=== PATIENT | female | born 1940 ===

== ENCOUNTER 2016-10-07 20:27 | Inpatient (IN) | payer MEDICARE, OTHER ==
[2016-10-07 20:27] VITALS: BMI 34.2
[2016-10-07] MEDS ORDERED: Magnesium Sulfate 2 gm/50 ml 2 GM/50 ML BAG ONE (22:02)
[2016-10-07] MEDS ORDERED: Magnesium Sulfate 2 gm/50 ml 2 GM/50 ML BAG IV STA (22:04)
[2016-10-07] MEDS ORDERED: Albuterol-Ipratrop 3 mg / 0.5 (3 ml) UD INH STA ×3 (22:04→22:08)
[2016-10-07] MEDS ORDERED: Promethazine/Cod 6.25mg-10mg/5ml Syr UD PO STA (22:05)
[2016-10-07 22:16] LABS: BASO # 0.1 K/uL (0.0-0.2); BASO % 1.1 % (0.0-2.0); EOS # 0.1 K/uL (0.0-0.7); EOS % 1.4 % (0.0-4.0); LYMPH # 2.6 K/uL (1.0-4.3); LYMPH % 25.7 % (20.0-40.0); MEAN CORPUSCULAR HEMOGLOBIN 29.1 pg (27.0-31.0); MEAN CORPUSCULAR HGB CONC 33.4 g/dL (33.0-37.0); MEAN PLATELET VOLUME 8.1 fl (7.2-11.7); MONO # 0.5 K/uL (0.0-0.8); MONO % 5.1 % (0.0-10.0); NEUT # 6.7 K/uL (1.8-7.0); NEUT % 66.7 % (50.0-75.0); RED CELL DISTRIBUTION WIDTH 15.2 % (11.5-14.5)
--- NOTE | 2016-10-07 22:17 | ED PDOC ---
HPI: SOB/CHF/COPD Time Seen by Provider: 10/07/16 21:24 Chief Complaint (Nursing): Cough, Cold, Congestion Chief Complaint (Provider): Shortness of Breath History Per: Patient History/Exam Limitations: no limitations Onset/Duration Of Symptoms: Days (2 weeks), Persistent Current Symptoms Are (Timing): Still Present Initiating Event: Upper Respiratory Illness Current Respiratory Medications: See Home Med List Severity: Moderate Associated Symptoms: Productive Cough (white phlegm), Other (bilateral wheeze) Additional Complaint(s): Judy Yoo is a 76 year old female, with a past medical history of coronary artery disease, hypertension, and asthma, who presents to the emergency department for the evaluation of persistent shortness of breath, ongoing for the past 2 weeks. Patient recently saw her primary medical doctor and was prescribed Azithromycin, which she completed; however, no relief was provided. Associated productive cough with white sputum and a bilateral wheeze is currently present. Of note, patient uses a nebulizer every 4 hours. PMD: Christofer Camacho I. Past Medical History Reviewed: Historical Data, Nursing Documentation, Vital Signs Vital Signs: Last Vital Signs Temp 98.0 F 10/08/16 01:27 Pulse 88 10/08/16 01:27 Resp 16 10/08/16 01:27 BP 135/77 10/08/16 01:27 Pulse Ox 100 10/08/16 00:54 - Medical History PMH: Anxiety, Arthritis, Asthma, Bronchitis, CAD, COPD, Emphysema, Gastritis, HTN Denies: HIV, Chronic Kidney Disease Other PMH: Myocardial Infarction, Angina - Surgical History Surgical History: Coronary Stent (x3) - Family History Family History: States: No Known Family Hx - Social History Current smoker - smoking cessation education provided: No Ex-Smoker (has not smoked in the last 12 months): No Alcohol: None Drugs: Denies - Home Medications Home Medications: Ambulatory Orders Medication Instructions Recorded Aspirin [Ecotrin] PO DAILY 10/08/16 Clopidogrel [Plavix] PO DAILY 10/08/16 Esomeprazole Magnesium [Nexium] PO DAILY 10/08/16 Naproxen [Naprosyn Tab] PO DAILY PRN 10/08/16 Simvastatin [Simvastatin] PO DAILY 10/08/16 Valsartan [Diovan] PO DAILY 10/08/16 - Allergies Allergies/Adverse Reactions: Allergies Allergy/AdvReac Type Severity Reaction Status Date / Time ciprofloxacin AdvReac ITCHING Verified 06/09/15 06:16 Curb-65 Severity Score - CURB-65 Severity Score Confusion: No Bun >19mg/dl (>7mmol/L): No Respiratory Rate greater than/equal to 30: No Systolic BP <90 or Diastolic BP less than/equal 60mmHg: No Age >64: Yes Curb-65 Score: 1 Percentage 30-day mortality: 2.7% Review of Systems ROS Statement: Except As Marked, All Systems Reviewed And Found Negative Respiratory: Positive for: Cough, Shortness of Breath, Sputum (white phlegm), Wheezing Physical Exam - Reviewed Nursing Documentation Reviewed: Yes Vital Signs Reviewed: Yes - Physical Exam Appears: Positive for: Non-toxic, No Acute Distress, Uncomfortable Head Exam: Positive for: ATRAUMATIC, NORMOCEPHALIC Skin: Positive for: Normal Color, Warm, Dry Cardiovascular/Chest: Positive for: Regular Rate, Rhythm. Negative for: Murmur Respiratory: Positive for: Wheezing (b/l diffuse expiratory wheeze), Respiratory Distress (mild). Negative for: Normal Breath Sounds Gastrointestinal/Abdominal: Positive for: Normal Exam, Soft. Negative for: Tenderness Back: Positive for: Normal Inspection. Negative for: L CVA Tenderness, R CVA Tenderness Extremity: Positive for: Normal ROM, Swelling (+1 edema lower extremities). Negative for: Tenderness Neurologic/Psych: Positive for: Alert, Oriented - Laboratory Results Result Diagrams: 10/07/16 21:42 10/07/16 21:42 - ECG O2 Sat by Pulse Oximetry: 100 (RA) Pulse Ox Interpretation: Normal - Critical Care Total Time (In Min): 30 Medical Decision Making Medical Decision Makin:24 Initial Impression: 76 year old female with persistent dyspnea and setting of recent outpatient treatment for bronchitis and asthma. Initial Plan: * Chest X-Ray * EKG * CBC * CMP * BNP * Troponin I * Lact Acid, Plasma * Albuterol/Ipratropium 3 ml INH (x3) * Magnesium Sulfate 2 gm in 50 ml IV * Promethazine/Codeine 10 ml PO * methylPREDNISolone 125 mg IVP * Influenza A/B * Peak Flow Pre/Post Treatment (x3) * Blood Culture * Reevaluation Labs reviewed show no clinically sig abnormalities Chest Xray shows RLL infiltrate with effusion Patient will be admitted as d/w Dr Camacho DX Pneumonia, Resp Distress Fair Scribe Attestation: Documented by Gage Rg, acting as a scribe for Farhad Flower MD. Provider Scribe Attestation: All medical record entries made by the Scribe were at my direction and personally dictated by me. I have reviewed the chart and agree that the record accurately reflects my personal performance of the history, physical exam, medical decision making, and the department course for this patient. I have also personally directed, reviewed, and agree with the discharge instructions and disposition. Disposition - Clinical Impression Clinical Impression: Asthma, Respiratory distress, Pneumonia - Disposition Disposition Time: 23:33 Condition: FAIR - Pt Status Changed To: Hospital Disposition Of: Inpatient - Admit Certification Admit to Inpatient:: After my assessment, the patient will require hospitalization for at least two midnights. This is because of the severity of symptoms shown, intensity of services needed, and/or the medical risk in this patient being treated as an outpatient.
[2016-10-07 22:38] LABS: ALB/GLOB RATIO 1.5 (1.0-2.1); ALKALINE PHOSPHATASE 65 U/L (38-126); ALT/SGPT 30 U/L (9-52); AST/SGOT 25 U/L (14-36); BILIRUBIN,TOTAL 1.2 mg/dl (0.2-1.3); BLOOD UREA NITROGEN 16 mg/dl (7-17); CALCIUM 9.8 mg/dL (8.4-10.2); CARBON DIOXIDE 24 mmol/L (22-30); CHLORIDE 104 mmol/L (98-107); GFR AFRICAN-AMERICAN > 60; GLUCOSE,RANDOM 113 mg/dL (65-105); POTASSIUM 4.1 MMOL/L (3.6-5.0); SODIUM 140 mmol/l (132-148); TOTAL PROTEIN 7.1 G/DL (6.3-8.2)
[2016-10-07] MEDS ORDERED: Albuterol-Ipratrop 3 mg / 0.5 (3 ml) UD ONE (23:05)
[2016-10-08] MEDS ORDERED: Azithromycin 500 MG in Sodium Chloride 0.9% 250 ML IVPB STA (00:37)
[2016-10-08] MEDS ORDERED: cefTRIAXone (Rocephin) 1 gm Inj ONE (01:49)
[2016-10-08] MEDS ORDERED: Promethazine/Cod 6.25mg-10mg/5ml Syr UD PO ONE (03:25)
[2016-10-08] MEDS ORDERED: Albuterol-Ipratrop 3 mg / 0.5 (3 ml) UD INH SCH (04:00)
[2016-10-08] MEDS: methylPREDNISolone 60 MG in Sodium Chloride 0.9% 50 ML IV SCH ×4 (04:27→21:49)
[2016-10-08] MEDS: Albuterol-Ipratrop 3 mg / 0.5 (3 ml) UD INH SCH ×3 (07:16→19:10)
[2016-10-08] MEDS: Pantoprazole 40 mg EC Tab PO SCH (08:46)
[2016-10-08] MEDS: Azithromycin 500 MG in Sodium Chloride 0.9% 250 ML IVPB SCH (08:54)
[2016-10-08] MEDS ORDERED: Enoxaparin 30 mg Syringe SC SCH (09:00)
[2016-10-08 09:16] LABS: BASO % 0.1 % (0.0-2.0); EOS % 0.1 % (0.0-4.0); HEMATOCRIT 38.4 % (34.0-47.0); LYMPH # 0.5 K/uL (1.0-4.3); LYMPH % 7.5 % (20.0-40.0); MEAN CELL VOLUME 86.2 fl (81.0-99.0); MEAN CORPUSCULAR HEMOGLOBIN 29.1 pg (27.0-31.0); MEAN CORPUSCULAR HGB CONC 33.7 g/dL (33.0-37.0); MEAN PLATELET VOLUME 8.1 fl (7.2-11.7); MONO % 0.3 % (0.0-10.0); NEUT # 6.5 K/uL (1.8-7.0); PLATELET COUNT 288 K/uL (130-400); RED CELL DISTRIBUTION WIDTH 14.9 % (11.5-14.5)
--- NOTE | 2016-10-08 09:27 | RAD ---
HISTORY: cough COMPARISON: Chest x-ray performed 05/31/15 TECHNIQUE: Chest PA and lateral FINDINGS: Examination limited by habitus. LUNGS: Patchy opacity at the right lung base may reflect infiltrate. Probable mild pulmonary venous congestion. Soft tissue attenuation limits evaluation of the left lung base. Please note that chest x-ray has limited sensitivity for the detection of pulmonary masses. PLEURA: No significant pleural effusion identified. No definite pneumothorax . CARDIOVASCULAR: Cardiomegaly. Atherosclerotic calcifications of the aortic knob. OSSEOUS STRUCTURES: Degenerative changes of the spine. VISUALIZED UPPER ABDOMEN: Unremarkable. OTHER FINDINGS: None. IMPRESSION: Examination markedly limited by habitus. Patchy opacity at the right lung base may reflect pneumonia. Probable mild pulmonary venous congestion. Soft tissue attenuation limits evaluation of the left lung base. Study marked for PA review.
[2016-10-08 09:42] LABS: BLOOD UREA NITROGEN 13 mg/dl (7-17); CALCIUM 9.9 mg/dL (8.4-10.2); CARBON DIOXIDE 23 mmol/L (22-30); CHLORIDE 106 mmol/L (98-107); GFR AFRICAN-AMERICAN > 60; GLUCOSE,RANDOM 199 mg/dL (65-105); POTASSIUM 4.1 MMOL/L (3.6-5.0); SODIUM 141 mmol/l (132-148)
[2016-10-08] MEDS ORDERED: Sodium Chloride 3% for Inhalation 4 ML VIAL.NEB IH PRN (10:56)
[2016-10-08] MEDS: Promethazine 6.25 MG/5 ML CUP PO PRN ×2 (11:52→21:50)
[2016-10-08] MEDS: Enoxaparin 40 mg Syringe SC SCH (11:53)
--- NOTE | 2016-10-08 13:23 | CARD ---
APPROVED REPORT EKG Measurement Heart [id number] <Conclusion> Normal sinus rhythm Normal ECG
[2016-10-08 14:01] LABS: EOSINOPHIL 1 % (0-7); NEUTROPHIL 93 % (42-75); TOTAL CELLS COUNTED 100
[2016-10-08 14:02] LABS: GIANT PLATELETS PRESENT; LARGE PLATELETS PRESENT
--- NOTE | 2016-10-08 16:05 | HP ---
The patient is a 76-year-old female admitted via the Emergency Room because of progressively worsenin g shortness of breath, exercise intolerance, cough, chest tightness for the past several days prior t o presentation. She was seen in the office about 2 weeks prior to this admission and advised admissi on to the hospital, but refused. She has been sick at home, coughing up thick tenacious yellow-green sputum for the past several days. Denies fever or chills, but has shortness of breath and exercise intolerance. PAST MEDICAL HISTORY: Is remarkable for COPD, hypertension, hyperlipidemia, coronary artery disease, status post stent placement in the past and anxiety disorder. FAMILY HISTORY: Noncontributory. SOCIAL HISTORY: She lives alone, does not drink, does not smoke, but her ex- used to smoke. PHYSICAL EXAMINATION: GENERAL: The patient is alert and oriented, appears moderately dyspneic at rest. VITAL SIGNS: Blood pressure 154/68, pulse 69, respiratory rate 19, O2 sat 94% on nasal cannula oxyge n, temperature 97.8 degrees Fahrenheit. SKIN: Shows fair turgor. HEENT: Pupils equal, react to light and accommodation. Mouth shows fair hygiene with mucus engorgem ent of pharynx. NECK: JVP flat. LUNGS: Bilateral coarse rales with wheezing. HEART: S1, S2. ABDOMEN: Soft, nontender, no organomegaly. EXTREMITIES: Shows no edema or cyanosis. CENTRAL NERVOUS SYSTEM: Grossly intact. LABORATORY DATA: Is remarkable for a chest x-ray that shows pneumonia right lung. WBC 10.0, hemoglo bin 12.4, platelet count 277,000. Sodium 140, potassium 4.1, BUN 16, creatinine 0.7. Serum glucose 113. Troponin less than 0.012. EKG: Regular sinus rhythm. IMPRESSION: Pneumonia, right lung, probably community-acquired; history of hypertension, history of coronary artery disease, history of anxiety disorder, and history of hyperlipidemia. PLAN: Aerosolized bronchodilators for COPD, oxygen p.r.n., IV steroids, IV antibiotics. Further the rapy will depend on findings. Antitussives already given. Sputum and blood cultures will be drawn. Christofer aCmacho MD cc: 62 TT: 10/08/2016 16:04:34 dn
[2016-10-09] MEDS: Albuterol-Ipratrop 3 mg / 0.5 (3 ml) UD INH SCH ×4 (02:03→19:35)
[2016-10-09] MEDS: methylPREDNISolone 60 MG in Sodium Chloride 0.9% 50 ML IV SCH ×4 (04:08→21:09)
[2016-10-09] MEDS: Pantoprazole 40 mg EC Tab PO SCH (09:00)
[2016-10-09] MEDS: Azithromycin 500 MG in Sodium Chloride 0.9% 250 ML IVPB SCH (09:17)
--- NOTE | 2016-10-09 10:42 | CP.PCM.PN ---
Subjective - Date & Time of Evaluation Date of Evaluation: 10/09/16 Time of Evaluation: 10:42 - Subjective Subjective: STILL COUGHING SOB AND WHEEZING LESS Objective - Vital Signs/Intake and Output Vital Signs (last 24 hours): Temp Pulse Resp BP Pulse Ox 98 F 97 H 20 170/93 H 99 10/09/16 08:20 10/09/16 08:20 10/09/16 08:20 10/09/16 08:20 10/09/16 08:20 - Medications Medications: Current Medications Acetaminophen (Tylenol 325mg Tab) 650 mg PO Q6 PRN PRN Reason: Headache Last Admin: 10/09/16 09:15 Dose: 650 mg Albuterol/Ipratropium (Duoneb 3 Mg/0.5 Mg (3 Ml) Ud) 3 ml INH RQ6 [facility] Last Admin: 10/09/16 07:28 Dose: 3 ml Aspirin (Ecotrin) 81 mg PO DAILY [facility] Last Admin: 10/09/16 09:00 Dose: 81 mg Atorvastatin Calcium (Lipitor) 10 mg PO DAILY [facility] Last Admin: 10/09/16 09:00 Dose: 10 mg Enoxaparin Sodium (Lovenox) 40 mg SC DAILY [facility] PRN Reason: Protocol Last Admin: 10/08/16 11:53 Dose: 40 mg Methylprednisolone 60 mg/ (Sodium Chloride) 50 mls @ 100 mls/hr IV Q6 [facility] Last Admin: 10/09/16 09:17 Dose: 100 mls/hr Ceftriaxone Sodium 1 gm/ (Sodium Chloride) 100 mls @ 100 mls/hr IVPB DAILY [facility] Last Admin: 10/09/16 09:01 Dose: 100 mls/hr Azithromycin 500 mg/ Sodium (Chloride) 250 mls @ 250 mls/hr IVPB DAILY [facility] Last Admin: 10/09/16 09:17 Dose: 250 mls/hr Naproxen (Naprosyn Tab) 375 mg PO DAILY PRN PRN Reason: Pain, Mild (1-3) Last Admin: 10/08/16 13:56 Dose: 375 mg Pantoprazole Sodium (Protonix Ec Tab) 40 mg PO DAILY [facility] Last Admin: 10/09/16 09:00 Dose: 40 mg Promethazine HCl (Phenergan Syrup) 6.25 mg PO Q6 PRN PRN Reason: Cough Last Admin: 10/08/16 21:50 Dose: 6.25 mg Valsartan (Diovan) 160 mg PO DAILY [facility] - Labs Labs: 10/08/16 08:30 10/08/16 08:30 - Constitutional Appears: No Acute Distress - Head Exam Head Exam: ATRAUMATIC, NORMAL INSPECTION, NORMOCEPHALIC - Eye Exam Eye Exam: EOMI, Normal appearance, PERRL Pupil Exam: NORMAL ACCOMODATION, PERRL - ENT Exam ENT Exam: Mucous Membranes Moist, Normal Exam - Neck Exam Neck Exam: Full ROM, Normal Inspection. absent: Lymphadenopathy - Respiratory Exam Respiratory Exam: Decreased Breath Sounds, Rales, Wheezes, NORMAL BREATHING PATTERN - Cardiovascular Exam Cardiovascular Exam: REGULAR RHYTHM, +S1, +S2. absent: Murmur - GI/Abdominal Exam GI & Abdominal Exam: Soft, Normal Bowel Sounds. absent: Tenderness - Rectal Exam Rectal Exam: NORMAL INSPECTION - Extremities Exam Extremities Exam: Full ROM, Normal Capillary Refill, Normal Inspection. absent : Joint Swelling, Pedal Edema - Back Exam Back Exam: NORMAL INSPECTION - Neurological Exam Neurological Exam: Alert, Awake, CN II-XII Intact, Normal Gait, Oriented x3 - Psychiatric Exam Psychiatric exam: Normal Affect, Normal Mood - Skin Skin Exam: Dry, Intact, Normal Color, Warm Assessment and Plan - Assessment and Plan (Free Text) Assessment: ACUTE EXAC OF COPD PNEUMONIA-COMMUNITY ACQUIRED HTN ASHD Plan: ADJUST BP MEDS CONTINUE RX ORDERED
[2016-10-09] MEDS: Enoxaparin 40 mg Syringe SC SCH (11:01)
[2016-10-09] MEDS: Promethazine 6.25 MG/5 ML CUP PO PRN ×2 (11:07→21:55)
[2016-10-10] MEDS: Albuterol-Ipratrop 3 mg / 0.5 (3 ml) UD INH SCH ×4 (01:15→19:27)
[2016-10-10] MEDS: methylPREDNISolone 60 MG in Sodium Chloride 0.9% 50 ML IV SCH ×4 (04:14→22:00)
--- NOTE | 2016-10-10 08:31 | CP.PCM.PN ---
Subjective - Date & Time of Evaluation Date of Evaluation: 10/10/16 Time of Evaluation: 08:31 - Subjective Subjective: STILL COUGHING AND DYSPNEIC AT REST Objective - Vital Signs/Intake and Output Vital Signs (last 24 hours): Temp Pulse Resp BP Pulse Ox 98.6 F 80 18 169/83 H 93 L 10/10/16 07:54 10/10/16 07:54 10/10/16 07:54 10/10/16 07:54 10/10/16 07:54 - Medications Medications: Current Medications Acetaminophen (Tylenol 325mg Tab) 650 mg PO Q6 PRN PRN Reason: Headache Last Admin: 10/09/16 21:55 Dose: 650 mg Albuterol/Ipratropium (Duoneb 3 Mg/0.5 Mg (3 Ml) Ud) 3 ml INH RQ6 [facility] Last Admin: 10/10/16 07:42 Dose: 3 ml Aspirin (Ecotrin) 81 mg PO DAILY [facility] Last Admin: 10/09/16 09:00 Dose: 81 mg Atorvastatin Calcium (Lipitor) 10 mg PO DAILY [facility] Last Admin: 10/09/16 09:00 Dose: 10 mg Enoxaparin Sodium (Lovenox) 40 mg SC DAILY [facility] PRN Reason: Protocol Last Admin: 10/09/16 11:01 Dose: 40 mg Methylprednisolone 60 mg/ (Sodium Chloride) 50 mls @ 100 mls/hr IV Q6 [facility] Last Admin: 10/10/16 04:14 Dose: 100 mls/hr Ceftriaxone Sodium 1 gm/ (Sodium Chloride) 100 mls @ 100 mls/hr IVPB DAILY [facility] Last Admin: 10/09/16 09:01 Dose: 100 mls/hr Azithromycin 500 mg/ Sodium (Chloride) 250 mls @ 250 mls/hr IVPB DAILY [facility] Last Admin: 10/09/16 09:17 Dose: 250 mls/hr Naproxen (Naprosyn Tab) 375 mg PO DAILY PRN PRN Reason: Pain, Mild (1-3) Last Admin: 10/09/16 12:21 Dose: 375 mg Pantoprazole Sodium (Protonix Ec Tab) 40 mg PO DAILY [facility] Last Admin: 10/09/16 09:00 Dose: 40 mg Promethazine HCl (Phenergan Syrup) 6.25 mg PO Q6 PRN PRN Reason: Cough Last Admin: 10/09/16 21:55 Dose: 6.25 mg Valsartan (Diovan) 160 mg PO DAILY [facility] - Labs Labs: 10/08/16 08:30 10/08/16 08:30 - Constitutional Appears: In Acute Distress - Head Exam Head Exam: ATRAUMATIC, NORMAL INSPECTION, NORMOCEPHALIC - Eye Exam Eye Exam: EOMI, Normal appearance, PERRL Pupil Exam: NORMAL ACCOMODATION, PERRL - ENT Exam ENT Exam: Mucous Membranes Moist, Normal Exam - Neck Exam Neck Exam: Full ROM, Normal Inspection. absent: Lymphadenopathy - Respiratory Exam Respiratory Exam: Decreased Breath Sounds, Prolonged Expiratory Phase, Rales, NORMAL BREATHING PATTERN - Cardiovascular Exam Cardiovascular Exam: REGULAR RHYTHM, +S1, +S2. absent: Murmur - GI/Abdominal Exam GI & Abdominal Exam: Soft, Normal Bowel Sounds. absent: Tenderness - Rectal Exam Rectal Exam: NORMAL INSPECTION - Extremities Exam Extremities Exam: Full ROM, Normal Capillary Refill, Normal Inspection. absent : Joint Swelling, Pedal Edema - Back Exam Back Exam: NORMAL INSPECTION - Neurological Exam Neurological Exam: Alert, Awake, CN II-XII Intact, Normal Gait, Oriented x3 - Psychiatric Exam Psychiatric exam: Normal Affect, Normal Mood - Skin Skin Exam: Dry, Intact, Normal Color, Warm Assessment and Plan - Assessment and Plan (Free Text) Assessment: ACUTE EXAC OF COPD PNEUMONIA ASHD HTN Plan: ADD MUCOMYST TO RX CONSIDER TCU PRIOR TO D/C HOME
[2016-10-10] MEDS: Promethazine 6.25 MG/5 ML CUP PO PRN ×3 (08:37→20:37)
[2016-10-10] MEDS: Enoxaparin 40 mg Syringe SC SCH (08:38)
[2016-10-10] MEDS: Pantoprazole 40 mg EC Tab PO SCH (08:39)
[2016-10-10] MEDS: Azithromycin 500 MG in Sodium Chloride 0.9% 250 ML IVPB SCH (08:40)
--- NOTE | 2016-10-10 12:36 | RAD ---
HISTORY: pneumonia COMPARISON: Chest x-ray performed 10/07/16 TECHNIQUE: Chest PA and lateral FINDINGS: Examination limited by habitus. LUNGS: Azygos lobe, anatomic variant. Mild subsegmental bibasilar atelectasis. Please note that chest x-ray has limited sensitivity for the detection of pulmonary masses. PLEURA: No significant pleural effusion identified. No definite pneumothorax . CARDIOVASCULAR: Borderline cardiomegaly. Atherosclerotic calcifications of the aorta. OSSEOUS STRUCTURES: Osseous demineralization. Degenerative changes. VISUALIZED UPPER ABDOMEN: Unremarkable. OTHER FINDINGS: None. IMPRESSION: Mild subsegmental bibasilar atelectasis.
[2016-10-10] MEDS: Acetylcysteine 20% Inhal Soln (4ml) INH SCH ×2 (13:05→19:27)
[2016-10-10] MEDS ORDERED: Acetylcysteine 20% Inhal Soln (4ml) INH SCH (20:00)
[2016-10-11] MEDS: Albuterol-Ipratrop 3 mg / 0.5 (3 ml) UD INH SCH ×3 (01:23→13:20)
[2016-10-11] MEDS: methylPREDNISolone 60 MG in Sodium Chloride 0.9% 50 ML IV SCH ×2 (04:04→12:40)
[2016-10-11 07:51] LABS: HEMATOCRIT 36.2 % (34.0-47.0); MEAN CELL VOLUME 86.3 fl (81.0-99.0); MEAN CORPUSCULAR HEMOGLOBIN 28.6 pg (27.0-31.0); MEAN CORPUSCULAR HGB CONC 33.1 g/dL (33.0-37.0); RED CELL DISTRIBUTION WIDTH 15.3 % (11.5-14.5); WHITE BLOOD COUNT 11.8 K/uL (4.8-10.8)
[2016-10-11 08:06] LABS: BLOOD UREA NITROGEN 25 mg/dl (7-17); CALCIUM 9.4 mg/dL (8.4-10.2); CARBON DIOXIDE 24 mmol/L (22-30); CHLORIDE 106 mmol/L (98-107); GFR AFRICAN-AMERICAN > 60; GLUCOSE,RANDOM 135 mg/dL (65-105); POTASSIUM 3.6 MMOL/L (3.6-5.0); SODIUM 144 mmol/l (132-148)
[2016-10-11] MEDS: Acetylcysteine 20% Inhal Soln (4ml) INH SCH (08:23)
--- NOTE | 2016-10-11 08:39 | CP.PCM.PN ---
Subjective - Date & Time of Evaluation Date of Evaluation: 10/11/16 Time of Evaluation: 08:39 - Subjective Subjective: REFUSING IV ANTIBIOTICS BECAUSE OF BURNING SENSATION STILL COUGHING WITH SOME SOB Objective - Vital Signs/Intake and Output Vital Signs (last 24 hours): Temp Pulse Resp BP Pulse Ox 99.2 F 62 20 171/72 H 98 10/11/16 07:57 10/11/16 07:57 10/11/16 07:57 10/11/16 07:57 10/11/16 07:57 - Medications Medications: Current Medications Acetaminophen (Tylenol 325mg Tab) 650 mg PO Q6 PRN PRN Reason: Headache Last Admin: 10/10/16 08:35 Dose: 650 mg Acetylcysteine (Acetylcysteine 20%) 2 ml INH RBID [facility] Last Admin: 10/11/16 08:23 Dose: Not Given Albuterol/Ipratropium (Duoneb 3 Mg/0.5 Mg (3 Ml) Ud) 3 ml INH RQ6 [facility] Last Admin: 10/11/16 08:23 Dose: Not Given Aspirin (Ecotrin) 81 mg PO DAILY [facility] Last Admin: 10/10/16 08:38 Dose: 81 mg Atorvastatin Calcium (Lipitor) 10 mg PO DAILY [facility] Last Admin: 10/10/16 08:38 Dose: 10 mg Enoxaparin Sodium (Lovenox) 40 mg SC DAILY [facility] PRN Reason: Protocol Last Admin: 10/10/16 08:38 Dose: 40 mg Methylprednisolone 60 mg/ (Sodium Chloride) 50 mls @ 100 mls/hr IV Q6 [facility] Last Admin: 10/11/16 04:04 Dose: Not Given Ceftriaxone Sodium 1 gm/ (Sodium Chloride) 100 mls @ 100 mls/hr IVPB DAILY [facility] Last Admin: 10/10/16 08:39 Dose: 100 mls/hr Doxycycline Hyclate 100 mg/ (Sodium Chloride) 100 mls @ 100 mls/hr IVPB Q12 [facility] Last Admin: 10/10/16 20:36 Dose: 100 mls/hr Naproxen (Naprosyn Tab) 375 mg PO BID PRN PRN Reason: Pain, moderate (4-7) Last Admin: 10/10/16 20:35 Dose: 375 mg Pantoprazole Sodium (Protonix Ec Tab) 40 mg PO DAILY [facility] Last Admin: 10/10/16 08:39 Dose: 40 mg Promethazine HCl (Phenergan Syrup) 6.25 mg PO Q6 PRN PRN Reason: Cough Last Admin: 10/10/16 20:37 Dose: 6.25 mg Valsartan (Diovan) 160 mg PO DAILY [facility] - Labs Labs: 10/11/16 06:40 10/11/16 06:40 - Constitutional Appears: Well - Head Exam Head Exam: ATRAUMATIC, NORMAL INSPECTION, NORMOCEPHALIC - Eye Exam Eye Exam: EOMI, Normal appearance, PERRL Pupil Exam: NORMAL ACCOMODATION, PERRL - ENT Exam ENT Exam: Mucous Membranes Moist, Normal Exam - Neck Exam Neck Exam: Full ROM, Normal Inspection. absent: Lymphadenopathy - Respiratory Exam Respiratory Exam: Decreased Breath Sounds, Prolonged Expiratory Phase, Rales, NORMAL BREATHING PATTERN - Cardiovascular Exam Cardiovascular Exam: REGULAR RHYTHM, +S1, +S2. absent: Murmur - GI/Abdominal Exam GI & Abdominal Exam: Soft, Normal Bowel Sounds. absent: Tenderness - Rectal Exam Rectal Exam: NORMAL INSPECTION - Extremities Exam Extremities Exam: Full ROM, Normal Capillary Refill, Normal Inspection. absent : Joint Swelling, Pedal Edema - Back Exam Back Exam: NORMAL INSPECTION - Neurological Exam Neurological Exam: Alert, Awake, CN II-XII Intact, Normal Gait, Oriented x3 - Psychiatric Exam Psychiatric exam: Normal Affect, Normal Mood - Skin Skin Exam: Dry, Intact, Normal Color, Warm Assessment and Plan - Assessment and Plan (Free Text) Assessment: ACUTE EXAC OF COPD PNEUMONIA ASHD Plan: PICC LINE CONTINUE IV ANTIBIOTICS TRANSFER TO TCU
[2016-10-11] MEDS: Promethazine 6.25 MG/5 ML CUP PO PRN (09:29)
[2016-10-11] MEDS: Pantoprazole 40 mg EC Tab PO SCH (09:29)
[2016-10-11] MEDS: Enoxaparin 40 mg Syringe SC SCH (09:29)
[2016-10-11] MEDS ORDERED: Lidocaine 1% Inj (20ml) ONE (10:27)
--- NOTE | 2016-10-11 10:45 | PCM.SURG1 ---
Surgeon's Initial Post Op Note - Surgeon's Notes Surgeon: Raghavendra Shaw MD Freight [place]: NONE Type of Anesthesia: Local Pre-Operative Diagnosis: Poor venous access Operative Findings: Patent right basilic vein seen on ultrasound. Post-Operative Diagnosis: Poor venous access Operation Performed: Single lumen picc placement, 35 cm, via the Right basilic vein. Tip in SVC. Specimen/Specimens Removed: none Estimated Blood Loss: EBL {In ML}: 2 Blood Products Given: N/A Drains Used: No Drains Post-Op Condition: Fair Date of Surgery/Procedure: 10/11/16 Time of Surgery/Procedure: 10:40
[2016-10-11 13:41] VITALS: PULSE 84; RESP 20; TEMP 98.1; O2SAT 98
[2016-10-11 14:54] VITALS: BP 164/92
--- NOTE | 2016-10-11 18:44 | CP.PCM.DIS ---
Provider - Provider Date of Admission: 10/08/16 00:38 Attending physician: Christofer Camacho MD Time Spent in preparation of Discharge (in minutes): 35 Diagnosis - Discharge Diagnosis (1) Anxiety and depression Status: Acute (2) Asthma Status: Acute (3) COPD exacerbation Status: Acute (4) Coronary artery disease Status: Acute (5) HTN (hypertension) Status: Acute (6) Pneumonia Status: Acute Hospital Course - Lab Results Lab Results: Most Recent Lab Values WBC 11.8 K/uL (4.8-10.8) H D 10/11/16 06:40 RBC 4.19 Mil/uL (3.80-5.20) 10/11/16 06:40 Hgb 12.0 g/dL (12.0-16.0) 10/11/16 06:40 Hct 36.2 % (34.0-47.0) 10/11/16 06:40 MCV 86.3 fl (81.0-99.0) 10/11/16 06:40 MCH 28.6 pg (27.0-31.0) 10/11/16 06:40 MCHC 33.1 g/dL (33.0-37.0) 10/11/16 06:40 RDW 15.3 % (11.5-14.5) H 10/11/16 06:40 Plt Count 245 K/uL (130-400) 10/11/16 06:40 MPV 8.1 fl (7.2-11.7) 10/08/16 08:30 Neut % (Auto) 92.0 % (50.0-75.0) H 10/08/16 08:30 Lymph % (Auto) 7.5 % (20.0-40.0) L 10/08/16 08:30 [place] % (Auto) 0.3 % (0.0-10.0) 10/08/16 08:30 Eos % (Auto) 0.1 % (0.0-4.0) 10/08/16 08:30 Baso % (Auto) 0.1 % (0.0-2.0) 10/08/16 08:30 Neut # 6.5 K/uL (1.8-7.0) 10/08/16 08:30 Lymph # 0.5 K/uL (1.0-4.3) L 10/08/16 08:30 [place] # 0.0 K/uL (0.0-0.8) 10/08/16 08:30 Eos # 0.0 K/uL (0.0-0.7) 10/08/16 08:30 Baso # 0.0 K/uL (0.0-0.2) 10/08/16 08:30 Neutrophils % (Manual) 93 % (42-75) H 10/08/16 08:30 Lymphocytes % (Manual) 6 % (20-50) L 10/08/16 08:30 Monocytes % (Manual) 0 % (0-10) 10/08/16 08:30 Eosinophils % (Manual) 1 % (0-7) 10/08/16 08:30 Platelet Estimate Normal (NORMAL) 10/08/16 08:30 Large Platelets Present 10/08/16 08:30 Giant Platelets Present 10/08/16 08:30 Poikilocytosis (manual Slight 10/08/16 08:30 Anisocytosis (manual) Slight 10/08/16 08:30 Tear Drop Cells Slight 10/08/16 08:30 Ovalocytes Slight 10/08/16 08:30 Sodium 144 mmol/l (132-148) 10/11/16 06:40 Potassium 3.6 MMOL/L (3.6-5.0) 10/11/16 06:40 Chloride 106 mmol/L (98-107) 10/11/16 06:40 Carbon Dioxide 24 mmol/L (22-30) 10/11/16 06:40 Anion Gap 17 (10-20) 10/11/16 06:40 BUN 25 mg/dl (7-17) H 10/11/16 06:40 Creatinine 0.8 mg/dL (0.7-1.2) 10/11/16 06:40 Est GFR ( Amer) > 60 10/11/16 06:40 Est GFR (Non-Af Amer) > 60 10/11/16 06:40 Random Glucose 135 mg/dL (65-105) H 10/11/16 06:40 Lactic Acid 1.1 MMOL/L (0.7-2.1) 10/07/16 21:42 Calcium 9.4 mg/dL (8.4-10.2) 10/11/16 06:40 Total Bilirubin 1.2 mg/dl (0.2-1.3) 10/07/16 21:42 AST 25 U/L (14-36) 10/07/16 21:42 ALT 30 U/L (9-52) 10/07/16 21:42 Alkaline Phosphatase 65 U/L (38-126) 10/07/16 21:42 Troponin I < 0.0120 ng/mL (0.00-0.120) 10/07/16 21:42 NT-Pro-B Natriuret Pep 83.6 pg/ml (0-900) 10/07/16 21:42 Total Protein 7.1 G/DL (6.3-8.2) 10/07/16 21:42 Albumin 4.2 g/dL (3.5-5.0) 10/07/16 21:42 Globulin 2.8 gm/dL (2.2-3.9) 10/07/16 21:42 Albumin/Globulin Ratio 1.5 (1.0-2.1) 10/07/16 21:42 Influenza Typ A,B (EIA) Negative for flu a/b (NEGATIVE) 10/07/16 22:06 - Hospital Course Hospital Course: cough with sob persists Discharge Exam - Head Exam Head Exam: ATRAUMATIC, NORMAL INSPECTION, NORMOCEPHALIC - Eye Exam Eye Exam: EOMI, Normal appearance, PERRL Pupil Exam: NORMAL ACCOMODATION, PERRL - Respiratory Exam Respiratory Exam: Decreased Breath Sounds, Rales, Wheezes - GI/Abdominal Exam GI & Abdominal Exam: Normal Bowel Sounds - Rectal Exam Rectal Exam: NORMAL INSPECTION - Neurological Exam Neurological exam: Alert, CN II-XII Intact, Normal Gait, Oriented x3, Reflexes Normal - Psychiatric Exam Psychiatric exam: Normal Affect, Normal Mood - Skin Skin Exam: Dry, Intact, Normal Color, Warm Discharge Plan - Discharge Medications Prescriptions: Doxycycline Hyclate 100 mg IV Q12 #14 vial cefTRIAXone 1 gm [Rocephin 1 gram IVPB] 1 gm IVPB DAILY #7 bag methylPREDNISolone [Solu-MEDROL] 60 mg IV Q8 #6 vial - Follow Up Plan Condition: FAIR Disposition: REHAB FACILITY/REHAB UNIT Patient education suggested?: Yes Instructions: Asthma (DC) Additional Instructions: transfer to transitional care for iv antibiotic rx
--- NOTE | 2016-10-12 10:28 | VASCULAR ---
PROCEDURE: Date of procedure: 10/11/2016 Procedure: 1. Placement of a right arm PICC with ultrasound and fluoroscopic guidance, CPT 75736 2. PICC tip confirmation with spot radiograph and is in the superior vena cava Medications: 1 percent lidocaine Total Fluoro time: 14.4 seconds Radiation: 1.82 mGy EBL: 2 cc HISTORY: Poor venous access TECHNIQUE: Following informed consent and procedure time-out, the patient was placed supine on the interventional table and the right arm prepped and draped in the usual sterile fashion. Ultrasound showed a patent and compressible right basilic vein. After the skin was anesthetized with lidocaine, the basilic vein was accessed with micro micropuncture technique using ultrasound guidance. A guidewire was then advanced under fluoroscopic guidance into the superior vena cava. An image documenting ultrasound guidance for vascular access was permanently saved. The length of the single-lumen 4 [place] PICC was trimmed to 35 centimeters and advanced through a peel-away sheath. The PICC was position with tip of PICC confirm a spot radiograph the superior vena cava. The PICC was secured to the patient's skin. The PICC was flushed. A biopatch and sterile dressing was applied. IMPRESSION: Placement of a single-lumen 4 [place] PICC trimmed to 35 centimeters via right basilic vein. The tip of the PICC is confirmed with spot radiograph and is in the superior vena cava.
== END 2016-10-11 16:57 | DRG 190 ==
LOC: H.ER 20:27 → H.ERHOLD 10-08 00:38 → H.MEDSURG1 10-08 02:55
PROVIDERS: ADMIT Internal Medicine Pulmonary Disease; ATTEND Internal Medicine Pulmonary Disease
PROC: 02HV33Z Insertion of Infusion Device into Superior Vena Cava, Percutaneous Approach (ICD-10-PCS; principal; 2016-10-11)
DX: J44.0 Chronic obstructive pulmonary disease with (acute) lower respiratory infection (principal); J18.9 Pneumonia, unspecified organism; J44.1 Chronic obstructive pulmonary disease with (acute) exacerbation; E78.5 Hyperlipidemia, unspecified; I10 Essential (primary) hypertension; F32.9 Major depressive disorder, single episode, unspecified; F41.9 Anxiety disorder, unspecified; I25.10 Atherosclerotic heart disease of native coronary artery without angina pectoris; Z95.5 Presence of coronary angioplasty implant and graft; I25.2 Old myocardial infarction; J45.909 Unspecified asthma, uncomplicated; Z88.3 Allergy status to other anti-infective agents; K29.70 Gastritis, unspecified, without bleeding; M19.90 Unspecified osteoarthritis, unspecified site

== ENCOUNTER 2016-10-11 12:17 | Inpatient (IN) | payer OTHER ==
[2016-10-11 17:22] VITALS: BMI 35.9
[2016-10-11] MEDS ORDERED: Albuterol-Ipratrop 3 mg / 0.5 (3 ml) UD INH PRN (18:02)
[2016-10-11 18:23] VITALS: RESP 20
[2016-10-12] MEDS: methylPREDNISolone 60 MG in Sodium Chloride 0.9% 50 ML IV SCH ×3 (00:25→17:09)
[2016-10-12] MEDS ORDERED: MethylPREDNISolone 40 mg Vial IV SCH (01:00)
[2016-10-12] MEDS ORDERED: Promethazine 6.25 MG/5 ML CUP PO PRN (07:45)
[2016-10-12] MEDS: Enoxaparin 40 mg Syringe SC SCH (09:42)
[2016-10-12] MEDS: Promethazine 6.25 MG/5 ML CUP PO SCH ×3 (09:43→22:00)
[2016-10-12] MEDS: Pantoprazole 40 mg EC Tab PO SCH (09:43)
[2016-10-12] MEDS: Acetylcysteine 20% Inhal Soln (4ml) INH SCH ×2 (10:31→19:32)
[2016-10-12] MEDS: Albuterol-Ipratrop 3 mg / 0.5 (3 ml) UD INH SCH ×3 (10:32→19:32)
--- NOTE | 2016-10-12 11:28 | HP ---
ADMITTING HISTORY AND PHYSICAL HISTORY OF PRESENT ILLNESS: The patient is a 76-year-old female who was transferred from the medical floor to the transitional care unit for IV antibiotic therapy and physical therapy. She was admitte d because of pneumonia and acute exacerbation of chronic obstructive pulmonary disease. She has had exercise intolerance, cough, chest tightness for the past several days prior to presentation. She wa s seen in the office 3 weeks prior to this presentation, and advised admission to the hospital where she had refused, and finally showed up in the Emergency Room and was found to have pneumonia. PAST MEDICAL HISTORY: Remarkable for COPD, which is due to secondhand smoke from the ex-. David joyner also has a history of coronary artery disease, hypertension, hyperlipidemia, gastritis. FAMILY HISTORY: Nonrevealing. SOCIAL HISTORY: She lives alone, does not smoke or drink. REVIEW OF SYSTEMS: Essentially remarkable for occasional shortness of breath. PHYSICAL EXAMINATION: GENERAL: The patient is alert, oriented, appears to be in mild distress, especially on ambulation. VITAL SIGNS: Blood pressure 160/96, pulse of 85, respiratory rate 20. She is afebrile. O2 sat 96% on nasal cannula oxygen. SKIN: Shows fair turgor. HEENT: Pupils are equal and reactive to light and accommodation. NECK: JVP flat. Mouth shows fair hygiene. LUNGS: Fair aeration with wheezing and rales at both bases. HEART: S1, S2. BREASTS: Normal. ABDOMEN: Soft, nontender. No organomegaly. EXTREMITIES: Show no edema or cyanosis. CENTRAL NERVOUS SYSTEM: Grossly intact. LABORATORY DATA: Pending. Chest x-ray pending, but x-ray done a week ago showed pneumonia. IMPRESSION: Acute exacerbation of chronic obstructive pulmonary disease, pneumonia, hypertension, hi story of coronary artery disease, history of hyperlipidemia, and history of mild anxiety disorder. PLAN: Continue intravenous antibiotic, intravenous steroids, aerosolized bronchodilators. Would obt ain cardiac evaluation regarding uncontrolled hypertension. Christofer Camacho MD cc: [id number] TT: 10/12/2016 11:28:22 jn
--- NOTE | 2016-10-12 16:17 | CP.PCM.CON ---
History of Present Illness - History of Present Illness History of Present Illness: I was asked to see patient by Dr. Camacho. Patient is a 76 year old female with a history of HTN CAD s/p PCI LAD, hypercholesterolemia who presents with progressive cough. The patient had symtpoms for about 2 weeks prior to her arrival. The patient was found to have pneumonia and has been treated with antibiotics. The patient is currently on TCU. Blood pressure has been difficult to control. She has intermittent productive cough. She denies chest pain. Review of Systems - Constitutional Constitutional: absent: As Per HPI, Anorexia, Chills, Daytime Sleepiness, Excessive Sweating, Fatigue, Fever, Frequent Falls, Headache, Increased Appetite , Lethargy, Malaise, Night Sweats, Snoring, Sleep Apnea, Weight Gain, Weight Loss, Weakness, Other - EENT Eyes: absent: As Per HPI, Blind Spots, Blurred Vision, Change in Vision, Decreased Night Vision, Diplopia, Discharge, Dry Eye, Exophthalmos, Floaters, Irritation, Itchy Eyes, Loss of Peripheral Vision, Pain, Photophobia, Requires Corrective Lenses, Sees Flashes, Spots in Vision, Tunnel Vision, Other Visual Disturbances, Loss of Vision, Other Ears: absent: As Per HPI, Decreased Hearing, Ear Discharge, Ear Pain, Tinnitus, Abnormal Hearing, Disequilibrium, Dizziness, Other Nose/Mouth/Throat: absent: As Per HPI, Epistaxis, Nasal Congestion, Nasal Discharge, Nasal Obstruction, Nasal Trauma, Nose Pain, Post Nasal Drip, Sinus Pain, Sinus Pressure, Bleeding Gums, Change in Voice, Dental Pain, Dry Mouth, Dysphagia, Halitosis, Hoarsness, Lip Swelling, Mouth Lesions, Mouth Pain, Odynophagia, Sore Throat, Throat Swelling, Tongue Swelling, Facial Pain, Neck Pain, Neck Mass, Other - Cardiovascular Cardiovascular: absent: As Per HPI, Acrocyanosis, Chest Pain, Chest Pain at Rest , Chest Pain with Activity, Claudication, Diaphoresis, Dyspnea, Dyspnea on Exertion, Edema, Irregular Heart Rhythm, Pain Radiating to Arm/Neck/Jaw, Leg Edema, Leg Ulcers, Lightheadedness, Orthopnea, Palpitations, Paroxysmal Nocturnal Dyspnea, Pedal Edema, Radiating Pain, Rapid Heart Rate, Slow Heart Rate, Syncope, Other - Respiratory Respiratory: Cough, Pain with Coughing - Gastrointestinal Gastrointestinal: absent: As Per HPI, Abdominal Pain, Belching, Bloating, Change in Bowel Habits, Change in Stool Character, Coffee Ground Emesis, Constipation, Cramping, Diarrhea, Dyspepsia, Dysphagia, Early Satiety, Excessive Flatus, Fecal Incontinence, Heartburn, Hematemesis, Hematochezia, Loose Stools, Melena, Nausea, Odynophagia, Temesmus, Vomiting, Other - Genitourinary Genitourinary: absent: As Per HPI, Change in Urinary Stream, Difficulty Urinating, Dysuria, Flank Pain, Hematuria, Pyuria, Nocturia, Urinary Incontinence, Urinary Frequency, Urinary Hesitance, Urinary Urgency, Voiding Freq/Small Amts, Freq UTI, Hx Renal/Bladder Calculi, Hx /Renal Surgery, Bladder Distension, Other - Musculoskeletal Musculoskeletal: absent: As Per HPI, Abnormal Gait, Arthralgias, Atrophy, Back Pain, Deformity, Joint Swelling, Limited Range of Motion, Loss of Height, Muscle Cramps, Muscle Weakness, Myalgias, Neck Pain, Numbness, Radiating Pain into Limb, Stiffness, Tingling, Other - Integumentary Integumentary: absent: As Per HPI, Acne, Alopecia, Bleeding Lesions, Change in Hair, Change in Nails, Change in Pigmentation, Changing Lesions, Dry Skin, Erythema, Furuncle, Hirsutism, Lesions, New Lesions, Non-Healing Lesions, Photosensitivity, Pruritus, Rash, Skin Pain, Skin Ulcer, Sores, Striae, Swelling , Unusual Bruising, Wounds, Jaundice, Other - Neurological Neurological: absent: As Per HPI, Abnormal Gait, Abnormal Hearing, Abnormal Movements, Abnormal Speech, Behavioral Changes, Burning Sensations, Confusion, Convulsions, Disequilibrium, Dizziness, Numbness, Focal Weakness, Frequent Falls , Headaches, Lack of Coordination, Loss of Vision, Memory Loss, Paresthesias, Radicular Pain, Restless Legs, Sensory Deficit, Syncope, Tingling, Tremor, Vertigo, Weakness, Other Visual Disturbances, Other - Psychiatric Psychiatric: absent: As Per HPI, Abnormal Sleep Pattern, Anhedonia, Anxiety, Auditory Hallucinations, Behavioral Changes, Change in Appetite, Change in Libido, Confusion, Depression, Difficulty Concentrating, Hallucinations, Homicidal Ideation, Hopelessness, Irritability, Memory Loss, Mood Swings, Panic Attacks, Paranoia, Suicidal Ideation, Visual Hallucinations, Tactile Hallucinations, Other - Endocrine Endocrine: absent: As Per HPI, Change in Body Appearance, Change in Libido, Cold Intolorance, Deepening of Voice, Excessive Sweating, Fatigue, Flushing, Heat Intolorance, Increase in Ring/Shoe/Hat Size, Palpitations, Polydipsia, Polyphagia, Polyuria, Other - Hematologic/Lymphatic Hematologic: absent: As Per HPI, Easy Bleeding, Easy Bruising, Lymphadenopathy, Other Past Patient History - Past Medical History & Family History Past Medical History?: Yes - Past Social History Smoking Status: Never Smoked - CARDIAC Hx Cardiac Disorders: Yes Hx Hypertension: Yes - PULMONARY Hx Respiratory Disorders: Yes Hx Asthma: Yes Hx Bronchitis: Yes Hx Chronic Obstructive Pulmonary Disease (COPD): Yes Hx Emphysema: Yes Hx Pneumonia: Yes - NEUROLOGICAL Hx Neurological Disorder: No - HEENT Hx HEENT Problems: No - RENAL Hx Chronic Kidney Disease: No - ENDOCRINE/METABOLIC Hx Endocrine Disorders: No Hx Diabetes Insipidus: No - HEMATOLOGICAL/ONCOLOGICAL Hx Blood Disorders: No Hx AIDS: No Hx Human Immunodeficiency Virus (HIV): No - INTEGUMENTARY Hx Dermatological Problems: No - MUSCULOSKELETAL/RHEUMATOLOGICAL Hx Musculoskeletal Disorders: Yes Hx Falls: No - GASTROINTESTINAL Hx Gastrointestinal Disorders: Yes Hx Gastritis: Yes - GENITOURINARY/GYNECOLOGICAL Hx Genitourinary Disorders: No - PSYCHIATRIC Hx Psychophysiologic Disorder: Yes Hx Anxiety: Yes Hx Substance Use: No - SURGICAL HISTORY Hx Surgeries: Yes Hx Coronary Stent: Yes (x3) - ANESTHESIA Hx Anesthesia: Yes Hx Anesthesia Reactions: No Hx Malignant Hyperthermia: No Meds Allergies/Adverse Reactions: Allergies Allergy/AdvReac Type Severity Reaction Status Date / Time ciprofloxacin AdvReac ITCHING Verified 10/11/16 17:21 - Medications Medications: Current Medications Acetaminophen (Tylenol 325mg Tab) 650 mg PO Q6 PRN PRN Reason: Pain, moderate (4-7) Acetylcysteine (Acetylcysteine 20%) 2 ml INH RBID [facility] Last Admin: 10/12/16 10:31 Dose: 2 ml Albuterol/Ipratropium (Duoneb 3 Mg/0.5 Mg (3 Ml) Ud) 3 ml INH RQ6 [facility] Last Admin: 10/12/16 14:00 Dose: 3 ml Aspirin (Ecotrin) 81 mg PO DAILY [facility] Last Admin: 10/12/16 09:41 Dose: 81 mg Atorvastatin Calcium (Lipitor) 10 mg PO HS [facility] Last Admin: 10/11/16 21:27 Dose: 10 mg Enoxaparin Sodium (Lovenox) 40 mg SC DAILY [facility] PRN Reason: Protocol Last Admin: 10/12/16 09:42 Dose: 40 mg Ceftriaxone Sodium 1 gm/ (Sodium Chloride) 100 mls @ 100 mls/hr IVPB DAILY@ 1700 [facility] Doxycycline Hyclate 100 mg/ (Sodium Chloride) 100 mls @ 100 mls/hr IVPB Q12@ 0500,1700 [facility] Last Admin: 10/12/16 05:29 Dose: 100 mls/hr Methylprednisolone 60 mg/ (Sodium Chloride) 50.96 mls @ 50.96 mls/hr IV Q8 [facility] Last Admin: 10/12/16 09:44 Dose: 50.96 mls/hr Naproxen (Naprosyn Tab) 375 mg PO BID PRN PRN Reason: Pain, Mild (1-3) Pantoprazole Sodium (Protonix Ec Tab) 40 mg PO DAILY [facility] Last Admin: 10/12/16 09:43 Dose: 40 mg Promethazine HCl (Phenergan Syrup) 6.25 mg PO Q6 [facility] Last Admin: 10/12/16 09:43 Dose: 6.25 mg Valsartan (Diovan) 320 mg PO DAILY [facility] Last Admin: 10/12/16 10:08 Dose: 320 mg Physical Exam - Constitutional Appears: Non-toxic - Head Exam Head Exam: NORMAL INSPECTION - Eye Exam Eye Exam: Normal appearance - ENT Exam ENT Exam: Mucous Membranes Moist - Neck Exam Neck exam: Positive for: Full Rom - Respiratory Exam Respiratory Exam: Decreased Breath Sounds - Cardiovascular Exam Cardiovascular Exam: REGULAR RHYTHM - GI/Abdominal Exam GI & Abdominal Exam: Normal Bowel Sounds - Rectal Exam Rectal Exam: Deferred - Extremities Exam Extremities exam: Positive for: pedal edema - Back Exam Back exam: NORMAL INSPECTION - Neurological Exam Neurological exam: Alert, Oriented x3 - Psychiatric Exam Psychiatric exam: Normal Affect - Skin Skin Exam: Normal Color Results - Vital Signs Recent Vital Signs: Last Vital Signs Temp 97.9 F 10/12/16 07:58 Pulse 76 10/12/16 10:32 Resp 20 10/12/16 07:58 BP 150/80 10/12/16 07:58 Pulse Ox 98 10/12/16 07:58 Assessment & Plan (1) Coronary artery disease Assessment and Plan: no current angina. recommend plavix Status: Acute (2) HTN (hypertension) Assessment and Plan: blood pressure will need improved control. add Norvasc 10 mg daily Status: Acute (3) Pneumonia Assessment and Plan: on antibiotics Status: Acute
[2016-10-12] MEDS ORDERED: cefTRIAXone IV 1 gm in Dextros 50 ML BAG IVPB SCH (17:00)
[2016-10-13] MEDS: methylPREDNISolone 60 MG in Sodium Chloride 0.9% 50 ML IV SCH ×2 (01:30→08:39)
[2016-10-13] MEDS: Albuterol-Ipratrop 3 mg / 0.5 (3 ml) UD INH SCH ×4 (01:55→19:30)
[2016-10-13] MEDS: Promethazine 6.25 MG/5 ML CUP PO SCH ×4 (04:00→21:00)
[2016-10-13 07:13] LABS: BASO % 0.1 % (0.0-2.0); LYMPH # 0.4 K/uL (1.0-4.3); LYMPH % 5.8 % (20.0-40.0); MEAN CELL VOLUME 86.4 fl (81.0-99.0); MEAN CORPUSCULAR HEMOGLOBIN 29.1 pg (27.0-31.0); MEAN CORPUSCULAR HGB CONC 33.7 g/dL (33.0-37.0); MEAN PLATELET VOLUME 8.7 fl (7.2-11.7); MONO # 0.2 K/uL (0.0-0.8); MONO % 2.6 % (0.0-10.0); NEUT # 6.8 K/uL (1.8-7.0); NEUT % 91.5 % (50.0-75.0); NRBC % 0.1 % (0.0-0.0); PLATELET COUNT 215 K/uL (130-400); WHITE BLOOD COUNT 7.5 K/uL (4.8-10.8)
[2016-10-13 07:14] LABS: BLOOD UREA NITROGEN 25 mg/dl (7-17); CALCIUM 9.1 mg/dL (8.4-10.2); CARBON DIOXIDE 28 mmol/L (22-30); CHLORIDE 100 mmol/L (98-107); CHOLESTEROL 148 mg/dL (0-199); GFR AFRICAN-AMERICAN > 60; GLUCOSE,RANDOM 180 mg/dL (65-105); POTASSIUM 3.9 MMOL/L (3.6-5.0); SODIUM 139 mmol/l (132-148)
[2016-10-13] MEDS: Acetylcysteine 20% Inhal Soln (4ml) INH SCH ×2 (07:47→19:30)
[2016-10-13] MEDS: Enoxaparin 40 mg Syringe SC SCH (08:37)
[2016-10-13] MEDS: Pantoprazole 40 mg EC Tab PO SCH (08:38)
--- NOTE | 2016-10-13 08:50 | CP.PCM.PN ---
Subjective - Date & Time of Evaluation Date of Evaluation: 10/13/16 Time of Evaluation: 08:50 - Subjective Subjective: STILL COUGHING NO CHEST PAINS SOB IMPROVING Objective - Vital Signs/Intake and Output Vital Signs (last 24 hours): Temp Pulse Resp BP Pulse Ox 97.7 F 78 20 171/91 H 92 L 10/13/16 08:15 10/13/16 08:38 10/13/16 08:15 10/13/16 08:38 10/13/16 08:15 - Medications Medications: Current Medications Acetaminophen (Tylenol 325mg Tab) 650 mg PO Q6 PRN PRN Reason: Pain, moderate (4-7) Acetylcysteine (Acetylcysteine 20%) 2 ml INH RBID [facility] Last Admin: 10/13/16 07:47 Dose: 2 ml Albuterol/Ipratropium (Duoneb 3 Mg/0.5 Mg (3 Ml) Ud) 3 ml INH RQ6 [facility] Last Admin: 10/13/16 07:47 Dose: 3 ml Amlodipine Besylate (Norvasc) 10 mg PO DAILY [facility] Last Admin: 10/13/16 08:38 Dose: 10 mg Aspirin (Ecotrin) 81 mg PO DAILY [facility] Last Admin: 10/13/16 08:37 Dose: 81 mg Atorvastatin Calcium (Lipitor) 10 mg PO HS [facility] Last Admin: 10/12/16 22:00 Dose: 10 mg Enoxaparin Sodium (Lovenox) 40 mg SC DAILY [facility] PRN Reason: Protocol Last Admin: 10/13/16 08:37 Dose: 40 mg Ceftriaxone Sodium 1 gm/ (Sodium Chloride) 100 mls @ 100 mls/hr IVPB DAILY@ 1700 [facility] Last Admin: 10/12/16 18:48 Dose: 100 mls/hr Doxycycline Hyclate 100 mg/ (Sodium Chloride) 100 mls @ 100 mls/hr IVPB Q12@ 0500,1700 [facility] Last Admin: 10/13/16 05:27 Dose: 100 mls/hr Methylprednisolone 60 mg/ (Sodium Chloride) 50.96 mls @ 50.96 mls/hr IV Q8 [facility] Last Admin: 10/13/16 08:39 Dose: 50.96 mls/hr Naproxen (Naprosyn Tab) 375 mg PO BID PRN PRN Reason: Pain, Mild (1-3) Pantoprazole Sodium (Protonix Ec Tab) 40 mg PO DAILY [facility] Last Admin: 10/13/16 08:38 Dose: 40 mg Promethazine HCl (Phenergan Syrup) 6.25 mg PO Q6 [facility] Last Admin: 10/13/16 04:00 Dose: 6.25 mg Valsartan (Diovan) 320 mg PO DAILY [facility] Last Admin: 10/13/16 08:39 Dose: 320 mg - Labs Labs: 10/13/16 06:53 10/13/16 06:53 - Constitutional Appears: No Acute Distress - Head Exam Head Exam: ATRAUMATIC, NORMAL INSPECTION, NORMOCEPHALIC - Eye Exam Eye Exam: EOMI, Normal appearance, PERRL Pupil Exam: NORMAL ACCOMODATION, PERRL - ENT Exam ENT Exam: Mucous Membranes Moist, Normal Exam - Neck Exam Neck Exam: Full ROM, Normal Inspection. absent: Lymphadenopathy - Respiratory Exam Respiratory Exam: Decreased Breath Sounds, Prolonged Expiratory Phase, Wheezes, NORMAL BREATHING PATTERN - Cardiovascular Exam Cardiovascular Exam: REGULAR RHYTHM, +S1, +S2. absent: Murmur - GI/Abdominal Exam GI & Abdominal Exam: Soft, Normal Bowel Sounds. absent: Tenderness - Rectal Exam Rectal Exam: NORMAL INSPECTION - Extremities Exam Extremities Exam: Full ROM, Normal Capillary Refill, Normal Inspection. absent : Joint Swelling, Pedal Edema - Back Exam Back Exam: NORMAL INSPECTION - Neurological Exam Neurological Exam: Alert, Awake, CN II-XII Intact, Normal Gait, Oriented x3 - Psychiatric Exam Psychiatric exam: Normal Affect, Normal Mood - Skin Skin Exam: Dry, Intact, Normal Color, Warm Assessment and Plan - Assessment and Plan (Free Text) Assessment: ACUTE EXAC OF COPD PNEUMONIA HTN HYPERGLYCEMIA DUE TO STEROIDS Plan: TAPER STEROIDS CONTINUE OTHER RX
[2016-10-13] MEDS: methylPREDNISolone 40 MG in Sodium Chloride 0.9% 50 ML IV SCH ×2 (10:12→20:54)
[2016-10-13 11:10] LABS: METAMYELOCYTE 1 % (0-0); MYELOCYTE 1 % (0-0); NEUTROPHIL 93 % (42-75); TOTAL CELLS COUNTED 100
--- NOTE | 2016-10-13 13:23 | RAD ---
HISTORY: PNEUMONIA COMPARISON: No prior. TECHNIQUE: Chest PA and lateral FINDINGS: LUNGS: No active pulmonary disease. PLEURA: No significant pleural effusion identified. No pneumothorax apparent. CARDIOVASCULAR: Normal. OSSEOUS STRUCTURES: No significant abnormalities. VISUALIZED UPPER ABDOMEN: Normal. OTHER FINDINGS: None. IMPRESSION: No active disease.
[2016-10-14] MEDS: Albuterol-Ipratrop 3 mg / 0.5 (3 ml) UD INH SCH ×4 (01:00→19:26)
[2016-10-14] MEDS: Promethazine 6.25 MG/5 ML CUP PO SCH ×4 (05:12→21:18)
[2016-10-14] MEDS: Acetylcysteine 20% Inhal Soln (4ml) INH SCH ×2 (07:26→19:26)
[2016-10-14] MEDS: methylPREDNISolone 40 MG in Sodium Chloride 0.9% 50 ML IV SCH (09:36)
[2016-10-14] MEDS: Enoxaparin 40 mg Syringe SC SCH (09:36)
[2016-10-14] MEDS: Pantoprazole 40 mg EC Tab PO SCH (09:39)
--- NOTE | 2016-10-14 11:51 | CP.PCM.PN ---
Subjective - Date & Time of Evaluation Date of Evaluation: 10/14/16 Time of Evaluation: 11:51 - Subjective Subjective: STILL COUGHING SOB IMPROVED NO CHEST PAINS Objective - Vital Signs/Intake and Output Vital Signs (last 24 hours): Temp Pulse Resp BP Pulse Ox 97.7 F 89 20 166/80 H 98 10/14/16 08:40 10/14/16 09:39 10/14/16 08:40 10/14/16 09:39 10/14/16 08:40 - Medications Medications: Current Medications Acetaminophen (Tylenol 325mg Tab) 650 mg PO Q6 PRN PRN Reason: Pain, moderate (4-7) Acetylcysteine (Acetylcysteine 20%) 2 ml INH RBID [facility] Last Admin: 10/14/16 07:26 Dose: 2 ml Albuterol/Ipratropium (Duoneb 3 Mg/0.5 Mg (3 Ml) Ud) 3 ml INH RQ6 [facility] Last Admin: 10/14/16 07:26 Dose: 3 ml Amlodipine Besylate (Norvasc) 10 mg PO DAILY [facility] Last Admin: 10/14/16 09:39 Dose: 10 mg Aspirin (Ecotrin) 81 mg PO DAILY [facility] Last Admin: 10/14/16 09:37 Dose: 81 mg Atorvastatin Calcium (Lipitor) 10 mg PO HS [facility] Last Admin: 10/13/16 21:00 Dose: 10 mg Enoxaparin Sodium (Lovenox) 40 mg SC DAILY [facility] PRN Reason: Protocol Last Admin: 10/14/16 09:36 Dose: 40 mg Ceftriaxone Sodium 1 gm/ (Sodium Chloride) 100 mls @ 100 mls/hr IVPB DAILY@ 1700 [facility] Last Admin: 10/13/16 16:08 Dose: 100 mls/hr Doxycycline Hyclate 100 mg/ (Sodium Chloride) 100 mls @ 100 mls/hr IVPB Q12@ 0500,1700 [facility] Last Admin: 10/14/16 04:56 Dose: 100 mls/hr Methylprednisolone 40 mg/ (Sodium Chloride) 50.64 mls @ 50.96 mls/hr IV Q12 [facility] Last Admin: 10/14/16 09:36 Dose: 50.96 mls/hr Naproxen (Naprosyn Tab) 375 mg PO BID PRN PRN Reason: Pain, Mild (1-3) Pantoprazole Sodium (Protonix Ec Tab) 40 mg PO DAILY [facility] Last Admin: 10/14/16 09:39 Dose: 40 mg Promethazine HCl (Phenergan Syrup) 6.25 mg PO Q6 [facility] Last Admin: 10/14/16 09:39 Dose: 6.25 mg Valsartan (Diovan) 320 mg PO DAILY [facility] Last Admin: 10/13/16 08:39 Dose: 320 mg - Labs Labs: 10/13/16 06:53 10/13/16 06:53 - Constitutional Appears: No Acute Distress - Head Exam Head Exam: ATRAUMATIC, NORMAL INSPECTION, NORMOCEPHALIC - Eye Exam Eye Exam: EOMI, Normal appearance, PERRL Pupil Exam: NORMAL ACCOMODATION, PERRL - ENT Exam ENT Exam: Mucous Membranes Moist, Normal Exam - Neck Exam Neck Exam: Full ROM, Normal Inspection. absent: Lymphadenopathy - Respiratory Exam Respiratory Exam: Decreased Breath Sounds, Prolonged Expiratory Phase, NORMAL BREATHING PATTERN - Cardiovascular Exam Cardiovascular Exam: REGULAR RHYTHM, +S1, +S2. absent: Murmur - GI/Abdominal Exam GI & Abdominal Exam: Soft, Normal Bowel Sounds. absent: Tenderness - Rectal Exam Rectal Exam: NORMAL INSPECTION - Extremities Exam Extremities Exam: Full ROM, Normal Capillary Refill, Normal Inspection. absent : Joint Swelling, Pedal Edema - Back Exam Back Exam: NORMAL INSPECTION - Neurological Exam Neurological Exam: Alert, Awake, CN II-XII Intact, Normal Gait, Oriented x3 - Psychiatric Exam Psychiatric exam: Normal Affect, Normal Mood - Skin Skin Exam: Dry, Intact, Normal Color, Warm Assessment and Plan - Assessment and Plan (Free Text) Assessment: COPD-IMPROVING PNEUMONIA-RESOLVED ASHD HTN Plan: TAPER STEROIDS CHEST PT
[2016-10-15] MEDS: Albuterol-Ipratrop 3 mg / 0.5 (3 ml) UD INH SCH ×4 (01:10→19:50)
[2016-10-15] MEDS: Promethazine 6.25 MG/5 ML CUP PO SCH ×4 (04:54→21:05)
[2016-10-15] MEDS: Acetylcysteine 20% Inhal Soln (4ml) INH SCH ×2 (09:15→19:49)
[2016-10-15] MEDS: Enoxaparin 40 mg Syringe SC SCH (09:20)
[2016-10-15] MEDS: Pantoprazole 40 mg EC Tab PO SCH (09:22)
[2016-10-15] MEDS: methylPREDNISolone 40 MG in Sodium Chloride 0.9% 50 ML IV SCH (09:24)
--- NOTE | 2016-10-15 10:47 | CP.PCM.PN ---
Subjective - Date & Time of Evaluation Date of Evaluation: 10/15/16 Time of Evaluation: 10:47 - Subjective Subjective: CONTINUES TO SHOW CLINICAL IMPROVEMENT COUGH LESS NO SOB Objective - Vital Signs/Intake and Output Vital Signs (last 24 hours): Temp Pulse Resp BP Pulse Ox 97.0 F L 78 20 137/80 100 10/15/16 09:01 10/15/16 09:20 10/15/16 09:01 10/15/16 09:20 10/15/16 09:01 - Medications Medications: Current Medications Acetaminophen (Tylenol 325mg Tab) 650 mg PO Q6 PRN PRN Reason: Pain, moderate (4-7) Acetylcysteine (Acetylcysteine 20%) 2 ml INH RBID [facility] Last Admin: 10/14/16 19:26 Dose: Not Given Albuterol/Ipratropium (Duoneb 3 Mg/0.5 Mg (3 Ml) Ud) 3 ml INH RQ6 [facility] Last Admin: 10/15/16 01:10 Dose: 3 ml Amlodipine Besylate (Norvasc) 10 mg PO DAILY [facility] Last Admin: 10/15/16 09:20 Dose: 10 mg Aspirin (Ecotrin) 81 mg PO DAILY [facility] Last Admin: 10/15/16 09:20 Dose: 81 mg Atorvastatin Calcium (Lipitor) 10 mg PO HS [facility] Last Admin: 10/14/16 21:18 Dose: 10 mg Ceftriaxone Sodium 1 gm/ (Sodium Chloride) 100 mls @ 100 mls/hr IVPB DAILY@ 1700 [facility] Last Admin: 10/14/16 18:30 Dose: 100 mls/hr Doxycycline Hyclate 100 mg/ (Sodium Chloride) 100 mls @ 100 mls/hr IVPB Q12@ 0500,1700 [facility] Last Admin: 10/15/16 04:54 Dose: 100 mls/hr Methylprednisolone 40 mg/ (Sodium Chloride) 50.64 mls @ 50.96 mls/hr IV DAILY [facility] Last Admin: 10/15/16 09:24 Dose: 50.96 mls/hr Naproxen (Naprosyn Tab) 375 mg PO BID PRN PRN Reason: Pain, Mild (1-3) Last Admin: 10/14/16 19:48 Dose: 375 mg Pantoprazole Sodium (Protonix Ec Tab) 40 mg PO DAILY [facility] Last Admin: 05/27/17 09:22 Dose: 40 mg Promethazine HCl (Phenergan Syrup) 6.25 mg PO Q6 [facility] Last Admin: 10/15/16 09:22 Dose: 6.25 mg Valsartan (Diovan) 320 mg PO DAILY [facility] Last Admin: 10/15/16 09:17 Dose: 320 mg - Labs Labs: 10/13/16 06:53 10/13/16 06:53 - Constitutional Appears: No Acute Distress - Head Exam Head Exam: ATRAUMATIC, NORMAL INSPECTION, NORMOCEPHALIC - Eye Exam Eye Exam: EOMI, Normal appearance, PERRL Pupil Exam: NORMAL ACCOMODATION, PERRL - ENT Exam ENT Exam: Mucous Membranes Moist, Normal Exam - Neck Exam Neck Exam: Full ROM, Normal Inspection. absent: Lymphadenopathy - Respiratory Exam Respiratory Exam: Prolonged Expiratory Phase, NORMAL BREATHING PATTERN - Cardiovascular Exam Cardiovascular Exam: REGULAR RHYTHM, +S1, +S2. absent: Murmur - GI/Abdominal Exam GI & Abdominal Exam: Soft, Normal Bowel Sounds. absent: Tenderness - Rectal Exam Rectal Exam: NORMAL INSPECTION - Extremities Exam Extremities Exam: Full ROM, Normal Capillary Refill, Normal Inspection. absent : Joint Swelling, Pedal Edema - Back Exam Back Exam: NORMAL INSPECTION - Neurological Exam Neurological Exam: Alert, Awake, CN II-XII Intact, Normal Gait, Oriented x3 - Psychiatric Exam Psychiatric exam: Normal Affect, Normal Mood - Skin Skin Exam: Dry, Intact, Normal Color, Warm Assessment and Plan - Assessment and Plan (Free Text) Assessment: COPD-IMPROVING PNEUMONIA-RESOLVED HTN-IMPROVED Plan: CONTINUE RX ORDERED
[2016-10-16] MEDS: Albuterol-Ipratrop 3 mg / 0.5 (3 ml) UD INH SCH ×4 (01:02→19:14)
[2016-10-16] MEDS: Promethazine 6.25 MG/5 ML CUP PO SCH ×4 (03:36→22:24)
[2016-10-16] MEDS: Acetylcysteine 20% Inhal Soln (4ml) INH SCH ×2 (07:53→19:14)
[2016-10-16] MEDS: methylPREDNISolone 40 MG in Sodium Chloride 0.9% 50 ML IV SCH (09:00)
[2016-10-16] MEDS: Pantoprazole 40 mg EC Tab PO SCH (09:36)
--- NOTE | 2016-10-16 13:53 | CP.PCM.PN ---
Subjective - Date & Time of Evaluation Date of Evaluation: 10/16/16 Time of Evaluation: 13:53 - Subjective Subjective: STILL COUGHING BUT SOB IMPROVED Objective - Vital Signs/Intake and Output Vital Signs (last 24 hours): Temp Pulse Resp BP Pulse Ox 98.1 F 81 20 169/82 H 99 10/16/16 08:18 10/16/16 09:34 10/16/16 08:18 10/16/16 09:34 10/16/16 08:18 - Medications Medications: Current Medications Acetaminophen (Tylenol 325mg Tab) 650 mg PO Q6 PRN PRN Reason: Pain, moderate (4-7) Acetylcysteine (Acetylcysteine 20%) 2 ml INH RBID [facility] Last Admin: 10/16/16 07:53 Dose: 2 ml Albuterol/Ipratropium (Duoneb 3 Mg/0.5 Mg (3 Ml) Ud) 3 ml INH RQ6 [facility] Last Admin: 10/16/16 13:27 Dose: 3 ml Amlodipine Besylate (Norvasc) 10 mg PO DAILY [facility] Last Admin: 10/16/16 09:34 Dose: 10 mg Aspirin (Ecotrin) 81 mg PO DAILY [facility] Last Admin: 10/16/16 09:37 Dose: 81 mg Atorvastatin Calcium (Lipitor) 10 mg PO HS [facility] Last Admin: 10/15/16 21:05 Dose: 10 mg Hydrochlorothiazide (Hydrodiuril) 25 mg PO DAILY [facility] Last Admin: 10/16/16 09:36 Dose: 25 mg Ceftriaxone Sodium 1 gm/ (Sodium Chloride) 100 mls @ 100 mls/hr IVPB DAILY@ 1700 [facility] Last Admin: 10/15/16 16:06 Dose: 100 mls/hr Doxycycline Hyclate 100 mg/ (Sodium Chloride) 100 mls @ 100 mls/hr IVPB Q12@ 0500,1700 [facility] Last Admin: 10/16/16 05:06 Dose: 100 mls/hr Methylprednisolone 40 mg/ (Sodium Chloride) 50.64 mls @ 50.96 mls/hr IV DAILY [facility] Last Admin: 10/16/16 09:00 Dose: 50.96 mls/hr Naproxen (Naprosyn Tab) 375 mg PO BID PRN PRN Reason: Pain, Mild (1-3) Last Admin: 10/16/16 10:41 Dose: 375 mg Pantoprazole Sodium (Protonix Ec Tab) 40 mg PO DAILY [facility] Last Admin: 10/16/16 09:36 Dose: 40 mg Promethazine HCl (Phenergan Syrup) 6.25 mg PO Q6 [facility] Last Admin: 10/16/16 10:37 Dose: 6.25 mg Valsartan (Diovan) 320 mg PO DAILY [facility] Last Admin: 10/16/16 09:35 Dose: 320 mg - Labs Labs: 10/13/16 06:53 10/13/16 06:53 - Constitutional Appears: No Acute Distress - Head Exam Head Exam: ATRAUMATIC, NORMAL INSPECTION, NORMOCEPHALIC - Eye Exam Eye Exam: EOMI, Normal appearance, PERRL Pupil Exam: NORMAL ACCOMODATION, PERRL - ENT Exam ENT Exam: Mucous Membranes Moist, Normal Exam - Neck Exam Neck Exam: Full ROM, Normal Inspection. absent: Lymphadenopathy - Respiratory Exam Respiratory Exam: Decreased Breath Sounds, Prolonged Expiratory Phase, NORMAL BREATHING PATTERN - Cardiovascular Exam Cardiovascular Exam: REGULAR RHYTHM, +S1, +S2. absent: Murmur - GI/Abdominal Exam GI & Abdominal Exam: Soft, Normal Bowel Sounds. absent: Tenderness - Rectal Exam Rectal Exam: NORMAL INSPECTION - Extremities Exam Extremities Exam: Full ROM, Normal Capillary Refill, Normal Inspection. absent : Joint Swelling, Pedal Edema - Back Exam Back Exam: NORMAL INSPECTION - Neurological Exam Neurological Exam: Alert, Awake, CN II-XII Intact, Normal Gait, Oriented x3 - Psychiatric Exam Psychiatric exam: Normal Affect, Normal Mood - Skin Skin Exam: Dry, Intact, Normal Color, Warm Assessment and Plan - Assessment and Plan (Free Text) Assessment: PNEUMONIA RESOLVED COPD IMPROVING HTN Plan: CONTINUE SAME RX REPEAT LABS IN AM
[2016-10-16] MEDS: Enoxaparin 40 mg Syringe SC SCH (14:38)
[2016-10-17] MEDS: Albuterol-Ipratrop 3 mg / 0.5 (3 ml) UD INH SCH ×4 (01:11→19:15)
[2016-10-17] MEDS: Promethazine 6.25 MG/5 ML CUP PO SCH ×4 (04:30→21:23)
[2016-10-17 06:56] LABS: BASO % 0.2 % (0.0-2.0); HEMATOCRIT 38.3 % (34.0-47.0); LYMPH # 1.2 K/uL (1.0-4.3); LYMPH % 11.4 % (20.0-40.0); MEAN CELL VOLUME 87.1 fl (81.0-99.0); MEAN CORPUSCULAR HEMOGLOBIN 28.7 pg (27.0-31.0); MEAN PLATELET VOLUME 8.6 fl (7.2-11.7); MONO # 0.7 K/uL (0.0-0.8); MONO % 6.3 % (0.0-10.0); NEUT # 8.8 K/uL (1.8-7.0); NEUT % 82.1 % (50.0-75.0); NRBC % 0.1 % (0.0-0.0); RED CELL DISTRIBUTION WIDTH 15.4 % (11.5-14.5); WHITE BLOOD COUNT 10.8 K/uL (4.8-10.8)
[2016-10-17 07:05] LABS: BLOOD UREA NITROGEN 28 mg/dl (7-17); CALCIUM 9.1 mg/dL (8.4-10.2); CARBON DIOXIDE 30 mmol/L (22-30); CHLORIDE 98 mmol/L (98-107); GFR AFRICAN-AMERICAN > 60; GLUCOSE,RANDOM 135 mg/dL (65-105); POTASSIUM 3.5 MMOL/L (3.6-5.0); SODIUM 137 mmol/l (132-148)
[2016-10-17] MEDS: Acetylcysteine 20% Inhal Soln (4ml) INH SCH ×2 (08:22→19:14)
[2016-10-17] MEDS: Enoxaparin 40 mg Syringe SC SCH (09:26)
[2016-10-17] MEDS: Pantoprazole 40 mg EC Tab PO SCH (09:29)
[2016-10-17] MEDS: methylPREDNISolone 40 MG in Sodium Chloride 0.9% 50 ML IV SCH (09:29)
--- NOTE | 2016-10-17 12:26 | CP.PCM.PN ---
Subjective - Date & Time of Evaluation Date of Evaluation: 10/17/16 Time of Evaluation: 12:26 - Subjective Subjective: C/O ARTHRITIS PAINS IN SHOULDERS COUGH IMPROVED NO SOB/CHEST PAINS Objective - Vital Signs/Intake and Output Vital Signs (last 24 hours): Temp Pulse Resp BP Pulse Ox 97.2 F L 81 20 158/81 H 96 10/17/16 08:10 10/17/16 09:28 10/17/16 08:10 10/17/16 09:28 10/17/16 08:10 - Medications Medications: Current Medications Acetaminophen (Tylenol 325mg Tab) 650 mg PO Q6 PRN PRN Reason: Pain, moderate (4-7) Acetylcysteine (Acetylcysteine 20%) 2 ml INH RBID [facility] Last Admin: 10/17/16 08:22 Dose: 2 ml Albuterol/Ipratropium (Duoneb 3 Mg/0.5 Mg (3 Ml) Ud) 3 ml INH RQ6 [facility] Last Admin: 10/17/16 08:23 Dose: 3 ml Amlodipine Besylate (Norvasc) 10 mg PO DAILY [facility] Last Admin: 10/17/16 09:28 Dose: 10 mg Aspirin (Ecotrin) 81 mg PO DAILY [facility] Last Admin: 10/17/16 09:26 Dose: 81 mg Atorvastatin Calcium (Lipitor) 10 mg PO HS [facility] Last Admin: 10/16/16 22:24 Dose: 10 mg Enoxaparin Sodium (Lovenox) 40 mg SC DAILY [facility] PRN Reason: Protocol Last Admin: 10/17/16 09:26 Dose: 40 mg Hydrochlorothiazide (Hydrodiuril) 25 mg PO DAILY [facility] Last Admin: 10/17/16 09:26 Dose: 25 mg Ceftriaxone Sodium 1 gm/ (Sodium Chloride) 100 mls @ 100 mls/hr IVPB DAILY@ 1700 [facility] Last Admin: 10/16/16 17:00 Dose: 100 mls/hr Doxycycline Hyclate 100 mg/ (Sodium Chloride) 100 mls @ 100 mls/hr IVPB Q12@ 0500,1700 [facility] Last Admin: 10/17/16 05:30 Dose: 100 mls/hr Methylprednisolone 40 mg/ (Sodium Chloride) 50.64 mls @ 50.96 mls/hr IV DAILY [facility] Last Admin: 10/17/16 09:29 Dose: 50.96 mls/hr Naproxen (Naprosyn Tab) 375 mg PO BID PRN PRN Reason: Pain, Mild (1-3) Last Admin: 10/17/16 09:27 Dose: 375 mg Pantoprazole Sodium (Protonix Ec Tab) 40 mg PO DAILY [facility] Last Admin: 10/17/16 09:29 Dose: 40 mg Promethazine HCl (Phenergan Syrup) 6.25 mg PO Q6 [facility] Last Admin: 10/17/16 09:29 Dose: 6.25 mg Valsartan (Diovan) 320 mg PO DAILY [facility] Last Admin: 10/17/16 09:25 Dose: 320 mg - Labs Labs: 10/17/16 06:05 10/17/16 06:05 - Constitutional Appears: Well - Head Exam Head Exam: ATRAUMATIC, NORMAL INSPECTION, NORMOCEPHALIC - Eye Exam Eye Exam: EOMI, Normal appearance, PERRL Pupil Exam: NORMAL ACCOMODATION, PERRL - ENT Exam ENT Exam: Mucous Membranes Moist, Normal Exam - Neck Exam Neck Exam: Full ROM, Normal Inspection. absent: Lymphadenopathy - Respiratory Exam Respiratory Exam: Prolonged Expiratory Phase, NORMAL BREATHING PATTERN - Cardiovascular Exam Cardiovascular Exam: REGULAR RHYTHM, +S1, +S2. absent: Murmur - GI/Abdominal Exam GI & Abdominal Exam: Soft, Normal Bowel Sounds. absent: Tenderness - Rectal Exam Rectal Exam: NORMAL INSPECTION - Extremities Exam Extremities Exam: Full ROM, Normal Capillary Refill, Normal Inspection. absent : Joint Swelling, Pedal Edema - Back Exam Back Exam: NORMAL INSPECTION - Neurological Exam Neurological Exam: Alert, Awake, CN II-XII Intact, Normal Gait, Oriented x3 - Psychiatric Exam Psychiatric exam: Normal Affect, Normal Mood - Skin Skin Exam: Dry, Intact, Normal Color, Warm Assessment and Plan - Assessment and Plan (Free Text) Assessment: COPD IMPROVED PNEUMONIA-RESOLVED HTN ASHD ARTHRITIS HYPERGLYCEMIA IMPROVED Plan: CONTINUE SAME RX
[2016-10-18] MEDS: Albuterol-Ipratrop 3 mg / 0.5 (3 ml) UD INH SCH ×4 (00:59→20:23)
[2016-10-18] MEDS: Promethazine 6.25 MG/5 ML CUP PO SCH ×4 (04:47→21:38)
[2016-10-18] MEDS: Acetylcysteine 20% Inhal Soln (4ml) INH SCH ×3 (07:35→20:24)
--- NOTE | 2016-10-18 08:15 | CP.PCM.PN ---
Subjective - Date & Time of Evaluation Date of Evaluation: 10/18/16 Time of Evaluation: 08:16 - Subjective Subjective: CONTINUES TO IMPROVE DENIES CHEST PAIN/SOB COUGH LESS AFEBRILE Objective - Vital Signs/Intake and Output Vital Signs (last 24 hours): Temp Pulse Resp BP Pulse Ox 97.7 F 100 H 20 130/63 100 10/17/16 20:58 10/17/16 20:58 10/17/16 20:58 10/17/16 20:58 10/17/16 20:58 - Medications Medications: Current Medications Acetaminophen (Tylenol 325mg Tab) 650 mg PO Q6 PRN PRN Reason: Pain, moderate (4-7) Acetylcysteine (Acetylcysteine 20%) 2 ml INH RBID [facility] Last Admin: 10/18/16 07:35 Dose: 2 ml Albuterol/Ipratropium (Duoneb 3 Mg/0.5 Mg (3 Ml) Ud) 3 ml INH RQ6 [facility] Last Admin: 10/18/16 07:36 Dose: 3 ml Amlodipine Besylate (Norvasc) 10 mg PO DAILY [facility] Last Admin: 10/17/16 09:28 Dose: 10 mg Aspirin (Ecotrin) 81 mg PO DAILY [facility] Last Admin: 10/17/16 09:26 Dose: 81 mg Atorvastatin Calcium (Lipitor) 10 mg PO HS [facility] Last Admin: 10/17/16 21:22 Dose: 10 mg Enoxaparin Sodium (Lovenox) 40 mg SC DAILY [facility] PRN Reason: Protocol Last Admin: 10/17/16 09:26 Dose: 40 mg Hydrochlorothiazide (Hydrodiuril) 25 mg PO DAILY [facility] Last Admin: 10/17/16 09:26 Dose: 25 mg Doxycycline Hyclate 100 mg/ (Sodium Chloride) 100 mls @ 100 mls/hr IVPB Q12@ 0500,1700 [facility] Last Admin: 10/18/16 04:48 Dose: 100 mls/hr Methylprednisolone 40 mg/ (Sodium Chloride) 50.64 mls @ 50.96 mls/hr IV DAILY [facility] Last Admin: 10/17/16 09:29 Dose: 50.96 mls/hr Naproxen (Naprosyn Tab) 375 mg PO BID PRN PRN Reason: Pain, Mild (1-3) Last Admin: 10/17/16 09:27 Dose: 375 mg Pantoprazole Sodium (Protonix Ec Tab) 40 mg PO DAILY [facility] Last Admin: 10/17/16 09:29 Dose: 40 mg Promethazine HCl (Phenergan Syrup) 6.25 mg PO Q6 [facility] Last Admin: 10/18/16 04:47 Dose: 6.25 mg Valsartan (Diovan) 320 mg PO DAILY [facility] Last Admin: 10/17/16 09:25 Dose: 320 mg - Labs Labs: 10/17/16 06:05 10/17/16 06:05 - Constitutional Appears: No Acute Distress - Head Exam Head Exam: ATRAUMATIC, NORMAL INSPECTION, NORMOCEPHALIC - Eye Exam Eye Exam: EOMI, Normal appearance, PERRL Pupil Exam: NORMAL ACCOMODATION, PERRL - ENT Exam ENT Exam: Mucous Membranes Moist, Normal Exam - Neck Exam Neck Exam: Full ROM, Normal Inspection. absent: Lymphadenopathy - Respiratory Exam Respiratory Exam: Clear to Ausculation Bilateral, Prolonged Expiratory Phase, NORMAL BREATHING PATTERN - Cardiovascular Exam Cardiovascular Exam: REGULAR RHYTHM, +S1, +S2. absent: Murmur - GI/Abdominal Exam GI & Abdominal Exam: Soft, Normal Bowel Sounds. absent: Tenderness - Rectal Exam Rectal Exam: NORMAL INSPECTION - Extremities Exam Extremities Exam: Full ROM, Normal Capillary Refill, Normal Inspection. absent : Joint Swelling, Pedal Edema - Back Exam Back Exam: NORMAL INSPECTION - Neurological Exam Neurological Exam: Alert, Awake, CN II-XII Intact, Normal Gait, Oriented x3 - Psychiatric Exam Psychiatric exam: Normal Affect, Normal Mood - Skin Skin Exam: Dry, Intact, Normal Color, Warm Assessment and Plan - Assessment and Plan (Free Text) Assessment: COPD IMPROVED PNEUMONIA-RESOLVED HTN-STABLE ASHD STABLE Plan: TAPER STEROIDS DISCHARGE IN AM IF STABLE
[2016-10-18] MEDS: methylPREDNISolone 40 MG in Sodium Chloride 0.9% 50 ML IV SCH (08:21)
[2016-10-18] MEDS: Enoxaparin 40 mg Syringe SC SCH (08:22)
[2016-10-18] MEDS: Pantoprazole 40 mg EC Tab PO SCH (08:24)
[2016-10-18 20:22] VITALS: TEMP 98.2
[2016-10-19] MEDS: Albuterol-Ipratrop 3 mg / 0.5 (3 ml) UD INH SCH ×2 (01:15→07:45)
[2016-10-19] MEDS: Promethazine 6.25 MG/5 ML CUP PO SCH ×2 (05:09→09:43)
[2016-10-19] MEDS: Acetylcysteine 20% Inhal Soln (4ml) INH SCH (07:45)
[2016-10-19 08:02] VITALS: BP 150/87; PULSE 107; O2SAT 98
[2016-10-19] MEDS: Pantoprazole 40 mg EC Tab PO SCH (08:35)
[2016-10-19] MEDS: Enoxaparin 40 mg Syringe SC SCH (08:36)
[2016-10-19] MEDS: methylPREDNISolone 40 MG in Sodium Chloride 0.9% 50 ML IV SCH (09:42)
--- NOTE | 2016-10-19 10:30 | CP.PCM.DIS ---
Provider - Provider Date of Admission: 10/11/16 17:22 Attending physician: Christofer Chung MD Time Spent in preparation of Discharge (in minutes): 36 Diagnosis - Discharge Diagnosis (1) Anxiety and depression Status: Acute (2) COPD exacerbation Status: Acute (3) Coronary artery disease Status: Acute (4) HTN (hypertension) Status: Acute (5) Pneumonia Status: Acute Hospital Course - Lab Results Lab Results: Most Recent Lab Values WBC 10.8 K/uL (4.8-10.8) 10/17/16 06:05 RBC 4.39 Mil/uL (3.80-5.20) 10/17/16 06:05 Hgb 12.6 g/dL (12.0-16.0) 10/17/16 06:05 Hct 38.3 % (34.0-47.0) 10/17/16 06:05 MCV 87.1 fl (81.0-99.0) 10/17/16 06:05 MCH 28.7 pg (27.0-31.0) 10/17/16 06:05 MCHC 33.0 g/dL (33.0-37.0) 10/17/16 06:05 RDW 15.4 % (11.5-14.5) H 10/17/16 06:05 Plt Count 192 K/uL (130-400) 10/17/16 06:05 MPV 8.6 fl (7.2-11.7) 10/17/16 06:05 Neut % (Auto) 82.1 % (50.0-75.0) H 10/17/16 06:05 Lymph % (Auto) 11.4 % (20.0-40.0) L 10/17/16 06:05 [place] % (Auto) 6.3 % (0.0-10.0) 10/17/16 06:05 Eos % (Auto) 0.0 % (0.0-4.0) 10/17/16 06:05 Baso % (Auto) 0.2 % (0.0-2.0) 10/17/16 06:05 Neut # 8.8 K/uL (1.8-7.0) H 10/17/16 06:05 Lymph # 1.2 K/uL (1.0-4.3) 10/17/16 06:05 [place] # 0.7 K/uL (0.0-0.8) 10/17/16 06:05 Eos # 0.0 K/uL (0.0-0.7) 10/17/16 06:05 Baso # 0.0 K/uL (0.0-0.2) 10/17/16 06:05 Neutrophils % (Manual) 93 % (42-75) H 10/13/16 06:53 Lymphocytes % (Manual) 4 % (20-50) L 10/13/16 06:53 Monocytes % (Manual) 1 % (0-10) 10/13/16 06:53 Metamyelocytes % 1 % (0-0) H 10/13/16 06:53 Myelocytes % 1 % (0-0) H 10/13/16 06:53 Platelet Estimate Normal (NORMAL) 10/13/16 06:53 Anisocytosis (manual) Slight 10/13/16 06:53 Sodium 137 mmol/l (132-148) 10/17/16 06:05 Potassium 3.5 MMOL/L (3.6-5.0) L 10/17/16 06:05 Chloride 98 mmol/L (98-107) 10/17/16 06:05 Carbon Dioxide 30 mmol/L (22-30) 10/17/16 06:05 Anion Gap 13 (10-20) 10/17/16 06:05 BUN 28 mg/dl (7-17) H 10/17/16 06:05 Creatinine 0.7 mg/dL (0.7-1.2) 10/17/16 06:05 Est GFR ( Amer) > 60 10/17/16 06:05 Est GFR (Non-Af Amer) > 60 10/17/16 06:05 Random Glucose 135 mg/dL (65-105) H 10/17/16 06:05 Calcium 9.1 mg/dL (8.4-10.2) 10/17/16 06:05 Triglycerides 107 mg/DL (0-149) 10/13/16 06:53 Cholesterol 148 mg/dL (0-199) 10/13/16 06:53 LDL Cholesterol Direct 82 mg/dL (0-129) 10/13/16 06:53 HDL Cholesterol 54 MG/DL (30-70) 10/13/16 06:53 - Hospital Course Hospital Course: shortness of breath resolved no chest pain/cough Discharge Exam - Head Exam Head Exam: ATRAUMATIC, NORMAL INSPECTION, NORMOCEPHALIC - Eye Exam Eye Exam: EOMI, Normal appearance, PERRL Pupil Exam: NORMAL ACCOMODATION, PERRL - GI/Abdominal Exam GI & Abdominal Exam: Normal Bowel Sounds - Rectal Exam Rectal Exam: NORMAL INSPECTION - Neurological Exam Neurological exam: Alert, CN II-XII Intact, Normal Gait, Oriented x3, Reflexes Normal - Psychiatric Exam Psychiatric exam: Normal Affect, Normal Mood - Skin Skin Exam: Dry, Intact, Normal Color, Warm Discharge Plan - Follow Up Plan Condition: GOOD Disposition: HOME/ ROUTINE Patient education suggested?: Yes Additional Instructions: discharge today follow up with dr chung
== END 2016-10-19 12:30 | disposition home or self-care (01) | DRG 190 ==
LOC: H.TCU 17:22
PROVIDERS: ADMIT Internal Medicine Pulmonary Disease; ATTEND Internal Medicine Pulmonary Disease
PROC: F07L0FZ Range of Motion and Joint Mobility Treatment of Musculoskeletal System - Lower Back / Lower Extremity using Assistive, Adaptive, Supportive or Protective Equipment (ICD-10-PCS; principal; 2016-10-11)
PROC: F07K0FZ Range of Motion and Joint Mobility Treatment of Musculoskeletal System - Upper Back / Upper Extremity using Assistive, Adaptive, Supportive or Protective Equipment (ICD-10-PCS; 2016-10-11)
PROC: 5A0955Z Assistance with Respiratory Ventilation, Greater than 96 Consecutive Hours (ICD-10-PCS; 2016-10-11)
DX: J44.1 Chronic obstructive pulmonary disease with (acute) exacerbation (principal); J18.9 Pneumonia, unspecified organism; J44.0 Chronic obstructive pulmonary disease with (acute) lower respiratory infection; E78.00 Pure hypercholesterolemia, unspecified; E78.5 Hyperlipidemia, unspecified; F32.9 Major depressive disorder, single episode, unspecified; F41.9 Anxiety disorder, unspecified; I10 Essential (primary) hypertension; I25.10 Atherosclerotic heart disease of native coronary artery without angina pectoris; K29.70 Gastritis, unspecified, without bleeding; T38.0X5A Adverse effect of glucocorticoids and synthetic analogues, initial encounter; R73.9 Hyperglycemia, unspecified; Z88.3 Allergy status to other anti-infective agents; M19.012 Primary osteoarthritis, left shoulder; M19.011 Primary osteoarthritis, right shoulder; Z95.5 Presence of coronary angioplasty implant and graft

== ENCOUNTER 2017-02-11 09:36 | Inpatient (IN) | payer MEDICARE, OTHER ==
[2017-02-11 09:36] VITALS: BMI 34.2
[2017-02-11] MEDS ORDERED: Albuterol-Ipratrop 3 mg / 0.5 (3 ml) UD IH STA (10:05)
--- NOTE | 2017-02-11 10:09 | ED PDOC ---
HPI: Back Time Seen by Provider: 02/11/17 09:53 Chief Complaint (Nursing): Back Pain History Per: Patient Onset/Duration Of Symptoms: Days (3) Current Symptoms Are (Timing): Still Present Quality Of Discomfort: Sharp Severity: Moderate Pain Scale Rating Of: 3 Previous Symptoms: Back Pain Associated Symptoms: None Exacerbating Factor(s): Movement Additional Complaint(s): Sharp right mid upper back pain x 3 days assoc with SOB. Demies cough or fever. Pain worse on movement and inspiration. Past Medical History Vital Signs: Last Vital Signs Temp 97 F L 02/11/17 09:49 Pulse 83 02/11/17 09:49 Resp 18 02/11/17 09:49 BP Pulse Ox 99 02/11/17 09:49 - Medical History PMH: Anxiety, Arthritis, Asthma, Bronchitis, CAD, COPD, Emphysema, Gastritis, HTN, Pneumonia Denies: HIV, Chronic Kidney Disease - Surgical History Surgical History: Coronary Stent (x3) - Family History Family History: States: Unknown Family Hx - Home Medications Home Medications: Ambulatory Orders Medication Instructions Recorded Aspirin [Ecotrin] 81 mg PO DAILY 10/08/16 Clopidogrel [Plavix] 75 mg PO DAILY 10/08/16 Esomeprazole Magnesium [Nexium] 40 mg PO DAILY 10/08/16 Naproxen [Naprosyn Tab] 375 mg PO DAILY PRN 10/08/16 Simvastatin 10 mg PO DAILY 10/08/16 Valsartan [Diovan] 80 mg PO DAILY 10/08/16 Doxycycline Hyclate 100 mg IV Q12 #14 vial 10/11/16 cefTRIAXone 1 gm [Rocephin 1 gram 1 gm IVPB DAILY #7 bag 10/11/16 IVPB] methylPREDNISolone [Solu-MEDROL] 60 mg IV Q8 #6 vial 10/11/16 Albuterol/Ipratropium [Duoneb 3 3 ml INH RQ6 #100 10/19/16 mg/0.5 mg (3 ml) UD] Promethazine DM [Phenergan DM 10 ml PO Q6 #240 dose 10/19/16 Syrup] Promethazine [Phenergan Syrup] 6.25 mg PO Q6 #240 10/19/16 Valsartan [Diovan] 320 mg PO DAILY #90 tab 10/19/16 amLODIPine [Norvasc] 10 mg PO DAILY #90 tab 10/19/16 - Allergies Allergies/Adverse Reactions: Allergies Allergy/AdvReac Type Severity Reaction Status Date / Time ciprofloxacin AdvReac ITCHING Verified 10/11/16 17:21 Review of Systems ROS Statement: Except As Marked, All Systems Reviewed And Found Negative Constitutional: Negative for: Fever Respiratory: Positive for: Shortness of Breath Musculoskeletal: Positive for: Back Pain Physical Exam - Reviewed Nursing Documentation Reviewed: Yes Vital Signs Reviewed: Yes - Physical Exam Appears: Positive for: Non-toxic, No Acute Distress Head Exam: Positive for: ATRAUMATIC, NORMAL INSPECTION, NORMOCEPHALIC Skin: Positive for: Normal Color, Warm, DRY Eye Exam: Positive for: EOMI, Normal appearance, PERRL ENT: Positive for: Normal ENT Inspection Neck: Positive for: Normal, Painless ROM Cardiovascular/Chest: Positive for: Regular Rate, Rhythm Respiratory: Positive for: Decreased Breath Sounds, Rhonchi. Negative for: Wheezing, Respiratory Distress Gastrointestinal/Abdominal: Positive for: Normal Exam, Bowel Sounds, Soft Back: Positive for: Normal Inspection, Other (Tenderness right mid and infrascapular area. No rashes) Extremity: Positive for: Normal ROM Neurologic/Psych: Positive for: Alert, Oriented - ECG O2 Sat by Pulse Oximetry: 99 Disposition - Clinical Impression Clinical Impression: Pneumonia, COPD exacerbation - Patient ED Disposition Is Patient to be Admitted: Yes - Disposition Disposition Time: 11:30 Condition: FAIR Forms: [facility] (Indonesian) - Pt Status Changed To: Hospital Disposition Of: Observation - POA Present On Arrival: None
[2017-02-11] MEDS ORDERED: Albuterol-Ipratrop 3 mg / 0.5 (3 ml) UD ONE (10:11)
--- NOTE | 2017-02-11 10:57 | RAD ---
HISTORY: sob COMPARISON: Comparison is made to 10/13/2016 TECHNIQUE: Chest PA and lateral FINDINGS: LUNGS: Heterogeneous opacities at the right lower lobe which appears smaller in size and associated with mild elevation of the right hemidiaphragm. The possibility of mass lesion or pneumonia should be considered. PLEURA: No significant pleural effusion identified. No pneumothorax apparent. CARDIOVASCULAR: The cardiac silhouette is mildly enlarged. OSSEOUS STRUCTURES: No significant abnormalities. VISUALIZED UPPER ABDOMEN: Normal. OTHER FINDINGS: None. IMPRESSION: New heterogeneous opacities at the central and lower portion of right lung lower lobe. Differential consideration includes pneumonia or central right lower lobe mass lesion. If clinically warranted further assessment by CT may be obtained.
[2017-02-11] MEDS ORDERED: Azithromycin 500 MG in Sodium Chloride 0.9% 250 ML IVPB STA (11:29)
[2017-02-11] MEDS ORDERED: Azithromycin 500 MG IV IVPB ONE (11:38)
[2017-02-11 12:07] LABS: VENOUS BLOOD GAS BASE EXCESS 2.3 mmol/L (0.0-2.0); VENOUS BLOOD GAS PCO2 54 mmHg (40-60); VENOUS BLOOD PH 7.34 (7.32-7.43)
[2017-02-11] MEDS ORDERED: Sodium Chloride 0.9% 1,000 ML IV STA (12:15)
[2017-02-11 12:18] LABS: ALB/GLOB RATIO 1.5 (1.0-2.1); ALKALINE PHOSPHATASE 90 U/L (38-126); ALT/SGPT 28 U/L (9-52); AST/SGOT 19 U/L (14-36); BILIRUBIN,TOTAL 0.9 mg/dl (0.2-1.3); BLOOD UREA NITROGEN 19 mg/dl (7-17); CALCIUM 9.7 mg/dL (8.4-10.2); CARBON DIOXIDE 26 mmol/L (22-30); CHLORIDE 106 mmol/L (98-107); GFR AFRICAN-AMERICAN > 60; GLUCOSE,RANDOM 98 mg/dL (65-105); POTASSIUM 3.5 MMOL/L (3.6-5.0); SODIUM 150 mmol/l (132-148); TOTAL PROTEIN 6.8 G/DL (6.3-8.2)
[2017-02-11 12:28] LABS: BASO # 0.1 K/uL (0.0-0.2); BASO % 1.2 % (0.0-2.0); EOS # 0.2 K/uL (0.0-0.7); EOS % 1.9 % (0.0-4.0); HEMATOCRIT 37.4 % (34.0-47.0); LYMPH # 2.2 K/uL (1.0-4.3); LYMPH % 26.6 % (20.0-40.0); MEAN CELL VOLUME 88.7 fl (81.0-99.0); MEAN CORPUSCULAR HEMOGLOBIN 28.2 pg (27.0-31.0); MEAN CORPUSCULAR HGB CONC 31.8 g/dL (33.0-37.0); MEAN PLATELET VOLUME 8.7 fl (7.2-11.7); MONO # 0.4 K/uL (0.0-0.8); MONO % 4.3 % (0.0-10.0); NEUT # 5.4 K/uL (1.8-7.0); NRBC % 0.2 % (0.0-0.0); RED CELL DISTRIBUTION WIDTH 14.3 % (11.5-14.5); WHITE BLOOD COUNT 8.2 K/uL (4.8-10.8)
[2017-02-11] MEDS ORDERED: cefTRIAXone (Rocephin) 1 gm Inj ONE (13:35)
[2017-02-11] MEDS ORDERED: Magnesium Hydroxide Susp 30 ml UD PO STA ×2 (20:10→20:59)
[2017-02-11] MEDS: Influenza Vaccine 18yr & older 0.5 ML/45 MCG SYR IM ONE ×2 (22:20→22:24)
[2017-02-11] MEDS ORDERED: Pneumococcal 23-Valent Vaccine IM ONE (22:30)
[2017-02-12] MEDS: Albuterol-Ipratrop 3 mg / 0.5 (3 ml) UD INH SCH ×4 (01:00→19:48)
[2017-02-12 06:59] LABS: HEMATOCRIT 35.3 % (34.0-47.0); MEAN CELL VOLUME 87.3 fl (81.0-99.0); MEAN CORPUSCULAR HEMOGLOBIN 28.9 pg (27.0-31.0); MEAN CORPUSCULAR HGB CONC 33.1 g/dL (33.0-37.0); WHITE BLOOD COUNT 6.6 K/uL (4.8-10.8)
[2017-02-12 07:46] LABS: BLOOD UREA NITROGEN 20 mg/dl (7-17); CALCIUM 9.4 mg/dL (8.4-10.2); CHLORIDE 106 mmol/L (98-107); GFR AFRICAN-AMERICAN > 60; GLUCOSE,RANDOM 130 mg/dL (65-105); POTASSIUM 3.8 MMOL/L (3.6-5.0); SODIUM 144 mmol/l (132-148)
[2017-02-12 08:02] LABS: CARBON DIOXIDE 24 mmol/L (22-30)
[2017-02-12] MEDS: methylPREDNISolone 40 MG in Sodium Chloride 0.9% 50 ML IVPB SCH (08:30)
[2017-02-12] MEDS: Enoxaparin 40 mg Syringe SC SCH (08:31)
[2017-02-12] MEDS: Pantoprazole 40 mg EC Tab PO SCH (08:31)
[2017-02-12] MEDS: Pravastatin Sodium 20 MG TAB PO SCH (08:32)
[2017-02-12] MEDS ORDERED: MELOXICAM 15 MG PO SCH (09:00)
[2017-02-12] MEDS ORDERED: Naproxen 500 MG TAB PO SCH (09:00)
[2017-02-12] MEDS: Azithromycin 500 MG in Sodium Chloride 0.9% 250 ML IVPB SCH (09:02)
[2017-02-12] MEDS: Lactobacillus Acidophilus 500 MU Cap PO SCH ×2 (09:06→17:18)
--- NOTE | 2017-02-12 09:35 | CARD ---
APPROVED REPORT EKG Measurement Heart [id number] MD [id number] <Conclusion> Normal sinus rhythm Normal ECG
--- NOTE | 2017-02-12 16:08 | CT ---
PROCEDURE: CT Chest without contrast HISTORY: pneumonia COMPARISON: None. TECHNIQUE: Contiguous axial images were obtained through the chest without intravenous contrast enhancement. Sagittal and coronal reconstructions were performed. Radiation dose (DLP): 621.2 mGy-cm. This CT exam was performed using one or more of the following dose reduction techniques: Automated exposure control, adjustment of the mA and/or kV according to patient size, and/or use of iterative reconstruction technique. FINDINGS: LUNGS: No evidence of focal infiltrate or consolidation in the lungs to suggest pneumonia. Small opacity at the left lung base likely atelectasis. Mild to moderate pulmonary vascular congestion is noted. MEDIASTINUM: Unremarkable thoracic aorta. No aneurysm. Heart is mildly to moderately enlarged. In pulmonary artery is mildly enlarged. [id number] pulmonary vascular congestion. No lymphadenopathy. PLEURA: No pleural fluid. No pneumothorax. BONES: No fracture. No destructive lesion. UPPER ABDOMEN: Grossly unremarkable. OTHER FINDINGS: None. IMPRESSION: No radiographic evidence of pneumonia. [id number] pulmonary vascular congestion and cardiomegaly.
[2017-02-13] MEDS: Albuterol-Ipratrop 3 mg / 0.5 (3 ml) UD INH SCH ×4 (01:00→19:26)
--- NOTE | 2017-02-13 04:35 | HP ---
HISTORY OF PRESENT ILLNESS: Ms. Yoo is a 76-year-old female who was admitted via the emergency room because of 2 days onset of right upper back pain associated with shortness of breath. She denies cough or fever. She was seen in the emergency room and had a chest x-ray that was compatible with pneumonia. She was therefore, admitted for workup and therapy. PAST MEDICAL HISTORY: She has a past medical history of chronic obstructive pulmonary disease, gastritis, hypertension, coronary artery disease, status post stent placement and hypertension with arthritis. FAMILY HISTORY: Noncontributory. SOCIAL HISTORY: Does not smoke or drink. Does not use drugs and lives alone. REVIEW OF SYSTEMS: Remarkable for occasional shortness of breath, abdominal pain and back pain. PHYSICAL EXAMINATION: GENERAL: The patient is alert, oriented, appears to be in some discomfort because of back pain. VITAL SIGNS: Remarkable for blood pressure of 136/65, pulse of 83, respiratory rate 18. She is afebrile. O2 sat is 95% on nasal cannula oxygen. SKIN: Shows fair turgor. HEENT: Pupils are equal and reactive to light and accommodation. Mouth shows fair hygiene. NECK: JVP flat. LUNGS: Fair aeration with some basal rales. HEART: S1 and S2. BREASTS: Normal. ABDOMEN: Soft and nontender. No organomegaly. EXTREMITIES: Show 1+ pitting pedal edema bilaterally. CENTRAL NERVOUS SYSTEM: Grossly intact. GENITAL AND RECTAL: Deferred. LABORATORY DATA: Remarkable for WBC of 6.6, hemoglobin 11.7, platelet count of 292,000. Sodium 150, potassium 3.5, BUN 19, creatinine 0.7. Venous blood gas shows a pH of 7.34, pO2 of 22, pCO2 of 54, O2 saturation 38.2. Chest x-ray is remarkable for new heterogenous opacities of the central and lower portion of the right lower lobe, deferential consideration including pneumonia, central right lower lobe mass lesion. CT scan recommended. IMPRESSION: Pneumonia right lung, exacerbation of chronic obstructive pulmonary disease, history of coronary artery disease, history of hypertension, history of arthritis, history of gastritis. PLAN: Intravenous antibiotics, oxygen, aerosolized bronchodilators, intravenous steroids. We will obtain sputum for Gram stain and culture. We will obtain CT scan of the chest to rule out a pulmonary pathology. Further therapy will depend on findings. Christofer Camacho MD [facility] # [id number]
--- NOTE | 2017-02-13 08:34 | CP.PCM.CON ---
History of Present Illness - History of Present Illness History of Present Illness: patient seen/examined. full consutl to follow. CAD s.p PCI, HTN hypercholesterolemia who presents with back pain. has noted lwoer extremity edema. will assess patient's previous cardiac testing. Past Patient History - Past Medical History & Family History Past Medical History?: Yes - Past Social History Smoking Status: Never Smoked - CARDIAC Hx Cardiac Disorders: Yes Hx Hypertension: Yes - PULMONARY Hx Respiratory Disorders: Yes Hx Asthma: Yes Hx Bronchitis: Yes Hx Chronic Obstructive Pulmonary Disease (COPD): Yes Hx Emphysema: Yes - NEUROLOGICAL Hx Neurological Disorder: No - HEENT Hx HEENT Problems: Yes Hx Glaucoma: Yes - RENAL Hx Chronic Kidney Disease: No - ENDOCRINE/METABOLIC Hx Endocrine Disorders: No Hx Diabetes Insipidus: No - HEMATOLOGICAL/ONCOLOGICAL Hx Blood Disorders: No Hx AIDS: No Hx Human Immunodeficiency Virus (HIV): No - INTEGUMENTARY Hx Dermatological Problems: No - MUSCULOSKELETAL/RHEUMATOLOGICAL Hx Musculoskeletal Disorders: Yes Hx Back Pain: Yes Hx Falls: No - GASTROINTESTINAL Hx Gastrointestinal Disorders: Yes Hx Gastritis: Yes - GENITOURINARY/GYNECOLOGICAL Hx Genitourinary Disorders: No - PSYCHIATRIC Hx Psychophysiologic Disorder: Yes Hx Anxiety: Yes Hx Substance Use: No - SURGICAL HISTORY Hx Surgeries: Yes Hx Coronary Stent: Yes (x3) - ANESTHESIA Hx Anesthesia: Yes Hx Anesthesia Reactions: No Hx Malignant Hyperthermia: No Meds Allergies/Adverse Reactions: Allergies Allergy/AdvReac Type Severity Reaction Status Date / Time ciprofloxacin AdvReac ITCHING Verified 10/11/16 17:21 - Medications Medications: Current Medications Albuterol/Ipratropium (Duoneb 3 Mg/0.5 Mg (3 Ml) Ud) 3 ml INH RQ6 [facility] Last Admin: 02/13/17 07:25 Dose: 3 ml Alprazolam (Xanax) 0.5 mg PO DAILY [facility] Last Admin: 02/12/17 09:02 Dose: 0.5 mg Amlodipine Besylate (Norvasc) 10 mg PO DAILY [facility] Last Admin: 02/12/17 08:33 Dose: 10 mg Aspirin (Ecotrin) 81 mg PO DAILY [facility] Last Admin: 02/12/17 09:06 Dose: 81 mg Clopidogrel Bisulfate (Plavix) 75 mg PO DAILY [facility] Last Admin: 02/12/17 08:32 Dose: 75 mg Enoxaparin Sodium (Lovenox) 40 mg SC DAILY [facility] PRN Reason: Protocol Last Admin: 02/12/17 08:31 Dose: 40 mg Escitalopram Oxalate (Lexapro) 10 mg PO DAILY [facility] Last Admin: 02/12/17 08:31 Dose: 10 mg Ceftriaxone Sodium 1 gm/ (Sodium Chloride) 100 mls @ 100 mls/hr IVPB DAILY [facility] Last Admin: 02/12/17 08:28 Dose: 100 mls/hr Methylprednisolone 40 mg/ (Sodium Chloride) 50 mls @ 100 mls/hr IVPB DAILY [facility] Last Admin: 02/12/17 08:30 Dose: 100 mls/hr Azithromycin 500 mg/ Sodium (Chloride) 250 mls @ 250 mls/hr IVPB DAILY [facility] Last Admin: 02/12/17 09:02 Dose: 250 mls/hr Ketorolac Tromethamine (Toradol) 30 mg IVP Q8 PRN PRN Reason: Pain, Mild (1-3) Last Admin: 02/13/17 00:33 Dose: 30 mg Lactobacillus Acidophilus (Bacid Acidophilus) 1 cap PO BID [facility] Last Admin: 02/12/17 17:18 Dose: 1 cap Losartan Potassium (Cozaar) 25 mg PO DAILY [facility] Last Admin: 02/12/17 08:35 Dose: 25 mg Pantoprazole Sodium (Protonix Ec Tab) 40 mg PO DAILY [facility] Last Admin: 02/12/17 08:31 Dose: 40 mg Pravastatin Sodium (Pravachol) 20 mg PO DAILY [facility] Last Admin: 02/12/17 08:32 Dose: 20 mg Results - Vital Signs Recent Vital Signs: Last Vital Signs Temp 98.5 F 02/13/17 08:12 Pulse 72 02/13/17 08:12 Resp 18 02/13/17 08:12 BP 168/94 H 02/13/17 08:12 Pulse Ox 96 02/13/17 08:12 - Labs Result Diagrams: 02/12/17 07:00 02/12/17 05:30
--- NOTE | 2017-02-13 08:34 | CP.PCM.CON ---
Past Patient History - Past Medical History & Family History Past Medical History?: Yes - Past Social History Smoking Status: Never Smoked - CARDIAC Hx Cardiac Disorders: Yes Hx Hypertension: Yes - PULMONARY Hx Respiratory Disorders: Yes Hx Asthma: Yes Hx Bronchitis: Yes Hx Chronic Obstructive Pulmonary Disease (COPD): Yes Hx Emphysema: Yes - NEUROLOGICAL Hx Neurological Disorder: No - HEENT Hx HEENT Problems: Yes Hx Glaucoma: Yes - RENAL Hx Chronic Kidney Disease: No - ENDOCRINE/METABOLIC Hx Endocrine Disorders: No Hx Diabetes Insipidus: No - HEMATOLOGICAL/ONCOLOGICAL Hx Blood Disorders: No Hx AIDS: No Hx Human Immunodeficiency Virus (HIV): No - INTEGUMENTARY Hx Dermatological Problems: No - MUSCULOSKELETAL/RHEUMATOLOGICAL Hx Musculoskeletal Disorders: Yes Hx Back Pain: Yes Hx Falls: No - GASTROINTESTINAL Hx Gastrointestinal Disorders: Yes Hx Gastritis: Yes - GENITOURINARY/GYNECOLOGICAL Hx Genitourinary Disorders: No - PSYCHIATRIC Hx Psychophysiologic Disorder: Yes Hx Anxiety: Yes Hx Substance Use: No - SURGICAL HISTORY Hx Surgeries: Yes Hx Coronary Stent: Yes (x3) - ANESTHESIA Hx Anesthesia: Yes Hx Anesthesia Reactions: No Hx Malignant Hyperthermia: No Meds Allergies/Adverse Reactions: Allergies Allergy/AdvReac Type Severity Reaction Status Date / Time ciprofloxacin AdvReac ITCHING Verified 10/11/16 17:21 - Medications Medications: Current Medications Albuterol/Ipratropium (Duoneb 3 Mg/0.5 Mg (3 Ml) Ud) 3 ml INH RQ6 [facility] Last Admin: 02/13/17 07:25 Dose: 3 ml Alprazolam (Xanax) 0.5 mg PO DAILY [facility] Last Admin: 02/12/17 09:02 Dose: 0.5 mg Amlodipine Besylate (Norvasc) 10 mg PO DAILY [facility] Last Admin: 02/12/17 08:33 Dose: 10 mg Aspirin (Ecotrin) 81 mg PO DAILY [facility] Last Admin: 02/12/17 09:06 Dose: 81 mg Clopidogrel Bisulfate (Plavix) 75 mg PO DAILY [facility] Last Admin: 02/12/17 08:32 Dose: 75 mg Enoxaparin Sodium (Lovenox) 40 mg SC DAILY [facility] PRN Reason: Protocol Last Admin: 02/12/17 08:31 Dose: 40 mg Escitalopram Oxalate (Lexapro) 10 mg PO DAILY [facility] Last Admin: 02/12/17 08:31 Dose: 10 mg Ceftriaxone Sodium 1 gm/ (Sodium Chloride) 100 mls @ 100 mls/hr IVPB DAILY [facility] Last Admin: 02/12/17 08:28 Dose: 100 mls/hr Methylprednisolone 40 mg/ (Sodium Chloride) 50 mls @ 100 mls/hr IVPB DAILY [facility] Last Admin: 02/12/17 08:30 Dose: 100 mls/hr Azithromycin 500 mg/ Sodium (Chloride) 250 mls @ 250 mls/hr IVPB DAILY [facility] Last Admin: 02/12/17 09:02 Dose: 250 mls/hr Ketorolac Tromethamine (Toradol) 30 mg IVP Q8 PRN PRN Reason: Pain, Mild (1-3) Last Admin: 02/13/17 00:33 Dose: 30 mg Lactobacillus Acidophilus (Bacid Acidophilus) 1 cap PO BID [facility] Last Admin: 02/12/17 17:18 Dose: 1 cap Losartan Potassium (Cozaar) 25 mg PO DAILY [facility] Last Admin: 02/12/17 08:35 Dose: 25 mg Pantoprazole Sodium (Protonix Ec Tab) 40 mg PO DAILY [facility] Last Admin: 02/12/17 08:31 Dose: 40 mg Pravastatin Sodium (Pravachol) 20 mg PO DAILY [facility] Last Admin: 02/12/17 08:32 Dose: 20 mg Results - Vital Signs Recent Vital Signs: Last Vital Signs Temp 98.5 F 02/13/17 08:12 Pulse 72 02/13/17 08:12 Resp 18 02/13/17 08:12 BP 168/94 H 02/13/17 08:12 Pulse Ox 96 02/13/17 08:12 - Labs Result Diagrams: 02/12/17 07:00 02/12/17 05:30
[2017-02-13] MEDS ORDERED: guaiFENesin DM 200 mg-20 mg/10 ml UD PO PRN (08:36)
--- NOTE | 2017-02-13 08:40 | CP.PCM.PN ---
Subjective - Date & Time of Evaluation Date of Evaluation: 02/13/17 Time of Evaluation: 08:41 - Subjective Subjective: CONTINUES TO C/O CHEST AND BACK PAINS WITH SHORTNESS OF BRETH C/O SORETHROAT AND DRY COUGH Objective - Vital Signs/Intake and Output Vital Signs (last 24 hours): Temp Pulse Resp BP Pulse Ox 98.5 F 72 18 168/94 H 96 02/13/17 08:12 02/13/17 08:12 02/13/17 08:12 02/13/17 08:12 02/13/17 08:12 - Medications Medications: Current Medications Albuterol/Ipratropium (Duoneb 3 Mg/0.5 Mg (3 Ml) Ud) 3 ml INH RQ6 [facility] Last Admin: 02/13/17 07:25 Dose: 3 ml Alprazolam (Xanax) 0.5 mg PO DAILY [facility] Last Admin: 02/12/17 09:02 Dose: 0.5 mg Amlodipine Besylate (Norvasc) 10 mg PO DAILY [facility] Last Admin: 02/12/17 08:33 Dose: 10 mg Aspirin (Ecotrin) 81 mg PO DAILY [facility] Last Admin: 02/12/17 09:06 Dose: 81 mg Clopidogrel Bisulfate (Plavix) 75 mg PO DAILY [facility] Last Admin: 02/12/17 08:32 Dose: 75 mg Enoxaparin Sodium (Lovenox) 40 mg SC DAILY [facility] PRN Reason: Protocol Last Admin: 02/12/17 08:31 Dose: 40 mg Escitalopram Oxalate (Lexapro) 10 mg PO DAILY [facility] Last Admin: 02/12/17 08:31 Dose: 10 mg Guaifenesin/Dextromethorphan (Robitussin Dm) 10 ml PO Q6 PRN PRN Reason: Cough Ceftriaxone Sodium 1 gm/ (Sodium Chloride) 100 mls @ 100 mls/hr IVPB DAILY [facility] Last Admin: 02/12/17 08:28 Dose: 100 mls/hr Methylprednisolone 40 mg/ (Sodium Chloride) 50 mls @ 100 mls/hr IVPB DAILY [facility] Last Admin: 02/12/17 08:30 Dose: 100 mls/hr Azithromycin 500 mg/ Sodium (Chloride) 250 mls @ 250 mls/hr IVPB DAILY [facility] Last Admin: 02/12/17 09:02 Dose: 250 mls/hr Ketorolac Tromethamine (Toradol) 30 mg IVP Q8 PRN PRN Reason: Pain, Mild (1-3) Last Admin: 02/13/17 00:33 Dose: 30 mg Lactobacillus Acidophilus (Bacid Acidophilus) 1 cap PO BID [facility] Last Admin: 02/12/17 17:18 Dose: 1 cap Losartan Potassium (Cozaar) 25 mg PO DAILY [facility] Last Admin: 02/12/17 08:35 Dose: 25 mg Pantoprazole Sodium (Protonix Ec Tab) 40 mg PO DAILY [facility] Last Admin: 02/12/17 08:31 Dose: 40 mg Pravastatin Sodium (Pravachol) 20 mg PO DAILY [facility] Last Admin: 02/12/17 08:32 Dose: 20 mg - Labs Labs: 02/12/17 07:00 02/12/17 05:30 - Constitutional Appears: Chronically Ill - Head Exam Head Exam: ATRAUMATIC, NORMAL INSPECTION, NORMOCEPHALIC - Eye Exam Eye Exam: EOMI, Normal appearance, PERRL Pupil Exam: NORMAL ACCOMODATION, PERRL - ENT Exam ENT Exam: Mucous Membranes Moist, Normal Exam - Neck Exam Neck Exam: Full ROM, Normal Inspection. absent: Lymphadenopathy - Respiratory Exam Respiratory Exam: Decreased Breath Sounds, Prolonged Expiratory Phase, Rales, NORMAL BREATHING PATTERN - Cardiovascular Exam Cardiovascular Exam: REGULAR RHYTHM, +S1, +S2. absent: Murmur - GI/Abdominal Exam GI & Abdominal Exam: Soft, Normal Bowel Sounds. absent: Tenderness - Rectal Exam Rectal Exam: NORMAL INSPECTION - Extremities Exam Extremities Exam: Full ROM, Normal Capillary Refill, Normal Inspection, Pedal Edema. absent: Joint Swelling - Back Exam Back Exam: NORMAL INSPECTION - Neurological Exam Neurological Exam: Abnormal Gait, Alert, Awake, CN II-XII Intact, Oriented x3 - Psychiatric Exam Psychiatric exam: Normal Affect, Normal Mood - Skin Skin Exam: Dry, Intact, Normal Color, Warm Assessment and Plan - Assessment and Plan (Free Text) Assessment: ACUTE EXAC OF COPD BACK PAINS ?PNEUMONIA--NOT EVIDENT ON CT SCAN OF CHEST PULMONARY CONGESTION PEDAL EDEMA ASHD HTN Plan: CONTINUE PRESENT RX CARDIOLOGY CONSULT PHYSICAL RX EVAL
[2017-02-13] MEDS: Lactobacillus Acidophilus 500 MU Cap PO SCH ×2 (10:02→17:59)
[2017-02-13] MEDS: Enoxaparin 40 mg Syringe SC SCH (10:03)
[2017-02-13] MEDS: Pravastatin Sodium 20 MG TAB PO SCH (10:04)
[2017-02-13] MEDS: Pantoprazole 40 mg EC Tab PO SCH (10:05)
[2017-02-13] MEDS: methylPREDNISolone 40 MG in Sodium Chloride 0.9% 50 ML IVPB SCH (10:05)
[2017-02-13] MEDS: Azithromycin 500 MG in Sodium Chloride 0.9% 250 ML IVPB SCH (10:06)
[2017-02-14] MEDS: Albuterol-Ipratrop 3 mg / 0.5 (3 ml) UD INH SCH ×3 (01:18→13:23)
[2017-02-14] MEDS: Pravastatin Sodium 20 MG TAB PO SCH (09:01)
[2017-02-14] MEDS: Enoxaparin 40 mg Syringe SC SCH (09:01)
[2017-02-14] MEDS: Pantoprazole 40 mg EC Tab PO SCH (09:02)
--- NOTE | 2017-02-14 09:06 | CP.PCM.PN ---
Subjective - Date & Time of Evaluation Date of Evaluation: 02/14/17 Time of Evaluation: 09:08 - Subjective Subjective: CONTINUES TO HAVE BODYACHES SORETHROAT WITH INABILITY TO EXPECTORATE SPUTUM C/O SHORTNESS OF BREATH AND CHILLS POOR IV ACCESS Objective - Vital Signs/Intake and Output Vital Signs (last 24 hours): Temp Pulse Resp BP Pulse Ox 98.7 F 77 20 142/73 95 02/14/17 08:42 02/14/17 09:01 02/14/17 08:42 02/14/17 09:01 02/14/17 08:42 - Medications Medications: Current Medications Albuterol/Ipratropium (Duoneb 3 Mg/0.5 Mg (3 Ml) Ud) 3 ml INH RQ6 [facility] Last Admin: 02/14/17 08:24 Dose: 3 ml Alprazolam (Xanax) 0.5 mg PO DAILY [facility] Last Admin: 02/14/17 09:03 Dose: 0.5 mg Amlodipine Besylate (Norvasc) 10 mg PO DAILY [facility] Last Admin: 02/14/17 09:01 Dose: 10 mg Aspirin (Ecotrin) 81 mg PO DAILY [facility] Last Admin: 02/14/17 09:00 Dose: 81 mg Clopidogrel Bisulfate (Plavix) 75 mg PO DAILY [facility] Last Admin: 02/14/17 09:01 Dose: 75 mg Enoxaparin Sodium (Lovenox) 40 mg SC DAILY [facility] PRN Reason: Protocol Last Admin: 02/14/17 09:01 Dose: 40 mg Escitalopram Oxalate (Lexapro) 10 mg PO DAILY [facility] Last Admin: 02/14/17 09:00 Dose: 10 mg Guaifenesin/Dextromethorphan (Robitussin Dm) 10 ml PO Q6 PRN PRN Reason: Cough Ceftriaxone Sodium 1 gm/ (Sodium Chloride) 100 mls @ 100 mls/hr IVPB DAILY [facility] Last Admin: 02/13/17 10:06 Dose: 100 mls/hr Methylprednisolone 40 mg/ (Sodium Chloride) 50 mls @ 100 mls/hr IVPB DAILY [facility] Last Admin: 02/13/17 10:05 Dose: 100 mls/hr Azithromycin 500 mg/ Sodium (Chloride) 250 mls @ 250 mls/hr IVPB DAILY [facility] Last Admin: 02/13/17 10:06 Dose: 250 mls/hr Ketorolac Tromethamine (Toradol) 30 mg IVP Q8 PRN PRN Reason: Pain, Mild (1-3) Last Admin: 02/14/17 00:00 Dose: 30 mg Lactobacillus Acidophilus (Bacid Acidophilus) 1 cap PO BID [facility] Last Admin: 02/13/17 17:59 Dose: 1 cap Losartan Potassium (Cozaar) 25 mg PO DAILY [facility] Last Admin: 02/14/17 09:00 Dose: 25 mg Pantoprazole Sodium (Protonix Ec Tab) 40 mg PO DAILY [facility] Last Admin: 02/14/17 09:02 Dose: 40 mg Pravastatin Sodium (Pravachol) 20 mg PO DAILY [facility] Last Admin: 02/14/17 09:01 Dose: 20 mg - Labs Labs: 02/12/17 07:00 02/12/17 05:30 - Constitutional Appears: In Acute Distress - Head Exam Head Exam: ATRAUMATIC, NORMAL INSPECTION, NORMOCEPHALIC - Eye Exam Eye Exam: EOMI, Normal appearance, PERRL Pupil Exam: NORMAL ACCOMODATION, PERRL - ENT Exam ENT Exam: Mucous Membranes Moist, Normal Exam - Neck Exam Neck Exam: Full ROM, Normal Inspection. absent: Lymphadenopathy - Respiratory Exam Respiratory Exam: Decreased Breath Sounds, Prolonged Expiratory Phase, Rales, Respiratory Distress, NORMAL BREATHING PATTERN - Cardiovascular Exam Cardiovascular Exam: REGULAR RHYTHM, +S1, +S2. absent: Murmur - GI/Abdominal Exam GI & Abdominal Exam: Soft, Normal Bowel Sounds. absent: Tenderness - Rectal Exam Rectal Exam: NORMAL INSPECTION - Extremities Exam Extremities Exam: Full ROM, Normal Capillary Refill, Normal Inspection, Pedal Edema. absent: Joint Swelling - Back Exam Back Exam: NORMAL INSPECTION, tenderness - Neurological Exam Neurological Exam: Alert, Awake, CN II-XII Intact, Normal Gait, Oriented x3 - Psychiatric Exam Psychiatric exam: Normal Affect, Normal Mood - Skin Skin Exam: Dry, Intact, Normal Color, Warm Assessment and Plan - Assessment and Plan (Free Text) Assessment: ACUTE EXAC OF COPD ACUTE BRONCHITIS PNEUMONIA RULED OUT ASHD HTN ARTHRITIS Plan: PICC LINE ACCESS FOR ANTIBIOTIC RX ADD MUCOMYST TO RX TRANSFER TO TCU ONCE A BED IS AVAILABLE
[2017-02-14] MEDS: Lactobacillus Acidophilus 500 MU Cap PO SCH ×2 (09:19→16:30)
[2017-02-14] MEDS ORDERED: Lidocaine 1% Inj (20ml) ONE (12:44)
--- NOTE | 2017-02-14 13:23 | PCM.SURG1 ---
Surgeon's Initial Post Op Note - Surgeon's Notes Surgeon: Raghavendra Shaw MD [employer] Helper: NONE Type of Anesthesia: Local Pre-Operative Diagnosis: Poor venous access Operative Findings: US showed a patent right basilic vein Post-Operative Diagnosis: Poor venous access Operation Performed: Single lumen picc placement right basilic vein. Specimen/Specimens Removed: None Estimated Blood Loss: EBL {In ML}: 2 Blood Products Given: N/A Drains Used: No Drains Post-Op Condition: Good Date of Surgery/Procedure: 02/14/17 Time of Surgery/Procedure: 13:15
[2017-02-14] MEDS: methylPREDNISolone 40 MG in Sodium Chloride 0.9% 50 ML IVPB SCH (14:16)
--- NOTE | 2017-02-14 16:41 | VASCULAR ---
PROCEDURE: Date of procedure: 02/14/2017 Procedure: 1. Placement of a right arm PICC with ultrasound and fluoroscopic guidance, CPT 31386 2. PICC tip confirmation with spot radiograph and is in the superior vena cava Medications: 1 percent lidocaine Total Fluoro time: 19.7 seconds Radiation: 2.45 MGy EBL: 2 cc HISTORY: Infection requiring long-term IV antibiotics TECHNIQUE: Following informed consent and procedure time-out, the patient was placed supine on the interventional table and the right arm prepped and draped in the usual sterile fashion. Ultrasound showed a patent and compressible right basilic vein. After the skin was anesthetized with lidocaine, the basilic vein was accessed with micro micropuncture technique using ultrasound guidance. A guidewire was then advanced under fluoroscopic guidance into the superior vena cava. An image documenting ultrasound guidance for vascular access was permanently saved. The length of the single-lumen 4 [place] PICC was trimmed to 37 centimeters and advanced through a peel-away sheath. The PICC was position with tip of PICC confirm a spot radiograph the superior vena cava. The PICC was secured to the patient's skin. The PICC was flushed. A biopatch and sterile dressing was applied. IMPRESSION: Placement of a single-lumen 4 [place] PICC trimmed to 37 centimeters via right basilic vein. The tip of the PICC is confirmed with spot radiograph and is in the superior vena cava.
[2017-02-14] MEDS: Azithromycin 500 MG in Sodium Chloride 0.9% 250 ML IVPB SCH (16:51)
--- NOTE | 2017-02-14 19:54 | CP.PCM.PN ---
Subjective - Date & Time of Evaluation Date of Evaluation: 02/14/17 Time of Evaluation: 07:50 - Subjective Subjective: patient has bodyache no chest pain Objective - Vital Signs/Intake and Output Vital Signs (last 24 hours): Temp Pulse Resp BP Pulse Ox 97.8 F 96 H 20 138/78 93 L 02/14/17 16:58 02/14/17 16:58 02/14/17 16:58 02/14/17 16:58 02/14/17 16:58 - Medications Medications: Current Medications Acetylcysteine (Acetylcysteine 20%) 2 ml INH RBID ELLA Albuterol/Ipratropium (Duoneb 3 Mg/0.5 Mg (3 Ml) Ud) 3 ml INH RQ6 [facility] Last Admin: 02/14/17 13:23 Dose: Not Given Alprazolam (Xanax) 0.5 mg PO DAILY [facility] Last Admin: 02/14/17 09:03 Dose: 0.5 mg Amlodipine Besylate (Norvasc) 10 mg PO DAILY [facility] Last Admin: 02/14/17 09:01 Dose: 10 mg Aspirin (Ecotrin) 81 mg PO DAILY [facility] Last Admin: 02/14/17 09:00 Dose: 81 mg Clopidogrel Bisulfate (Plavix) 75 mg PO DAILY [facility] Last Admin: 02/14/17 09:01 Dose: 75 mg Docusate Sodium (Colace) 100 mg PO BID [facility] Last Admin: 02/14/17 16:31 Dose: 100 mg Enoxaparin Sodium (Lovenox) 40 mg SC DAILY [facility] PRN Reason: Protocol Last Admin: 02/14/17 09:01 Dose: 40 mg Escitalopram Oxalate (Lexapro) 10 mg PO DAILY [facility] Last Admin: 02/14/17 09:00 Dose: 10 mg Guaifenesin/Dextromethorphan (Robitussin Dm) 10 ml PO Q6 PRN PRN Reason: Cough Ceftriaxone Sodium 1 gm/ (Sodium Chloride) 100 mls @ 100 mls/hr IVPB DAILY [facility] Last Admin: 02/14/17 14:16 Dose: 100 mls/hr Methylprednisolone 40 mg/ (Sodium Chloride) 50 mls @ 100 mls/hr IVPB DAILY [facility] Last Admin: 02/14/17 14:16 Dose: 100 mls/hr Azithromycin 500 mg/ Sodium (Chloride) 250 mls @ 250 mls/hr IVPB DAILY [facility] Last Admin: 02/14/17 16:51 Dose: 250 mls/hr Ketorolac Tromethamine (Toradol) 30 mg IVP Q8 PRN PRN Reason: Pain, Mild (1-3) Last Admin: 02/14/17 00:00 Dose: 30 mg Lactobacillus Acidophilus (Bacid Acidophilus) 1 cap PO BID [facility] Last Admin: 02/14/17 16:30 Dose: 1 cap Losartan Potassium (Cozaar) 25 mg PO DAILY [facility] Last Admin: 02/14/17 09:00 Dose: 25 mg Pantoprazole Sodium (Protonix Ec Tab) 40 mg PO DAILY [facility] Last Admin: 02/14/17 09:02 Dose: 40 mg Pravastatin Sodium (Pravachol) 20 mg PO DAILY [facility] Last Admin: 02/14/17 09:01 Dose: 20 mg - Labs Labs: 02/12/17 07:00 02/12/17 05:30 PT 12.1 Seconds (9.8-13.1) 02/14/17 18:30 INR 1.2 (0.9-1.2) 02/14/17 18:30 - Constitutional Appears: Non-toxic - Head Exam Head Exam: NORMAL INSPECTION - Eye Exam Eye Exam: Normal appearance - ENT Exam ENT Exam: Mucous Membranes Moist - Neck Exam Neck Exam: Full ROM - Respiratory Exam Respiratory Exam: NORMAL BREATHING PATTERN - Cardiovascular Exam Cardiovascular Exam: REGULAR RHYTHM - GI/Abdominal Exam GI & Abdominal Exam: Normal Bowel Sounds - Rectal Exam Rectal Exam: Deferred - Extremities Exam Extremities Exam: absent: Pedal Edema - Back Exam Back Exam: NORMAL INSPECTION - Neurological Exam Neurological Exam: Alert - Psychiatric Exam Psychiatric exam: Normal Affect - Skin Skin Exam: Normal Color Assessment and Plan (1) Coronary artery disease Assessment & Plan: stable cardiac status. no angina. Continue current medical therapy Status: Acute (2) HTN (hypertension) Assessment & Plan: blood pressure control Status: Acute
[2017-02-14] MEDS ORDERED: Acetylcysteine 20% Inhal Soln (4ml) INH SCH (20:00)
[2017-02-15] MEDS: Albuterol-Ipratrop 3 mg / 0.5 (3 ml) UD INH SCH ×3 (01:00→13:35)
[2017-02-15 08:31] VITALS: RESP 20
[2017-02-15] MEDS: Lactobacillus Acidophilus 500 MU Cap PO SCH ×2 (08:35→16:30)
[2017-02-15] MEDS: methylPREDNISolone 40 MG in Sodium Chloride 0.9% 50 ML IVPB SCH (08:36)
[2017-02-15] MEDS: Pantoprazole 40 mg EC Tab PO SCH (08:37)
[2017-02-15] MEDS: Enoxaparin 40 mg Syringe SC SCH (08:37)
[2017-02-15] MEDS: Pravastatin Sodium 20 MG TAB PO SCH (08:38)
--- NOTE | 2017-02-15 10:09 | CP.PCM.PN ---
Subjective - Date & Time of Evaluation Date of Evaluation: 02/15/17 Time of Evaluation: 10:10 - Subjective Subjective: C/O BACK AND SHOULDER PAINS STILL COUGHING BUT UNABLE TO EXPECTORATE SPUTUM SOB PERSISTS ANXIOUS Objective - Vital Signs/Intake and Output Vital Signs (last 24 hours): Temp Pulse Resp BP Pulse Ox 98.4 F 99 H 20 153/88 H 94 L 02/15/17 08:31 02/15/17 08:31 02/15/17 08:31 02/15/17 08:31 02/15/17 08:31 - Medications Medications: Current Medications Acetylcysteine (Acetylcysteine 20%) 2 ml INH RBID [facility] Last Admin: 02/15/17 07:41 Dose: 2 ml Albuterol/Ipratropium (Duoneb 3 Mg/0.5 Mg (3 Ml) Ud) 3 ml INH RQ6 [facility] Last Admin: 02/15/17 07:41 Dose: 3 ml Alprazolam (Xanax) 0.5 mg PO DAILY [facility] Last Admin: 02/15/17 08:35 Dose: 0.5 mg Amlodipine Besylate (Norvasc) 10 mg PO DAILY [facility] Last Admin: 02/15/17 08:38 Dose: 10 mg Aspirin (Ecotrin) 81 mg PO DAILY [facility] Last Admin: 02/15/17 08:38 Dose: 81 mg Clopidogrel Bisulfate (Plavix) 75 mg PO DAILY [facility] Last Admin: 02/15/17 08:37 Dose: 75 mg Docusate Sodium (Colace) 100 mg PO BID [facility] Last Admin: 02/15/17 08:37 Dose: 100 mg Enoxaparin Sodium (Lovenox) 40 mg SC DAILY [facility] PRN Reason: Protocol Last Admin: 02/15/17 08:37 Dose: 40 mg Escitalopram Oxalate (Lexapro) 10 mg PO DAILY [facility] Last Admin: 02/15/17 08:38 Dose: 10 mg Guaifenesin/Dextromethorphan (Robitussin Dm) 10 ml PO Q6 PRN PRN Reason: Cough Ceftriaxone Sodium 1 gm/ (Sodium Chloride) 100 mls @ 100 mls/hr IVPB DAILY [facility] Last Admin: 02/15/17 08:36 Dose: 100 mls/hr Methylprednisolone 40 mg/ (Sodium Chloride) 50 mls @ 100 mls/hr IVPB DAILY [facility] Last Admin: 02/15/17 08:36 Dose: 100 mls/hr Azithromycin 500 mg/ Sodium (Chloride) 250 mls @ 250 mls/hr IVPB DAILY [facility] Last Admin: 02/14/17 16:51 Dose: 250 mls/hr Ketorolac Tromethamine (Toradol) 30 mg IVP Q8 PRN PRN Reason: Pain, Mild (1-3) Last Admin: 02/14/17 00:00 Dose: 30 mg Lactobacillus Acidophilus (Bacid Acidophilus) 1 cap PO BID [facility] Last Admin: 02/15/17 08:35 Dose: 1 cap Losartan Potassium (Cozaar) 25 mg PO DAILY [facility] Last Admin: 02/15/17 08:38 Dose: 25 mg Pantoprazole Sodium (Protonix Ec Tab) 40 mg PO DAILY [facility] Last Admin: 02/15/17 08:37 Dose: 40 mg Pravastatin Sodium (Pravachol) 20 mg PO DAILY [facility] Last Admin: 02/15/17 08:38 Dose: 20 mg - Labs Labs: 02/12/17 07:00 02/12/17 05:30 PT 12.1 Seconds (9.8-13.1) 02/14/17 18:30 INR 1.2 (0.9-1.2) 02/14/17 18:30 - Constitutional Appears: Chronically Ill - Head Exam Head Exam: ATRAUMATIC, NORMAL INSPECTION, NORMOCEPHALIC - Eye Exam Eye Exam: EOMI, Normal appearance, PERRL Pupil Exam: NORMAL ACCOMODATION, PERRL - ENT Exam ENT Exam: Mucous Membranes Moist, Normal Exam - Neck Exam Neck Exam: Full ROM, Normal Inspection. absent: Lymphadenopathy - Respiratory Exam Respiratory Exam: Decreased Breath Sounds, Prolonged Expiratory Phase, Rales, Wheezes, NORMAL BREATHING PATTERN - Cardiovascular Exam Cardiovascular Exam: REGULAR RHYTHM, +S1, +S2. absent: Murmur - GI/Abdominal Exam GI & Abdominal Exam: Soft, Normal Bowel Sounds. absent: Tenderness - Rectal Exam Rectal Exam: NORMAL INSPECTION - Extremities Exam Extremities Exam: Full ROM, Normal Capillary Refill, Normal Inspection, Pedal Edema. absent: Joint Swelling Additional comments: PEDAL EDEMA LESS - Back Exam Back Exam: NORMAL INSPECTION, tenderness - Neurological Exam Neurological Exam: Abnormal Gait, Alert, Awake, CN II-XII Intact, Oriented x3 - Psychiatric Exam Psychiatric exam: Normal Affect, Normal Mood - Skin Skin Exam: Dry, Intact, Normal Color, Warm Assessment and Plan - Assessment and Plan (Free Text) Assessment: ACUTE EXAC OF COPD URI ARTHRITIS HTN ASHD ANXIETY Plan: CONTINUE SAME RX TRANSFER TO TCU ONCE A BED IS AVAILABLE
[2017-02-15] MEDS: Azithromycin 500 MG in Sodium Chloride 0.9% 250 ML IVPB SCH (11:25)
[2017-02-15 17:06] VITALS: BP 132/78; PULSE 108; TEMP 99; O2SAT 93
--- NOTE | 2017-02-16 08:56 | CP.PCM.DIS ---
Provider - Provider Date of Admission: 02/12/17 09:35 Attending physician: Christofer Camacho MD Time Spent in preparation of Discharge (in minutes): 30 Diagnosis - Discharge Diagnosis (1) Upper respiratory infection Status: Acute (2) Arthritis Status: Acute (3) Anxiety and depression Status: Acute (4) COPD exacerbation Status: Acute (5) Coronary artery disease Status: Acute (6) Dyspnea Status: Acute (7) HTN (hypertension) Status: Acute Hospital Course - Lab Results Lab Results: Micro Results 02/11/17 10:20 Blood-Venous Blood Culture - Preliminary NO GROWTH AFTER 4 DAYS Most Recent Lab Values WBC 6.6 K/uL (4.8-10.8) 02/12/17 07:00 RBC 4.05 Mil/uL (3.80-5.20) 02/12/17 07:00 Hgb 11.7 g/dL (12.0-16.0) L 02/12/17 07:00 Hct 35.3 % (34.0-47.0) 02/12/17 07:00 MCV 87.3 fl (81.0-99.0) 02/12/17 07:00 MCH 28.9 pg (27.0-31.0) 02/12/17 07:00 MCHC 33.1 g/dL (33.0-37.0) 02/12/17 07:00 RDW 14.0 % (11.5-14.5) 02/12/17 07:00 Plt Count 292 K/uL (130-400) 02/12/17 07:00 MPV 8.7 fl (7.2-11.7) 02/11/17 12:00 Neut % (Auto) 66.0 % (50.0-75.0) 02/11/17 12:00 Lymph % (Auto) 26.6 % (20.0-40.0) 02/11/17 12:00 [place] % (Auto) 4.3 % (0.0-10.0) 02/11/17 12:00 Eos % (Auto) 1.9 % (0.0-4.0) 02/11/17 12:00 Baso % (Auto) 1.2 % (0.0-2.0) 02/11/17 12:00 Neut # 5.4 K/uL (1.8-7.0) 02/11/17 12:00 Lymph # 2.2 K/uL (1.0-4.3) 02/11/17 12:00 [place] # 0.4 K/uL (0.0-0.8) 02/11/17 12:00 Eos # 0.2 K/uL (0.0-0.7) 02/11/17 12:00 Baso # 0.1 K/uL (0.0-0.2) 02/11/17 12:00 PT 12.1 Seconds (9.8-13.1) 02/14/17 18:30 INR 1.2 (0.9-1.2) 02/14/17 18:30 pO2 22 mm/Hg (30-55) L 02/11/17 11:26 VBG pH 7.34 (7.32-7.43) 02/11/17 11:26 VBG pCO2 54 mmHg (40-60) 02/11/17 11:26 VBG HCO3 25.2 mmol/L 02/11/17 11:26 VBG Total CO2 30.8 mmol/L (22-28) H 02/11/17 11:26 VBG O2 Sat (Calc) 38.2 % (40-65) L 02/11/17 11:26 VBG Base Excess 2.3 mmol/L (0.0-2.0) H 02/11/17 11:26 VBG Potassium 3.5 mmol/L (3.6-5.2) L 02/11/17 11:26 Sodium 142.0 mmol/L (132-148) 02/11/17 11:26 Chloride 108.0 mmol/L (98-107) H 02/11/17 11:26 Glucose 101 mg/dL (65-105) 02/11/17 11:26 Lactate 2.2 mmol/L (0.7-2.1) H 02/11/17 11:26 FiO2 21.0 % 02/11/17 11:26 Sodium 144 mmol/l (132-148) 02/12/17 05:30 Potassium 3.8 MMOL/L (3.6-5.0) 02/12/17 05:30 Chloride 106 mmol/L (98-107) 02/12/17 05:30 Carbon Dioxide 24 mmol/L (22-30) 02/12/17 05:30 Anion Gap 18 (10-20) 02/12/17 05:30 BUN 20 mg/dl (7-17) H 02/12/17 05:30 Creatinine 0.7 mg/dL (0.7-1.2) 02/12/17 05:30 Est GFR ( Amer) > 60 02/12/17 05:30 Est GFR (Non-Af Amer) > 60 02/12/17 05:30 Random Glucose 130 mg/dL (65-105) H 02/12/17 05:30 Calcium 9.4 mg/dL (8.4-10.2) 02/12/17 05:30 Total Bilirubin 0.9 mg/dl (0.2-1.3) 02/11/17 12:00 AST 19 U/L (14-36) 02/11/17 12:00 ALT 28 U/L (9-52) 02/11/17 12:00 Alkaline Phosphatase 90 U/L (38-126) 02/11/17 12:00 Total Protein 6.8 G/DL (6.3-8.2) 02/11/17 12:00 Albumin 4.1 g/dL (3.5-5.0) 02/11/17 12:00 Globulin 2.7 gm/dL (2.2-3.9) 02/11/17 12:00 Albumin/Globulin Ratio 1.5 (1.0-2.1) 02/11/17 12:00 Venous Blood Potassium 3.5 mmol/L (3.6-5.2) L 02/11/17 11:26 - Hospital Course Hospital Course: still dyspneic and coughing Discharge Exam - Head Exam Head Exam: ATRAUMATIC, NORMAL INSPECTION, NORMOCEPHALIC - Eye Exam Eye Exam: EOMI, Normal appearance, PERRL Pupil Exam: NORMAL ACCOMODATION, PERRL - Respiratory Exam Respiratory Exam: Decreased Breath Sounds, Prolonged Expiratory Phase, Rales, Wheezes - GI/Abdominal Exam GI & Abdominal Exam: Normal Bowel Sounds - Rectal Exam Rectal Exam: NORMAL INSPECTION - Neurological Exam Neurological exam: Alert, CN II-XII Intact, Normal Gait, Oriented x3, Reflexes Normal - Psychiatric Exam Psychiatric exam: Normal Affect, Normal Mood - Skin Skin Exam: Dry, Intact, Normal Color, Warm Discharge Plan - Discharge Medications Prescriptions: cefTRIAXone 1 gm [Rocephin 1 gram IVPB] 1 gm IVPB DAILY #5 bag methylPREDNISolone [Solu-MEDROL] 40 mg IV DAILY #5 ml Azithromycin 500MG/NS 250ml [Zithromax 500mg in NS] 500 mg IVPB DAILY #5 bag - Follow Up Plan Condition: FAIR Disposition: REHAB FACILITY/REHAB UNIT Patient education suggested?: Yes Additional Instructions: transfer to transitional care
== END 2017-02-15 17:15 | DRG 192 ==
LOC: H.ER 09:36 → H.ERHOLD 12:46 → H.TEL 18:31 → OBSVTOIN 02-12 09:35 → H.MEDSURG1 02-14 16:45
PROVIDERS: ADMIT Internal Medicine Pulmonary Disease; ATTEND Internal Medicine Pulmonary Disease
PROC: 3E0234Z Introduction of Serum, Toxoid and Vaccine into Muscle, Percutaneous Approach (ICD-10-PCS; 2017-02-11)
PROC: 02HV33Z Insertion of Infusion Device into Superior Vena Cava, Percutaneous Approach (ICD-10-PCS; principal; 2017-02-14)
PROC: B518ZZA Fluoroscopy of Superior Vena Cava, Guidance (ICD-10-PCS; 2017-02-14)
PROC: 3E04329 Introduction of Other Anti-infective into Central Vein, Percutaneous Approach (ICD-10-PCS; 2017-02-14)
DX: J44.0 Chronic obstructive pulmonary disease with (acute) lower respiratory infection (principal); J20.9 Acute bronchitis, unspecified; J44.1 Chronic obstructive pulmonary disease with (acute) exacerbation; I10 Essential (primary) hypertension; I25.10 Atherosclerotic heart disease of native coronary artery without angina pectoris; K29.70 Gastritis, unspecified, without bleeding; E78.00 Pure hypercholesterolemia, unspecified; M19.90 Unspecified osteoarthritis, unspecified site; F41.8 Other specified anxiety disorders; H40.9 Unspecified glaucoma; Z23 Encounter for immunization; Z95.5 Presence of coronary angioplasty implant and graft; Z88.1 Allergy status to other antibiotic agents; Z79.02 Long term (current) use of antithrombotics/antiplatelets; Z79.82 Long term (current) use of aspirin

== ENCOUNTER 2017-02-15 12:35 | Inpatient (IN) | payer OTHER ==
[2017-02-15 17:07] VITALS: BMI 31.8
[2017-02-15] MEDS: Acetylcysteine 20% Inhal Soln (4ml) INH SCH (20:34)
[2017-02-15] MEDS: guaiFENesin DM 200 mg-20 mg/10 ml UD PO PRN (21:54)
[2017-02-16] MEDS: Acetylcysteine 20% Inhal Soln (4ml) INH SCH ×2 (08:27→19:05)
[2017-02-16] MEDS ORDERED: Sodium Chloride 3% for Inhalation 4 ML VIAL.NEB IH PRN (08:48)
[2017-02-16] MEDS: Pantoprazole 40 mg EC Tab PO SCH (08:51)
[2017-02-16] MEDS: Pravastatin Sodium 20 MG TAB PO SCH (08:51)
[2017-02-16] MEDS ORDERED: Azithromycin 500 MG in Sodium Chloride 0.9% 250 ML IVPB SCH ×2 (09:00→17:00)
[2017-02-16] MEDS ORDERED: MethylPREDNISolone 40 mg Vial IV SCH (09:00)
[2017-02-16] MEDS ORDERED: Enoxaparin 40 mg Syringe SC SCH (09:00)
[2017-02-16] MEDS ORDERED: cefTRIAXone IV 1 gm in Dextros 50 ML BAG IVPB SCH (09:00)
[2017-02-16] MEDS: Lactobacillus Acidophilus 500 MU Cap PO SCH ×2 (10:10→17:23)
[2017-02-16] MEDS: methylPREDNISolone 40 MG in Sodium Chloride 0.9% 50 ML IVPB SCH (10:11)
[2017-02-16] MEDS: Albuterol-Ipratrop 3 mg / 0.5 (3 ml) UD INH SCH ×2 (13:27→19:05)
--- NOTE | 2017-02-16 14:33 | HP ---
HISTORY OF PRESENT ILLNESS: Ms. Yoo is a 76-year-old female, who was admitted to the medical floor because of back pains and acute exacerbation of chronic obstructive pulmonary disease with upper respiratory tract infection. She was transferred to the transitional care unit for IV antibiotics and aggressive physical therapy. She still continues to complain of back pains and generalized malaise with occasional palpitations. PAST MEDICAL HISTORY: Remarkable for chronic obstructive pulmonary disease, coronary artery disease, hypertension, gastritis, arthritis, anxiety disorder. FAMILY HISTORY: Noncontributory. SOCIAL HISTORY: The patient never smoked, but ex- used to smoke. She does not use drugs or alcohol and lives alone. REVIEW OF SYSTEMS: Remarkable for shortness of breath, exercise intolerance, and occasional joint pains. PHYSICAL EXAMINATION GENERAL: The patient is alert and oriented, anxious. VITAL SIGNS: Blood pressure 155/98 with a pulse of 93, respiratory rate 20, she is afebrile, O2 sat 95% on room air. SKIN: Shows fair turgor. HEENT: Pupils are equal and reactive to light and accommodation. JVP flat. Mouth shows fair hygiene with mucous engorgement of pharynx. HEART: S1, S2. BREASTS: Normal. LUNGS: Bilateral rales with wheezing and dullness at the bases. ABDOMEN: Soft, nontender. No organomegaly. EXTREMITIES: Shows no edema or cyanosis. CENTRAL NERVOUS SYSTEM: Exam is grossly intact. LABORATORY DATA: Pending. IMPRESSION: Acute exacerbation of chronic obstructive pulmonary disease, upper respiratory tract infection, palpitations, history of coronary artery disease, history of anxiety, history of arthritis, and history of gastritis. PLAN: Intravenous steroids, aerosolized bronchodilators, oxygen, with pain physiatry evaluation for back pains and arthritis. Aggressive physical therapy and occupational therapy already ordered. Aerosolized bronchodilators and IV antibiotics. Further therapy will depend on findings. Christofer Camacho MD
--- NOTE | 2017-02-16 18:33 | CP.PCM.CON ---
History of Present Illness - History of Present Illness History of Present Illness: Dr Lazaro PMR consultation on Judy Yoo, born 1940 who had been admitted with right back pain and SOB. + pneumonia. + Picc line and IV ABX pain is in the right shoulder/scapular region and low back region. Not really influenced by inspiration. No significant coughing related pain either. Mechanical in nature and gets worse with right shoulder motion + crepitus ( severe) and supine to sit also leads to pain in lumbar region I would recommend considering a right shoulder injection. She will think about it. I would also recommend a lumbar CT as well Past Patient History - Past Medical History & Family History Past Medical History?: Yes - Past Social History Smoking Status: Never Smoked - CARDIAC Hx Cardiac Disorders: Yes Hx Hypertension: Yes - PULMONARY Hx Chronic Obstructive Pulmonary Disease (COPD): Yes - NEUROLOGICAL Hx Neurological Disorder: No - HEENT Hx HEENT Problems: Yes Hx Glaucoma: Yes - RENAL Hx Chronic Kidney Disease: No - ENDOCRINE/METABOLIC Hx Endocrine Disorders: No Hx Diabetes Insipidus: No - HEMATOLOGICAL/ONCOLOGICAL Hx Blood Disorders: No Hx AIDS: No Hx Human Immunodeficiency Virus (HIV): No - INTEGUMENTARY Hx Dermatological Problems: No - MUSCULOSKELETAL/RHEUMATOLOGICAL Hx Falls: No - GASTROINTESTINAL Hx Gastrointestinal Disorders: Yes Hx Gastritis: Yes - GENITOURINARY/GYNECOLOGICAL Hx Genitourinary Disorders: No - PSYCHIATRIC Hx Substance Use: No - SURGICAL HISTORY Hx Surgeries: Yes Hx Coronary Stent: Yes (x3) - ANESTHESIA Hx Anesthesia: Yes Hx Anesthesia Reactions: No Hx Malignant Hyperthermia: No Meds Allergies/Adverse Reactions: Allergies Allergy/AdvReac Type Severity Reaction Status Date / Time ciprofloxacin AdvReac ITCHING Verified 02/15/17 17:06 - Medications Medications: Current Medications Acetaminophen (Tylenol 325mg Tab) 650 mg PO Q4 PRN PRN Reason: Pain, Mild (1-3) Last Admin: 02/15/17 21:54 Dose: 650 mg Acetylcysteine (Acetylcysteine 20%) 2 ml INH RBID [facility] Last Admin: 02/16/17 08:27 Dose: Not Given Albuterol/Ipratropium (Duoneb 3 Mg/0.5 Mg (3 Ml) Ud) 3 ml INH RQ6 [facility] Last Admin: 02/16/17 13:27 Dose: 3 ml Alprazolam (Xanax) 0.5 mg PO DAILY@2100 [facility] Amlodipine Besylate (Norvasc) 10 mg PO DAILY [facility] Last Admin: 02/16/17 08:50 Dose: 10 mg Aspirin (Ecotrin) 81 mg PO DAILY [facility] Last Admin: 02/16/17 08:51 Dose: 81 mg Azithromycin (Zithromax) 500 mg PO DAILY@1700 [facility] Last Admin: 02/16/17 17:23 Dose: 500 mg Clopidogrel Bisulfate (Plavix) 75 mg PO DAILY [facility] Last Admin: 02/16/17 08:51 Dose: 75 mg Docusate Sodium (Colace) 100 mg PO BID [facility] Last Admin: 02/16/17 17:26 Dose: 100 mg Escitalopram Oxalate (Lexapro) 10 mg PO DAILY [facility] Last Admin: 02/16/17 08:50 Dose: 10 mg Guaifenesin/Dextromethorphan (Robitussin Dm) 10 ml PO Q6 PRN PRN Reason: Cough Last Admin: 02/15/17 21:54 Dose: 10 ml Methylprednisolone 40 mg/ (Sodium Chloride) 50.64 mls @ 50.64 mls/hr IVPB DAILY [facility] Last Admin: 02/16/17 10:11 Dose: 50.64 mls/hr Ceftriaxone Sodium 1 gm/ (Sodium Chloride) 100 mls @ 100 mls/hr IVPB DAILY@ 1700 [facility] Last Admin: 02/16/17 17:24 Dose: Not Given Lactobacillus Acidophilus (Bacid Acidophilus) 1 cap PO BID [facility] Last Admin: 02/16/17 17:23 Dose: 1 cap Losartan Potassium (Cozaar) 25 mg PO DAILY [facility] Last Admin: 02/16/17 08:51 Dose: 25 mg Naproxen (Naprosyn Tab) 375 mg PO BID PRN PRN Reason: Pain, Mild (1-3) Pantoprazole Sodium (Protonix Ec Tab) 40 mg PO DAILY [facility] Last Admin: 02/16/17 08:51 Dose: 40 mg Pravastatin Sodium (Pravachol) 20 mg PO DAILY [facility] Last Admin: 02/16/17 08:51 Dose: 20 mg Results - Vital Signs Recent Vital Signs: Last Vital Signs Temp 97.6 F 02/16/17 16:07 Pulse 90 02/16/17 16:07 Resp 20 02/16/17 16:07 BP 130/88 02/16/17 16:07 Pulse Ox 92 L 02/16/17 16:07
[2017-02-16] MEDS: guaiFENesin DM 200 mg-20 mg/10 ml UD PO PRN (22:04)
[2017-02-17] MEDS: Albuterol-Ipratrop 3 mg / 0.5 (3 ml) UD INH SCH ×4 (01:00→19:15)
[2017-02-17 06:00] LABS: HEMATOCRIT 40.3 % (34.0-47.0); MEAN CELL VOLUME 86.8 fl (81.0-99.0); MEAN CORPUSCULAR HEMOGLOBIN 28.7 pg (27.0-31.0); RED CELL DISTRIBUTION WIDTH 14.2 % (11.5-14.5); WHITE BLOOD COUNT 10.1 K/uL (4.8-10.8)
[2017-02-17 06:13] LABS: ALB/GLOB RATIO 1.5 (1.0-2.1); ALKALINE PHOSPHATASE 78 U/L (38-126); ALT/SGPT 38 U/L (9-52); AST/SGOT 18 U/L (14-36); BILIRUBIN,TOTAL 0.7 mg/dl (0.2-1.3); BLOOD UREA NITROGEN 26 mg/dl (7-17); CALCIUM 9.4 mg/dL (8.4-10.2); CARBON DIOXIDE 29 mmol/L (22-30); CHLORIDE 99 mmol/L (98-107); GFR AFRICAN-AMERICAN > 60; GLUCOSE,RANDOM 92 mg/dL (65-105); POTASSIUM 3.6 MMOL/L (3.6-5.0); SODIUM 142 mmol/l (132-148); TOTAL PROTEIN 6.1 G/DL (6.3-8.2)
[2017-02-17 06:43] LABS: THYROID STIMULATING HORMONE 2.46 mIU/ML (0.46-4.68)
[2017-02-17] MEDS: Acetylcysteine 20% Inhal Soln (4ml) INH SCH ×2 (07:33→19:15)
[2017-02-17] MEDS: Lactobacillus Acidophilus 500 MU Cap PO SCH ×2 (09:12→16:53)
[2017-02-17] MEDS: Pantoprazole 40 mg EC Tab PO SCH (09:13)
[2017-02-17] MEDS: Pravastatin Sodium 20 MG TAB PO SCH (09:13)
[2017-02-17] MEDS: methylPREDNISolone 40 MG in Sodium Chloride 0.9% 50 ML IVPB SCH ×2 (09:14→16:52)
--- NOTE | 2017-02-17 10:45 | CP.PCM.PN ---
Subjective - Date & Time of Evaluation Date of Evaluation: 02/17/17 Time of Evaluation: 10:46 - Subjective Subjective: C/O BILATERAL SHOULDER PAINS[R>L] COUGH STILL PRESENT NO CHEST PAINS SOB IMPROVED Objective - Vital Signs/Intake and Output Vital Signs (last 24 hours): Temp Pulse Resp BP Pulse Ox 98.1 F 87 20 151/80 H 98 02/17/17 08:08 02/17/17 10:02 02/17/17 08:08 02/17/17 10:02 02/17/17 10:02 - Medications Medications: Current Medications Acetaminophen (Tylenol 325mg Tab) 650 mg PO Q4 PRN PRN Reason: Pain, Mild (1-3) Last Admin: 02/15/17 21:54 Dose: 650 mg Acetylcysteine (Acetylcysteine 20%) 2 ml INH RBID [facility] Last Admin: 02/17/17 07:33 Dose: 2 ml Albuterol/Ipratropium (Duoneb 3 Mg/0.5 Mg (3 Ml) Ud) 3 ml INH RQ6 [facility] Last Admin: 02/17/17 07:33 Dose: 3 ml Alprazolam (Xanax) 0.5 mg PO DAILY@2100 [facility] Last Admin: 02/16/17 22:00 Dose: 0.5 mg Amlodipine Besylate (Norvasc) 10 mg PO DAILY [facility] Last Admin: 02/17/17 09:13 Dose: 10 mg Aspirin (Ecotrin) 81 mg PO DAILY [facility] Last Admin: 02/17/17 09:13 Dose: 81 mg Azithromycin (Zithromax) 500 mg PO DAILY@1700 [facility] Last Admin: 02/16/17 17:23 Dose: 500 mg Clopidogrel Bisulfate (Plavix) 75 mg PO DAILY [facility] Last Admin: 02/17/17 09:13 Dose: 75 mg Docusate Sodium (Colace) 100 mg PO BID [facility] Last Admin: 02/17/17 09:12 Dose: 100 mg Escitalopram Oxalate (Lexapro) 10 mg PO DAILY [facility] Last Admin: 02/17/17 09:12 Dose: 10 mg Guaifenesin/Dextromethorphan (Robitussin Dm) 10 ml PO Q6 PRN PRN Reason: Cough Last Admin: 02/16/17 22:04 Dose: 10 ml Ceftriaxone Sodium 1 gm/ (Sodium Chloride) 100 mls @ 100 mls/hr IVPB DAILY@ 1700 [facility] Last Admin: 02/16/17 17:24 Dose: Not Given Methylprednisolone 40 mg/ (Sodium Chloride) 50.64 mls @ 50.64 mls/hr IVPB DAILY @1700 [facility] Lactobacillus Acidophilus (Bacid Acidophilus) 1 cap PO BID [facility] Last Admin: 02/17/17 09:12 Dose: 1 cap Losartan Potassium (Cozaar) 25 mg PO DAILY [facility] Last Admin: 02/17/17 09:13 Dose: 25 mg Naproxen (Naprosyn Tab) 375 mg PO BID PRN PRN Reason: Pain, Mild (1-3) Last Admin: 02/17/17 06:33 Dose: 375 mg Pantoprazole Sodium (Protonix Ec Tab) 40 mg PO DAILY [facility] Last Admin: 02/17/17 09:13 Dose: 40 mg Pravastatin Sodium (Pravachol) 20 mg PO DAILY [facility] Last Admin: 02/17/17 09:13 Dose: 20 mg - Labs Labs: 02/17/17 05:15 02/17/17 05:15 - Constitutional Appears: Chronically Ill - Head Exam Head Exam: ATRAUMATIC, NORMAL INSPECTION, NORMOCEPHALIC - Eye Exam Eye Exam: EOMI, Normal appearance, PERRL Pupil Exam: NORMAL ACCOMODATION, PERRL - ENT Exam ENT Exam: Mucous Membranes Moist, Normal Exam - Neck Exam Neck Exam: Full ROM, Normal Inspection. absent: Lymphadenopathy - Respiratory Exam Respiratory Exam: Decreased Breath Sounds, Prolonged Expiratory Phase, Rales, NORMAL BREATHING PATTERN - Cardiovascular Exam Cardiovascular Exam: REGULAR RHYTHM, +S1, +S2. absent: Murmur - GI/Abdominal Exam GI & Abdominal Exam: Soft, Normal Bowel Sounds. absent: Tenderness - Rectal Exam Rectal Exam: NORMAL INSPECTION - Extremities Exam Extremities Exam: Full ROM, Normal Capillary Refill, Normal Inspection, Tenderness. absent: Joint Swelling, Pedal Edema - Back Exam Back Exam: NORMAL INSPECTION - Neurological Exam Neurological Exam: Abnormal Gait, Alert, Awake, CN II-XII Intact, Oriented x3 - Psychiatric Exam Psychiatric exam: Normal Affect, Normal Mood - Skin Skin Exam: Dry, Intact, Normal Color, Warm Assessment and Plan - Assessment and Plan (Free Text) Assessment: COPD EXAC ARTHRITIS ASHD HTN URI Plan: PHYSIATRY EVAL APPRECIATED ANALGESICS FOR PAIN CONTINUE IV ANTIBIOTICS AND BRONCHODILATORS
[2017-02-17] MEDS: guaiFENesin DM 200 mg-20 mg/10 ml UD PO PRN (21:56)
[2017-02-18] MEDS: Albuterol-Ipratrop 3 mg / 0.5 (3 ml) UD INH SCH ×4 (00:59→19:29)
[2017-02-18] MEDS: Acetylcysteine 20% Inhal Soln (4ml) INH SCH (07:52)
[2017-02-18] MEDS: Pravastatin Sodium 20 MG TAB PO SCH (09:04)
[2017-02-18] MEDS: Lactobacillus Acidophilus 500 MU Cap PO SCH ×2 (09:07→16:20)
[2017-02-18] MEDS: Pantoprazole 40 mg EC Tab PO SCH (09:08)
--- NOTE | 2017-02-18 09:42 | CP.PCM.PN ---
Objective - Vital Signs/Intake and Output Vital Signs (last 24 hours): Temp Pulse Resp BP Pulse Ox 98.1 F 97 H 20 140/80 99 02/18/17 08:24 02/18/17 09:04 02/18/17 08:24 02/18/17 09:04 02/18/17 08:24 - Medications Medications: Current Medications Acetaminophen (Tylenol 325mg Tab) 650 mg PO Q4 PRN PRN Reason: Pain, Mild (1-3) Last Admin: 02/18/17 09:07 Dose: 650 mg Acetylcysteine (Acetylcysteine 20%) 2 ml INH RBID [facility] Last Admin: 02/18/17 07:52 Dose: 2 ml Albuterol/Ipratropium (Duoneb 3 Mg/0.5 Mg (3 Ml) Ud) 3 ml INH RQ6 [facility] Last Admin: 02/18/17 07:52 Dose: 3 ml Alprazolam (Xanax) 0.5 mg PO DAILY@2100 [facility] Last Admin: 02/17/17 21:56 Dose: 0.5 mg Amlodipine Besylate (Norvasc) 10 mg PO DAILY [facility] Last Admin: 02/18/17 09:04 Dose: 10 mg Aspirin (Ecotrin) 81 mg PO DAILY [facility] Last Admin: 02/18/17 09:04 Dose: 81 mg Azithromycin (Zithromax) 500 mg PO DAILY@1700 [facility] Last Admin: 02/17/17 17:18 Dose: 500 mg Clopidogrel Bisulfate (Plavix) 75 mg PO DAILY [facility] Last Admin: 02/18/17 09:04 Dose: 75 mg Docusate Sodium (Colace) 100 mg PO BID [facility] Last Admin: 02/18/17 09:02 Dose: 100 mg Escitalopram Oxalate (Lexapro) 10 mg PO DAILY [facility] Last Admin: 02/18/17 09:04 Dose: 10 mg Guaifenesin/Dextromethorphan (Robitussin Dm) 10 ml PO Q6 PRN PRN Reason: Cough Last Admin: 02/17/17 21:56 Dose: 10 ml Ceftriaxone Sodium 1 gm/ (Sodium Chloride) 100 mls @ 100 mls/hr IVPB DAILY@ 1700 [facility] Last Admin: 02/17/17 16:51 Dose: 100 mls/hr Methylprednisolone 40 mg/ (Sodium Chloride) 50.64 mls @ 50.64 mls/hr IVPB DAILY @1700 [facility] Last Admin: 02/17/17 16:52 Dose: 50.64 mls/hr Lactobacillus Acidophilus (Bacid Acidophilus) 1 cap PO BID [facility] Last Admin: 02/18/17 09:07 Dose: 1 cap Losartan Potassium (Cozaar) 25 mg PO DAILY [facility] Last Admin: 02/18/17 09:04 Dose: 25 mg Naproxen (Naprosyn Tab) 375 mg PO BID PRN PRN Reason: Pain, Mild (1-3) Last Admin: 02/17/17 06:33 Dose: 375 mg Pantoprazole Sodium (Protonix Ec Tab) 40 mg PO DAILY [facility] Last Admin: 02/18/17 09:08 Dose: 40 mg Pravastatin Sodium (Pravachol) 20 mg PO DAILY [facility] Last Admin: 02/18/17 09:04 Dose: 20 mg - Labs Labs: 02/17/17 05:15 02/17/17 05:15
--- NOTE | 2017-02-18 09:47 | CP.PCM.PN ---
Subjective - Date & Time of Evaluation Date of Evaluation: 02/18/17 Time of Evaluation: 09:48 - Subjective Subjective: co/o constipation and rectal pain c/o shoulder pain dry cough persists wants to go to subacute care in the longterm prior to going home Objective - Vital Signs/Intake and Output Vital Signs (last 24 hours): Temp Pulse Resp BP Pulse Ox 98.1 F 97 H 20 140/80 99 02/18/17 08:24 02/18/17 09:04 02/18/17 08:24 02/18/17 09:04 02/18/17 08:24 - Medications Medications: Current Medications Acetaminophen (Tylenol 325mg Tab) 650 mg PO Q4 PRN PRN Reason: Pain, Mild (1-3) Last Admin: 02/18/17 09:07 Dose: 650 mg Albuterol/Ipratropium (Duoneb 3 Mg/0.5 Mg (3 Ml) Ud) 3 ml INH RQ6 [facility] Last Admin: 02/18/17 07:52 Dose: 3 ml Alprazolam (Xanax) 0.5 mg PO DAILY@2100 [facility] Last Admin: 02/17/17 21:56 Dose: 0.5 mg Amlodipine Besylate (Norvasc) 10 mg PO DAILY [facility] Last Admin: 02/18/17 09:04 Dose: 10 mg Aspirin (Ecotrin) 81 mg PO DAILY [facility] Last Admin: 02/18/17 09:04 Dose: 81 mg Azithromycin (Zithromax) 500 mg PO DAILY@1700 [facility] Last Admin: 02/17/17 17:18 Dose: 500 mg Clopidogrel Bisulfate (Plavix) 75 mg PO DAILY [facility] Last Admin: 02/18/17 09:04 Dose: 75 mg Docusate Sodium (Colace) 100 mg PO BID [facility] Last Admin: 02/18/17 09:02 Dose: 100 mg Escitalopram Oxalate (Lexapro) 10 mg PO DAILY [facility] Last Admin: 02/18/17 09:04 Dose: 10 mg Guaifenesin/Dextromethorphan (Robitussin Dm) 10 ml PO Q6 PRN PRN Reason: Cough Last Admin: 02/17/17 21:56 Dose: 10 ml Hydrocortisone (Anusol-Hc) 25 mg WA BID [facility] Ceftriaxone Sodium 1 gm/ (Sodium Chloride) 100 mls @ 100 mls/hr IVPB DAILY@ 1700 [facility] Last Admin: 02/17/17 16:51 Dose: 100 mls/hr Methylprednisolone 40 mg/ (Sodium Chloride) 50.64 mls @ 50.64 mls/hr IVPB DAILY @1700 [facility] Last Admin: 02/17/17 16:52 Dose: 50.64 mls/hr Lactobacillus Acidophilus (Bacid Acidophilus) 1 cap PO BID [facility] Last Admin: 02/18/17 09:07 Dose: 1 cap Lidocaine (Lidoderm) 1 ea TD DAILY [facility] Losartan Potassium (Cozaar) 25 mg PO DAILY [facility] Last Admin: 02/18/17 09:04 Dose: 25 mg Naproxen (Naprosyn Tab) 375 mg PO BID PRN PRN Reason: Pain, Mild (1-3) Last Admin: 02/17/17 06:33 Dose: 375 mg Pantoprazole Sodium (Protonix Ec Tab) 40 mg PO DAILY [facility] Last Admin: 02/18/17 09:08 Dose: 40 mg Pravastatin Sodium (Pravachol) 20 mg PO DAILY [facility] Last Admin: 02/18/17 09:04 Dose: 20 mg - Labs Labs: 02/17/17 05:15 02/17/17 05:15 - Constitutional Appears: Chronically Ill - Head Exam Head Exam: ATRAUMATIC, NORMAL INSPECTION, NORMOCEPHALIC - Eye Exam Eye Exam: EOMI, Normal appearance, PERRL Pupil Exam: NORMAL ACCOMODATION, PERRL - ENT Exam ENT Exam: Mucous Membranes Moist, Normal Exam - Neck Exam Neck Exam: Full ROM, Normal Inspection. absent: Lymphadenopathy - Respiratory Exam Respiratory Exam: Decreased Breath Sounds, Prolonged Expiratory Phase, NORMAL BREATHING PATTERN - Cardiovascular Exam Cardiovascular Exam: REGULAR RHYTHM, +S1, +S2. absent: Murmur - GI/Abdominal Exam GI & Abdominal Exam: Soft, Normal Bowel Sounds. absent: Tenderness - Rectal Exam Rectal Exam: NORMAL INSPECTION - Extremities Exam Extremities Exam: Full ROM, Normal Capillary Refill, Normal Inspection, Tenderness. absent: Joint Swelling, Pedal Edema - Back Exam Back Exam: NORMAL INSPECTION - Neurological Exam Neurological Exam: Abnormal Gait, Alert, Awake, CN II-XII Intact, Oriented x3 - Psychiatric Exam Psychiatric exam: Normal Affect, Normal Mood - Skin Skin Exam: Dry, Intact, Normal Color, Warm Assessment and Plan - Assessment and Plan (Free Text) Assessment: copd exac ashd htn arthropathy uri hx of hemorrhoids Plan: continue rx as ordered will request family welfare social work professor consult for subacute care
--- NOTE | 2017-02-18 10:37 | CP.PCM.CON ---
History of Present Illness - History of Present Illness History of Present Illness: patient is a 76 year old female with a history of CAD s/p PCI LAD HTN, hypercholesterolemia admitted for rehab. The patient was admitted to hospital for diffuse body pain. She had chest pain. Symptoms occurred at rest. There wsa no dyspnea. The patient requires rehab. Review of Systems - Constitutional Constitutional: Fatigue - EENT Eyes: absent: As Per HPI, Blind Spots, Blurred Vision, Change in Vision, Decreased Night Vision, Diplopia, Discharge, Dry Eye, Exophthalmos, Floaters, Irritation, Itchy Eyes, Loss of Peripheral Vision, Pain, Photophobia, Requires Corrective Lenses, Sees Flashes, Spots in Vision, Tunnel Vision, Other Visual Disturbances, Loss of Vision, Other Ears: absent: As Per HPI, Decreased Hearing, Ear Discharge, Ear Pain, Tinnitus, Abnormal Hearing, Disequilibrium, Dizziness, Other Nose/Mouth/Throat: absent: As Per HPI, Epistaxis, Nasal Congestion, Nasal Discharge, Nasal Obstruction, Nasal Trauma, Nose Pain, Post Nasal Drip, Sinus Pain, Sinus Pressure, Bleeding Gums, Change in Voice, Dental Pain, Dry Mouth, Dysphagia, Halitosis, Hoarsness, Lip Swelling, Mouth Lesions, Mouth Pain, Odynophagia, Sore Throat, Throat Swelling, Tongue Swelling, Facial Pain, Neck Pain, Neck Mass, Other - Cardiovascular Cardiovascular: absent: As Per HPI, Acrocyanosis, Chest Pain, Chest Pain at Rest , Chest Pain with Activity, Claudication, Diaphoresis, Dyspnea, Dyspnea on Exertion, Edema, Irregular Heart Rhythm, Pain Radiating to Arm/Neck/Jaw, Leg Edema, Leg Ulcers, Lightheadedness, Orthopnea, Palpitations, Paroxysmal Nocturnal Dyspnea, Pedal Edema, Radiating Pain, Rapid Heart Rate, Slow Heart Rate, Syncope, Other - Respiratory Respiratory: absent: As Per HPI, Cough, Dyspnea, Hemoptysis, Dyspnea on Exertion , Wheezing, Snoring, Stridor, Pain on Inspiration, Chest Congestion, Excessive Mucous Production, Change in Mucous Color, Pain with Coughing, Other - Gastrointestinal Gastrointestinal: absent: As Per HPI, Abdominal Pain, Belching, Bloating, Change in Bowel Habits, Change in Stool Character, Coffee Ground Emesis, Constipation, Cramping, Diarrhea, Dyspepsia, Dysphagia, Early Satiety, Excessive Flatus, Fecal Incontinence, Heartburn, Hematemesis, Hematochezia, Loose Stools, Melena, Nausea, Odynophagia, Temesmus, Vomiting, Other - Genitourinary Genitourinary: absent: As Per HPI, Change in Urinary Stream, Difficulty Urinating, Dysuria, Flank Pain, Hematuria, Pyuria, Nocturia, Urinary Incontinence, Urinary Frequency, Urinary Hesitance, Urinary Urgency, Voiding Freq/Small Amts, Freq UTI, Hx Renal/Bladder Calculi, Hx /Renal Surgery, Bladder Distension, Other - Musculoskeletal Musculoskeletal: As Per HPI, Arthralgias - Integumentary Integumentary: absent: As Per HPI, Acne, Alopecia, Bleeding Lesions, Change in Hair, Change in Nails, Change in Pigmentation, Changing Lesions, Dry Skin, Erythema, Furuncle, Hirsutism, Lesions, New Lesions, Non-Healing Lesions, Photosensitivity, Pruritus, Rash, Skin Pain, Skin Ulcer, Sores, Striae, Swelling , Unusual Bruising, Wounds, Jaundice, Other - Neurological Neurological: absent: As Per HPI, Abnormal Gait, Abnormal Hearing, Abnormal Movements, Abnormal Speech, Behavioral Changes, Burning Sensations, Confusion, Convulsions, Disequilibrium, Dizziness, Numbness, Focal Weakness, Frequent Falls , Headaches, Lack of Coordination, Loss of Vision, Memory Loss, Paresthesias, Radicular Pain, Restless Legs, Sensory Deficit, Syncope, Tingling, Tremor, Vertigo, Weakness, Other Visual Disturbances, Other - Psychiatric Psychiatric: absent: As Per HPI, Abnormal Sleep Pattern, Anhedonia, Anxiety, Auditory Hallucinations, Behavioral Changes, Change in Appetite, Change in Libido, Confusion, Depression, Difficulty Concentrating, Hallucinations, Homicidal Ideation, Hopelessness, Irritability, Memory Loss, Mood Swings, Panic Attacks, Paranoia, Suicidal Ideation, Visual Hallucinations, Tactile Hallucinations, Other - Endocrine Endocrine: absent: As Per HPI, Change in Body Appearance, Change in Libido, Cold Intolorance, Deepening of Voice, Excessive Sweating, Fatigue, Flushing, Heat Intolorance, Increase in Ring/Shoe/Hat Size, Palpitations, Polydipsia, Polyphagia, Polyuria, Other - Hematologic/Lymphatic Hematologic: absent: As Per HPI, Easy Bleeding, Easy Bruising, Lymphadenopathy, Other Past Patient History - Past Medical History & Family History Past Medical History?: Yes - Past Social History Smoking Status: Never Smoked - CARDIAC Hx Cardiac Disorders: Yes Hx Hypertension: Yes - PULMONARY Hx Chronic Obstructive Pulmonary Disease (COPD): Yes - NEUROLOGICAL Hx Neurological Disorder: No - HEENT Hx HEENT Problems: Yes Hx Glaucoma: Yes - RENAL Hx Chronic Kidney Disease: No - ENDOCRINE/METABOLIC Hx Endocrine Disorders: No Hx Diabetes Insipidus: No - HEMATOLOGICAL/ONCOLOGICAL Hx Blood Disorders: No Hx AIDS: No Hx Human Immunodeficiency Virus (HIV): No - INTEGUMENTARY Hx Dermatological Problems: No - MUSCULOSKELETAL/RHEUMATOLOGICAL Hx Falls: No - GASTROINTESTINAL Hx Gastrointestinal Disorders: Yes Hx Gastritis: Yes - GENITOURINARY/GYNECOLOGICAL Hx Genitourinary Disorders: No - PSYCHIATRIC Hx Substance Use: No - SURGICAL HISTORY Hx Surgeries: Yes Hx Coronary Stent: Yes (x3) - ANESTHESIA Hx Anesthesia: Yes Hx Anesthesia Reactions: No Hx Malignant Hyperthermia: No Meds Allergies/Adverse Reactions: Allergies Allergy/AdvReac Type Severity Reaction Status Date / Time ciprofloxacin AdvReac ITCHING Verified 02/15/17 17:06 - Medications Medications: Current Medications Acetaminophen (Tylenol 325mg Tab) 650 mg PO Q4 PRN PRN Reason: Pain, Mild (1-3) Last Admin: 02/18/17 09:07 Dose: 650 mg Albuterol/Ipratropium (Duoneb 3 Mg/0.5 Mg (3 Ml) Ud) 3 ml INH RQ6 [facility] Last Admin: 02/18/17 07:52 Dose: 3 ml Alprazolam (Xanax) 0.5 mg PO DAILY@2100 [facility] Last Admin: 02/17/17 21:56 Dose: 0.5 mg Amlodipine Besylate (Norvasc) 10 mg PO DAILY [facility] Last Admin: 02/18/17 09:04 Dose: 10 mg Aspirin (Ecotrin) 81 mg PO DAILY [facility] Last Admin: 02/18/17 09:04 Dose: 81 mg Azithromycin (Zithromax) 500 mg PO DAILY@1700 [facility] Last Admin: 02/17/17 17:18 Dose: 500 mg Clopidogrel Bisulfate (Plavix) 75 mg PO DAILY [facility] Last Admin: 02/18/17 09:04 Dose: 75 mg Docusate Sodium (Colace) 100 mg PO BID [facility] Last Admin: 02/18/17 09:02 Dose: 100 mg Escitalopram Oxalate (Lexapro) 10 mg PO DAILY [facility] Last Admin: 02/18/17 09:04 Dose: 10 mg Guaifenesin/Dextromethorphan (Robitussin Dm) 10 ml PO Q6 PRN PRN Reason: Cough Last Admin: 02/17/17 21:56 Dose: 10 ml Hydrocortisone (Anusol-Hc) 25 mg ME BID [facility] Ceftriaxone Sodium 1 gm/ (Sodium Chloride) 100 mls @ 100 mls/hr IVPB DAILY@ 1700 [facility] Last Admin: 02/17/17 16:51 Dose: 100 mls/hr Methylprednisolone 40 mg/ (Sodium Chloride) 50.64 mls @ 50.64 mls/hr IVPB DAILY @1700 [facility] Last Admin: 02/17/17 16:52 Dose: 50.64 mls/hr Lactobacillus Acidophilus (Bacid Acidophilus) 1 cap PO BID [facility] Last Admin: 02/18/17 09:07 Dose: 1 cap Lidocaine (Lidoderm) 1 ea TD DAILY [facility] Losartan Potassium (Cozaar) 25 mg PO DAILY [facility] Last Admin: 02/18/17 09:04 Dose: 25 mg Naproxen (Naprosyn Tab) 375 mg PO BID PRN PRN Reason: Pain, Mild (1-3) Last Admin: 02/17/17 06:33 Dose: 375 mg Pantoprazole Sodium (Protonix Ec Tab) 40 mg PO DAILY [facility] Last Admin: 02/18/17 09:08 Dose: 40 mg Pravastatin Sodium (Pravachol) 20 mg PO DAILY [facility] Last Admin: 02/18/17 09:04 Dose: 20 mg Physical Exam - Constitutional Appears: Non-toxic - Head Exam Head Exam: NORMAL INSPECTION - Eye Exam Eye Exam: Normal appearance - ENT Exam ENT Exam: Mucous Membranes Moist - Neck Exam Neck exam: Positive for: Full Rom - Respiratory Exam Respiratory Exam: Clear to Auscultation Bilateral - Cardiovascular Exam Cardiovascular Exam: REGULAR RHYTHM - GI/Abdominal Exam GI & Abdominal Exam: Normal Bowel Sounds - Rectal Exam Rectal Exam: Deferred - Extremities Exam Extremities exam: Positive for: pedal edema - Back Exam Back exam: NORMAL INSPECTION - Neurological Exam Neurological exam: Alert, Oriented x3 - Psychiatric Exam Psychiatric exam: Normal Affect - Skin Skin Exam: Normal Color Results - Vital Signs Recent Vital Signs: Last Vital Signs Temp 98.1 F 02/18/17 08:24 Pulse 97 H 02/18/17 09:04 Resp 20 02/18/17 08:24 BP 140/80 02/18/17 09:04 Pulse Ox 99 02/18/17 08:24 - Labs Result Diagrams: 02/17/17 05:15 02/17/17 05:15 - EKG Data EKG Interpreted by: Myself Assessment & Plan (1) Chest pain Assessment and Plan: patient has diffuse pain, which is likley not cardiac . will cotinue medical therapy for CAD. Status: Acute (2) Coronary artery disease Assessment and Plan: antiplatelet therapy Status: Acute (3) HTN (hypertension) Assessment and Plan: blood pressure control Status: Acute
[2017-02-18] MEDS: Lidocaine 5% Patch TD SCH (11:14)
[2017-02-18] MEDS: methylPREDNISolone 40 MG in Sodium Chloride 0.9% 50 ML IVPB SCH (16:20)
[2017-02-18] MEDS: guaiFENesin DM 200 mg-20 mg/10 ml UD PO PRN (20:58)
[2017-02-19] MEDS: Albuterol-Ipratrop 3 mg / 0.5 (3 ml) UD INH SCH ×4 (01:30→19:06)
[2017-02-19] MEDS: Lactobacillus Acidophilus 500 MU Cap PO SCH ×2 (09:11→16:48)
[2017-02-19] MEDS: Lidocaine 5% Patch TD SCH (09:12)
[2017-02-19] MEDS: Pantoprazole 40 mg EC Tab PO SCH (09:13)
[2017-02-19] MEDS: guaiFENesin DM 200 mg-20 mg/10 ml UD PO PRN (09:16)
[2017-02-19] MEDS: Pravastatin Sodium 20 MG TAB PO SCH (09:55)
--- NOTE | 2017-02-19 11:34 | CP.PCM.PN ---
Subjective - Date & Time of Evaluation Date of Evaluation: 02/19/17 Time of Evaluation: 11:35 - Subjective Subjective: STILL HAS CONSTIPATION C/O SHOULDER PAINS SOB LESS COUGH PERSISTS REQUESTS SUBACUTE CARE PLACEMENT Objective - Vital Signs/Intake and Output Vital Signs (last 24 hours): Temp Pulse Resp BP Pulse Ox 98.1 F 101 H 18 143/87 98 02/19/17 08:05 02/19/17 09:14 02/19/17 08:05 02/19/17 09:14 02/19/17 08:05 - Medications Medications: Current Medications Acetaminophen (Tylenol 325mg Tab) 650 mg PO Q4 PRN PRN Reason: Pain, Mild (1-3) Last Admin: 02/18/17 09:07 Dose: 650 mg Albuterol/Ipratropium (Duoneb 3 Mg/0.5 Mg (3 Ml) Ud) 3 ml INH RQ6 [facility] Last Admin: 02/19/17 07:34 Dose: 3 ml Alprazolam (Xanax) 0.5 mg PO DAILY@2100 [facility] Last Admin: 02/18/17 20:58 Dose: 0.5 mg Amlodipine Besylate (Norvasc) 10 mg PO DAILY [facility] Last Admin: 02/19/17 09:13 Dose: 10 mg Aspirin (Ecotrin) 81 mg PO DAILY [facility] Last Admin: 02/19/17 09:13 Dose: 81 mg Azithromycin (Zithromax) 500 mg PO DAILY@1700 [facility] Last Admin: 02/18/17 16:21 Dose: 500 mg Clopidogrel Bisulfate (Plavix) 75 mg PO DAILY [facility] Last Admin: 02/19/17 09:14 Dose: 75 mg Docusate Sodium (Colace) 100 mg PO BID [facility] Last Admin: 02/19/17 09:15 Dose: 100 mg Escitalopram Oxalate (Lexapro) 10 mg PO DAILY [facility] Last Admin: 02/19/17 09:13 Dose: 10 mg Guaifenesin/Dextromethorphan (Robitussin Dm) 10 ml PO Q6 PRN PRN Reason: Cough Last Admin: 02/19/17 09:16 Dose: 10 ml Hydrocortisone (Anusol-Hc) 25 mg [place] BID [facility] Last Admin: 02/19/17 09:11 Dose: 25 mg Ceftriaxone Sodium 1 gm/ (Sodium Chloride) 100 mls @ 100 mls/hr IVPB DAILY@ 1700 [facility] Last Admin: 02/18/17 16:31 Dose: 100 mls/hr Methylprednisolone 40 mg/ (Sodium Chloride) 50.64 mls @ 50.64 mls/hr IVPB DAILY @1700 [facility] Last Admin: 02/18/17 16:20 Dose: 50.64 mls/hr Lactobacillus Acidophilus (Bacid Acidophilus) 1 cap PO BID [facility] Last Admin: 02/19/17 09:11 Dose: 1 cap Lactulose (Enulose) 20 gm PO ONCE ONE Stop: 02/19/17 11:30 Lidocaine (Lidoderm) 1 ea TD DAILY [facility] Last Admin: 02/19/17 09:12 Dose: 1 ea Losartan Potassium (Cozaar) 25 mg PO DAILY [facility] Last Admin: 02/19/17 09:14 Dose: 25 mg Naproxen (Naprosyn Tab) 375 mg PO BID PRN PRN Reason: Pain, Mild (1-3) Last Admin: 02/19/17 09:11 Dose: 375 mg Pantoprazole Sodium (Protonix Ec Tab) 40 mg PO DAILY [facility] Last Admin: 02/19/17 09:13 Dose: 40 mg Pravastatin Sodium (Pravachol) 20 mg PO DAILY [facility] Last Admin: 02/18/17 09:04 Dose: 20 mg - Labs Labs: 02/17/17 05:15 02/17/17 05:15 - Constitutional Appears: Chronically Ill - Head Exam Head Exam: ATRAUMATIC, NORMAL INSPECTION, NORMOCEPHALIC - Eye Exam Eye Exam: EOMI, Normal appearance, PERRL Pupil Exam: NORMAL ACCOMODATION, PERRL - ENT Exam ENT Exam: Mucous Membranes Moist, Normal Exam - Neck Exam Neck Exam: Full ROM, Normal Inspection. absent: Lymphadenopathy - Respiratory Exam Respiratory Exam: Decreased Breath Sounds, Wheezes, NORMAL BREATHING PATTERN - Cardiovascular Exam Cardiovascular Exam: REGULAR RHYTHM, +S1, +S2. absent: Murmur - GI/Abdominal Exam GI & Abdominal Exam: Soft, Normal Bowel Sounds. absent: Tenderness - Rectal Exam Rectal Exam: NORMAL INSPECTION - Extremities Exam Extremities Exam: Full ROM, Normal Capillary Refill, Normal Inspection, Tenderness. absent: Joint Swelling, Pedal Edema - Back Exam Back Exam: NORMAL INSPECTION - Neurological Exam Neurological Exam: Alert, Awake, CN II-XII Intact, Normal Gait, Oriented x3 - Psychiatric Exam Psychiatric exam: Normal Affect, Normal Mood - Skin Skin Exam: Dry, Intact, Normal Color, Warm Assessment and Plan - Assessment and Plan (Free Text) Assessment: COPD EXAC ARTHRITIS URI ASHD HTN CONSTIPATION Plan: CONTINUE RX ORDERED [facility] FOR SUBACUTE CARE AT [facility][ PER PT REQUEST]
[2017-02-19 16:07] VITALS: RESP 20
[2017-02-19] MEDS: methylPREDNISolone 40 MG in Sodium Chloride 0.9% 50 ML IVPB SCH (16:46)
[2017-02-20] MEDS: Albuterol-Ipratrop 3 mg / 0.5 (3 ml) UD INH SCH ×4 (01:01→19:12)
--- NOTE | 2017-02-20 08:00 | CP.PCM.PN ---
Subjective - Date & Time of Evaluation Date of Evaluation: 02/20/17 Time of Evaluation: 08:00 - Subjective Subjective: MILD SOB AT REST STILL HAS CONSTIPATION Objective - Vital Signs/Intake and Output Vital Signs (last 24 hours): Temp Pulse Resp BP Pulse Ox 97.0 F L 98 H 20 133/74 91 L 02/19/17 20:42 02/19/17 20:42 02/19/17 20:42 02/19/17 20:42 02/19/17 20:42 - Medications Medications: Current Medications Acetaminophen (Tylenol 325mg Tab) 650 mg PO Q4 PRN PRN Reason: Pain, Mild (1-3) Last Admin: 02/18/17 09:07 Dose: 650 mg Albuterol/Ipratropium (Duoneb 3 Mg/0.5 Mg (3 Ml) Ud) 3 ml INH RQ6 [facility] Last Admin: 02/20/17 01:01 Dose: Not Given Alprazolam (Xanax) 0.5 mg PO DAILY@2100 [facility] Last Admin: 02/19/17 21:48 Dose: 0.5 mg Amlodipine Besylate (Norvasc) 10 mg PO DAILY [facility] Last Admin: 02/19/17 09:13 Dose: 10 mg Aspirin (Ecotrin) 81 mg PO DAILY [facility] Last Admin: 02/19/17 09:13 Dose: 81 mg Azithromycin (Zithromax) 500 mg PO DAILY@1700 [facility] Last Admin: 02/19/17 16:47 Dose: 500 mg Clopidogrel Bisulfate (Plavix) 75 mg PO DAILY [facility] Last Admin: 02/19/17 09:14 Dose: 75 mg Docusate Sodium (Colace) 100 mg PO BID [facility] Last Admin: 02/19/17 16:48 Dose: 100 mg Escitalopram Oxalate (Lexapro) 10 mg PO DAILY [facility] Last Admin: 02/19/17 09:13 Dose: 10 mg Guaifenesin/Dextromethorphan (Robitussin Dm) 10 ml PO Q6 PRN PRN Reason: Cough Last Admin: 02/19/17 09:16 Dose: 10 ml Hydrocortisone (Anusol-Hc) 25 mg CO BID [facility] Last Admin: 02/19/17 16:48 Dose: 25 mg Ceftriaxone Sodium 1 gm/ (Sodium Chloride) 100 mls @ 100 mls/hr IVPB DAILY@ 1700 [facility] Last Admin: 02/19/17 16:46 Dose: 100 mls/hr Methylprednisolone 40 mg/ (Sodium Chloride) 50.64 mls @ 50.64 mls/hr IVPB DAILY @1700 [facility] Last Admin: 02/19/17 16:46 Dose: 50.64 mls/hr Lactobacillus Acidophilus (Bacid Acidophilus) 1 cap PO BID [facility] Last Admin: 02/19/17 16:48 Dose: 1 cap Lidocaine (Lidoderm) 1 ea TD DAILY [facility] Last Admin: 02/19/17 09:12 Dose: 1 ea Losartan Potassium (Cozaar) 25 mg PO DAILY [facility] Last Admin: 02/19/17 09:14 Dose: 25 mg Naproxen (Naprosyn Tab) 375 mg PO BID PRN PRN Reason: Pain, Mild (1-3) Last Admin: 02/19/17 09:11 Dose: 375 mg Pantoprazole Sodium (Protonix Ec Tab) 40 mg PO DAILY [facility] Last Admin: 02/19/17 09:13 Dose: 40 mg Pravastatin Sodium (Pravachol) 20 mg PO DAILY [facility] Last Admin: 02/19/17 09:55 Dose: 20 mg - Labs Labs: 02/17/17 05:15 02/17/17 05:15 - Constitutional Appears: Chronically Ill - Head Exam Head Exam: ATRAUMATIC, NORMAL INSPECTION, NORMOCEPHALIC - Eye Exam Eye Exam: EOMI, Normal appearance, PERRL Pupil Exam: NORMAL ACCOMODATION, PERRL - ENT Exam ENT Exam: Mucous Membranes Moist, Normal Exam - Neck Exam Neck Exam: Full ROM, Normal Inspection. absent: Lymphadenopathy - Respiratory Exam Respiratory Exam: Decreased Breath Sounds, Prolonged Expiratory Phase, Wheezes, NORMAL BREATHING PATTERN - Cardiovascular Exam Cardiovascular Exam: REGULAR RHYTHM, +S1, +S2. absent: Murmur - GI/Abdominal Exam GI & Abdominal Exam: Soft, Normal Bowel Sounds. absent: Tenderness - Rectal Exam Rectal Exam: NORMAL INSPECTION - Extremities Exam Extremities Exam: Full ROM, Normal Capillary Refill, Normal Inspection. absent : Joint Swelling, Pedal Edema - Back Exam Back Exam: NORMAL INSPECTION - Neurological Exam Neurological Exam: Alert, Awake, CN II-XII Intact, Normal Gait, Oriented x3 - Psychiatric Exam Psychiatric exam: Normal Affect, Normal Mood - Skin Skin Exam: Dry, Intact, Normal Color, Warm Assessment and Plan - Assessment and Plan (Free Text) Assessment: ACUTE EXAC OF COPD HTN ASHD ARTHRITIS CONSTIPATION Plan: D/C ZITHROMAX CONTINUE OTHER RX FLEETS [facility]
[2017-02-20] MEDS: Pantoprazole 40 mg EC Tab PO SCH (08:42)
[2017-02-20] MEDS: Lidocaine 5% Patch TD SCH (08:44)
[2017-02-20] MEDS: Lactobacillus Acidophilus 500 MU Cap PO SCH ×2 (08:49→16:32)
[2017-02-20] MEDS: Pravastatin Sodium 20 MG TAB PO SCH (08:49)
[2017-02-20] MEDS: methylPREDNISolone 40 MG in Sodium Chloride 0.9% 50 ML IVPB SCH (16:32)
[2017-02-20] MEDS: Promethazine DM 12.5 mg-30 mg/10 ml Syrup PO PRN (22:25)
[2017-02-21] MEDS: Albuterol-Ipratrop 3 mg / 0.5 (3 ml) UD INH SCH ×4 (01:11→19:21)
--- NOTE | 2017-02-21 08:33 | CP.PCM.PN ---
Subjective - Date & Time of Evaluation Date of Evaluation: 02/21/17 Time of Evaluation: 08:32 - Subjective Subjective: STILL CONSTIPATED SOB LESS Objective - Vital Signs/Intake and Output Vital Signs (last 24 hours): Temp Pulse Resp BP Pulse Ox 97.9 F 90 20 111/61 99 02/20/17 20:43 02/20/17 20:43 02/20/17 20:43 02/20/17 20:43 02/20/17 20:43 - Medications Medications: Current Medications Acetaminophen (Tylenol 325mg Tab) 650 mg PO Q4 PRN PRN Reason: Pain, Mild (1-3) Last Admin: 02/18/17 09:07 Dose: 650 mg Albuterol/Ipratropium (Duoneb 3 Mg/0.5 Mg (3 Ml) Ud) 3 ml INH RQ6 [facility] Last Admin: 02/21/17 07:25 Dose: 3 ml Alprazolam (Xanax) 0.5 mg PO DAILY@2100 [facility] Last Admin: 02/20/17 22:22 Dose: 0.5 mg Amlodipine Besylate (Norvasc) 10 mg PO DAILY [facility] Last Admin: 02/20/17 08:42 Dose: 10 mg Aspirin (Ecotrin) 81 mg PO DAILY [facility] Last Admin: 02/20/17 08:43 Dose: 81 mg Clopidogrel Bisulfate (Plavix) 75 mg PO DAILY [facility] Last Admin: 02/20/17 08:44 Dose: 75 mg Docusate Sodium (Colace) 100 mg PO BID [facility] Last Admin: 02/20/17 16:30 Dose: 100 mg Escitalopram Oxalate (Lexapro) 10 mg PO DAILY [facility] Last Admin: 02/20/17 08:42 Dose: 10 mg Hydrocortisone (Anusol-Hc) 25 mg [place] BID [facility] Last Admin: 02/20/17 16:30 Dose: 25 mg Ceftriaxone Sodium 1 gm/ (Sodium Chloride) 100 mls @ 100 mls/hr IVPB DAILY@ 1700 [facility] Last Admin: 02/20/17 16:33 Dose: 100 mls/hr Methylprednisolone 40 mg/ (Sodium Chloride) 50.64 mls @ 50.64 mls/hr IVPB DAILY @1700 [facility] Last Admin: 02/20/17 16:32 Dose: 50.64 mls/hr Lactobacillus Acidophilus (Bacid Acidophilus) 1 cap PO BID [facility] Last Admin: 02/20/17 16:32 Dose: 1 cap Lidocaine (Lidoderm) 1 ea TD DAILY [facility] Last Admin: 02/20/17 08:44 Dose: 1 ea Losartan Potassium (Cozaar) 25 mg PO DAILY [facility] Last Admin: 02/20/17 08:42 Dose: 25 mg Naproxen (Naprosyn Tab) 375 mg PO BID PRN PRN Reason: Pain, Mild (1-3) Last Admin: 02/19/17 09:11 Dose: 375 mg Pantoprazole Sodium (Protonix Ec Tab) 40 mg PO DAILY [facility] Last Admin: 02/20/17 08:42 Dose: 40 mg Pravastatin Sodium (Pravachol) 20 mg PO DAILY [facility] Last Admin: 02/20/17 08:49 Dose: 20 mg Promethazine HCl/Dextromethorphan (Phenergan Dm Syrup) 10 ml PO Q8 PRN PRN Reason: Cough Last Admin: 02/20/17 22:25 Dose: 10 ml - Labs Labs: 02/17/17 05:15 02/17/17 05:15 - Constitutional Appears: Chronically Ill - Head Exam Head Exam: ATRAUMATIC, NORMAL INSPECTION, NORMOCEPHALIC - Eye Exam Eye Exam: EOMI, Normal appearance, PERRL Pupil Exam: NORMAL ACCOMODATION, PERRL - ENT Exam ENT Exam: Mucous Membranes Moist, Normal Exam - Neck Exam Neck Exam: Full ROM, Normal Inspection. absent: Lymphadenopathy - Respiratory Exam Respiratory Exam: Decreased Breath Sounds, Prolonged Expiratory Phase, Rales, NORMAL BREATHING PATTERN - Cardiovascular Exam Cardiovascular Exam: REGULAR RHYTHM, +S1, +S2. absent: Murmur - GI/Abdominal Exam GI & Abdominal Exam: Soft, Normal Bowel Sounds. absent: Tenderness - Rectal Exam Rectal Exam: NORMAL INSPECTION - Extremities Exam Extremities Exam: Full ROM, Normal Capillary Refill, Normal Inspection. 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
[2017-02-21] MEDS: Lidocaine 5% Patch TD SCH (09:06)
[2017-02-21] MEDS: Pantoprazole 40 mg EC Tab PO SCH (09:07)
[2017-02-21] MEDS: Pravastatin Sodium 20 MG TAB PO SCH (09:12)
[2017-02-21] MEDS: Lactobacillus Acidophilus 500 MU Cap PO SCH ×2 (09:12→16:40)
[2017-02-21] MEDS: methylPREDNISolone 40 MG in Sodium Chloride 0.9% 50 ML IVPB SCH (16:10)
[2017-02-21] MEDS: Promethazine DM 12.5 mg-30 mg/10 ml Syrup PO PRN (22:44)
[2017-02-22] MEDS: Albuterol-Ipratrop 3 mg / 0.5 (3 ml) UD INH SCH ×4 (00:59→19:01)
[2017-02-22] MEDS: Pantoprazole 40 mg EC Tab PO SCH (08:40)
[2017-02-22] MEDS: Lactobacillus Acidophilus 500 MU Cap PO SCH ×2 (08:40→16:20)
[2017-02-22] MEDS: Pravastatin Sodium 20 MG TAB PO SCH (08:41)
[2017-02-22] MEDS: Lidocaine 5% Patch TD SCH (08:43)
--- NOTE | 2017-02-22 09:53 | CP.PCM.PN ---
Subjective - Date & Time of Evaluation Date of Evaluation: 02/22/17 Time of Evaluation: 09:53 - Subjective Subjective: STILL CONSTIPATED SHOULDER PAINS PERSIST Objective - Vital Signs/Intake and Output Vital Signs (last 24 hours): Temp Pulse Resp BP Pulse Ox 97.7 F 100 H 20 134/64 81 L 02/22/17 08:18 02/22/17 08:42 02/22/17 08:18 02/22/17 08:42 02/22/17 08:18 - Medications Medications: Current Medications Acetaminophen (Tylenol 325mg Tab) 650 mg PO Q4 PRN PRN Reason: Pain, Mild (1-3) Last Admin: 02/18/17 09:07 Dose: 650 mg Albuterol/Ipratropium (Duoneb 3 Mg/0.5 Mg (3 Ml) Ud) 3 ml INH RQ6 [facility] Last Admin: 02/22/17 07:31 Dose: 3 ml Alprazolam (Xanax) 0.5 mg PO DAILY@2100 [facility] Last Admin: 02/21/17 22:44 Dose: 0.5 mg Amlodipine Besylate (Norvasc) 10 mg PO DAILY [facility] Last Admin: 02/22/17 08:40 Dose: 10 mg Aspirin (Ecotrin) 81 mg PO DAILY [facility] Last Admin: 02/22/17 08:42 Dose: 81 mg Clopidogrel Bisulfate (Plavix) 75 mg PO DAILY [facility] Last Admin: 02/22/17 08:40 Dose: 75 mg Docusate Sodium (Colace) 100 mg PO BID [facility] Last Admin: 02/22/17 08:41 Dose: 100 mg Escitalopram Oxalate (Lexapro) 10 mg PO DAILY [facility] Last Admin: 02/22/17 08:40 Dose: 10 mg Hydrocortisone (Anusol-Hc) 25 mg [place] BID [facility] Last Admin: 02/22/17 08:39 Dose: 25 mg Ceftriaxone Sodium 1 gm/ (Sodium Chloride) 100 mls @ 100 mls/hr IVPB DAILY@ 1700 [facility] Last Admin: 02/21/17 16:40 Dose: 100 mls/hr Methylprednisolone 40 mg/ (Sodium Chloride) 50.64 mls @ 50.64 mls/hr IVPB DAILY @1700 [facility] Last Admin: 02/21/17 16:10 Dose: 50.64 mls/hr Lactobacillus Acidophilus (Bacid Acidophilus) 1 cap PO BID [facility] Last Admin: 02/22/17 08:40 Dose: 1 cap Lactulose (Enulose) 20 gm PO DAILY PRN PRN Reason: Constipation Last Admin: 02/21/17 09:37 Dose: 20 gm Lidocaine (Lidoderm) 1 ea TD DAILY [facility] Last Admin: 02/22/17 08:43 Dose: 1 ea Losartan Potassium (Cozaar) 25 mg PO DAILY [facility] Last Admin: 02/22/17 08:42 Dose: 25 mg Naproxen (Naprosyn Tab) 375 mg PO BID PRN PRN Reason: Pain, Mild (1-3) Last Admin: 02/19/17 09:11 Dose: 375 mg Pantoprazole Sodium (Protonix Ec Tab) 40 mg PO DAILY [facility] Last Admin: 02/22/17 08:40 Dose: 40 mg Pravastatin Sodium (Pravachol) 20 mg PO DAILY [facility] Last Admin: 02/22/17 08:41 Dose: 20 mg Promethazine HCl/Dextromethorphan (Phenergan Dm Syrup) 10 ml PO Q8 PRN PRN Reason: Cough Last Admin: 02/21/17 22:44 Dose: 10 ml - Labs Labs: 02/17/17 05:15 02/17/17 05:15 - Constitutional Appears: Chronically Ill - Head Exam Head Exam: ATRAUMATIC, NORMAL INSPECTION, NORMOCEPHALIC - Eye Exam Eye Exam: EOMI, Normal appearance, PERRL Pupil Exam: NORMAL ACCOMODATION, PERRL - ENT Exam ENT Exam: Mucous Membranes Moist, Normal Exam - Neck Exam Neck Exam: Full ROM, Normal Inspection. absent: Lymphadenopathy - Respiratory Exam Respiratory Exam: Decreased Breath Sounds, Prolonged Expiratory Phase, NORMAL BREATHING PATTERN - Cardiovascular Exam Cardiovascular Exam: REGULAR RHYTHM, +S1, +S2. absent: Murmur - GI/Abdominal Exam GI & Abdominal Exam: Soft, Normal Bowel Sounds. absent: Tenderness - Rectal Exam Rectal Exam: NORMAL INSPECTION - Extremities Exam Extremities Exam: Full ROM, Normal Capillary Refill, Normal Inspection. absent : Joint Swelling, Pedal Edema - Back Exam Back Exam: NORMAL INSPECTION - Neurological Exam Neurological Exam: Alert, Awake, CN II-XII Intact, Normal Gait, Oriented x3 - Psychiatric Exam Psychiatric exam: Normal Affect, Normal Mood - Skin Skin Exam: Dry, Intact, Normal Color, Warm Assessment and Plan - Assessment and Plan (Free Text) Assessment: COPD EXAC URI CONSTIPATION ARTHRITIS Plan: CONTINUE PRESENT RX FOR TRANSFER TO SUBACUTE CARE
[2017-02-22] MEDS ORDERED: Magnesium Citrate Oral SOL (300 ml) PO ONE (10:00)
[2017-02-22] MEDS ORDERED: Triamcinolone Acetonide 40 mg/mL Inj IAA ONE (12:34)
[2017-02-22] MEDS ORDERED: Dexamethasone 4 mg/1 ml IAA ONE (12:34)
[2017-02-22] MEDS ORDERED: Lidocaine 1% Inj (20ml) IJ ONE (12:34)
--- NOTE | 2017-02-22 12:35 | CP.PCM.PN ---
Subjective - Date & Time of Evaluation Date of Evaluation: 02/22/17 Time of Evaluation: 12:34 - Subjective Subjective: patient now wants the injection that she initially did not want I have ordered the medication and will do later today Objective - Vital Signs/Intake and Output Vital Signs (last 24 hours): Temp Pulse Resp BP Pulse Ox 97.7 F 100 H 20 134/64 81 L 02/22/17 08:18 02/22/17 08:42 02/22/17 08:18 02/22/17 08:42 02/22/17 08:18 - Medications Medications: Current Medications Acetaminophen (Tylenol 325mg Tab) 650 mg PO Q4 PRN PRN Reason: Pain, Mild (1-3) Last Admin: 02/18/17 09:07 Dose: 650 mg Albuterol/Ipratropium (Duoneb 3 Mg/0.5 Mg (3 Ml) Ud) 3 ml INH RQ6 [facility] Last Admin: 02/22/17 07:31 Dose: 3 ml Alprazolam (Xanax) 0.5 mg PO DAILY@2100 [facility] Last Admin: 02/21/17 22:44 Dose: 0.5 mg Amlodipine Besylate (Norvasc) 10 mg PO DAILY [facility] Last Admin: 02/22/17 08:40 Dose: 10 mg Aspirin (Ecotrin) 81 mg PO DAILY [facility] Last Admin: 02/22/17 08:42 Dose: 81 mg Clopidogrel Bisulfate (Plavix) 75 mg PO DAILY [facility] Last Admin: 02/22/17 08:40 Dose: 75 mg Docusate Sodium (Colace) 100 mg PO BID [facility] Last Admin: 02/22/17 08:41 Dose: 100 mg Escitalopram Oxalate (Lexapro) 10 mg PO DAILY [facility] Last Admin: 02/22/17 08:40 Dose: 10 mg Hydrocortisone (Anusol-Hc) 25 mg [place] BID [facility] Last Admin: 02/22/17 08:39 Dose: 25 mg Ceftriaxone Sodium 1 gm/ (Sodium Chloride) 100 mls @ 100 mls/hr IVPB DAILY@ 1700 [facility] Last Admin: 02/21/17 16:40 Dose: 100 mls/hr Methylprednisolone 40 mg/ (Sodium Chloride) 50.64 mls @ 50.64 mls/hr IVPB DAILY @1700 [facility] Last Admin: 02/21/17 16:10 Dose: 50.64 mls/hr Lactobacillus Acidophilus (Bacid Acidophilus) 1 cap PO BID [facility] Last Admin: 02/22/17 08:40 Dose: 1 cap Lactulose (Enulose) 20 gm PO DAILY PRN PRN Reason: Constipation Last Admin: 02/21/17 09:37 Dose: 20 gm Lidocaine (Lidoderm) 1 ea TD DAILY [facility] Last Admin: 02/22/17 08:43 Dose: 1 ea Losartan Potassium (Cozaar) 25 mg PO DAILY [facility] Last Admin: 02/22/17 08:42 Dose: 25 mg Naproxen (Naprosyn Tab) 375 mg PO BID PRN PRN Reason: Pain, Mild (1-3) Last Admin: 02/19/17 09:11 Dose: 375 mg Pantoprazole Sodium (Protonix Ec Tab) 40 mg PO DAILY [facility] Last Admin: 02/22/17 08:40 Dose: 40 mg Pravastatin Sodium (Pravachol) 20 mg PO DAILY [facility] Last Admin: 02/22/17 08:41 Dose: 20 mg Promethazine HCl/Dextromethorphan (Phenergan Dm Syrup) 10 ml PO Q8 PRN PRN Reason: Cough Last Admin: 02/21/17 22:44 Dose: 10 ml - Labs Labs: 02/17/17 05:15 02/17/17 05:15
[2017-02-22] MEDS: methylPREDNISolone 40 MG in Sodium Chloride 0.9% 50 ML IVPB SCH (16:19)
[2017-02-22] MEDS ORDERED: Povidone Iodine Topical 10% Sol ONE (16:34)
--- NOTE | 2017-02-22 16:47 | PCM.PROC ---
Procedures Attestation:: I certify that I have explained the specified Operation(s) or Procedure(s), risks, benefits and reasonable alternatives to the Patient and/or other person responsible. The opportunity was given to ask questions and all questions answered - Joint Aspiration/Injection Joint #1 Consent Obtained: Verbal Consent Time Out Performed: Yes Side of Body: Right Joint Aspirated: Shoulder Ultrasound Guidance Used: No Skin Prep: Povidone-Iodine Local Anesthesia Used: Lidocaine 1% Needle Size Used: 22 G Medication Injected: Triamcinolone Acetate, Methylprednisolone, Lidocaine Patient Tolorated Procedure: Well Complications: None
[2017-02-22] MEDS: Promethazine DM 12.5 mg-30 mg/10 ml Syrup PO PRN (22:16)
[2017-02-23] MEDS: Albuterol-Ipratrop 3 mg / 0.5 (3 ml) UD INH SCH ×3 (01:13→13:05)
--- NOTE | 2017-02-23 07:55 | CP.PCM.DIS ---
Provider - Provider Date of Admission: 02/15/17 17:07 Attending physician: Christofer Camacho MD Time Spent in preparation of Discharge (in minutes): 30 Diagnosis - Discharge Diagnosis (1) Constipation Status: Acute (2) Anxiety and depression Status: Acute (3) Arthritis Status: Acute (4) COPD exacerbation Status: Acute (5) Coronary artery disease Status: Acute (6) HTN (hypertension) Status: Acute Hospital Course - Lab Results Lab Results: Most Recent Lab Values WBC 10.1 K/uL (4.8-10.8) D 02/17/17 05:15 RBC 4.64 Mil/uL (3.80-5.20) 02/17/17 05:15 Hgb 13.3 g/dL (12.0-16.0) 02/17/17 05:15 Hct 40.3 % (34.0-47.0) 02/17/17 05:15 MCV 86.8 fl (81.0-99.0) 02/17/17 05:15 MCH 28.7 pg (27.0-31.0) 02/17/17 05:15 MCHC 33.0 g/dL (33.0-37.0) 02/17/17 05:15 RDW 14.2 % (11.5-14.5) 02/17/17 05:15 Plt Count 324 K/uL (130-400) 02/17/17 05:15 Sodium 142 mmol/l (132-148) 02/17/17 05:15 Potassium 3.6 MMOL/L (3.6-5.0) 02/17/17 05:15 Chloride 99 mmol/L (98-107) 02/17/17 05:15 Carbon Dioxide 29 mmol/L (22-30) 02/17/17 05:15 Anion Gap 18 (10-20) 02/17/17 05:15 BUN 26 mg/dl (7-17) H 02/17/17 05:15 Creatinine 0.7 mg/dL (0.7-1.2) 02/17/17 05:15 Est GFR ( Amer) > 60 02/17/17 05:15 Est GFR (Non-Af Amer) > 60 02/17/17 05:15 POC Glucose (mg/dL) 107 mg/dL (65-110) 02/17/17 05:27 Random Glucose 92 mg/dL (65-105) 02/17/17 05:15 Calcium 9.4 mg/dL (8.4-10.2) 02/17/17 05:15 Total Bilirubin 0.7 mg/dl (0.2-1.3) 02/17/17 05:15 AST 18 U/L (14-36) 02/17/17 05:15 ALT 38 U/L (9-52) 02/17/17 05:15 Alkaline Phosphatase 78 U/L (38-126) 02/17/17 05:15 Total Protein 6.1 G/DL (6.3-8.2) L 02/17/17 05:15 Albumin 3.6 g/dL (3.5-5.0) 02/17/17 05:15 Globulin 2.5 gm/dL (2.2-3.9) 02/17/17 05:15 Albumin/Globulin Ratio 1.5 (1.0-2.1) 02/17/17 05:15 Thyroxine (T4) 8.10 ug/dl (5.5-11.0) 02/17/17 05:15 TSH 3rd Generation 2.46 mIU/ML (0.46-4.68) 02/17/17 05:15 - Hospital Course Hospital Course: still has mild dyspnea on exertion and shoulder pains Discharge Exam - Head Exam Head Exam: ATRAUMATIC, NORMAL INSPECTION, NORMOCEPHALIC - Eye Exam Eye Exam: EOMI, Normal appearance, PERRL Pupil Exam: NORMAL ACCOMODATION, PERRL - Respiratory Exam Respiratory Exam: Decreased Breath Sounds, Prolonged Expiratory Phase - GI/Abdominal Exam GI & Abdominal Exam: Normal Bowel Sounds - Rectal Exam Rectal Exam: NORMAL INSPECTION - Neurological Exam Neurological exam: Alert, CN II-XII Intact, Normal Gait, Oriented x3, Reflexes Normal - Psychiatric Exam Psychiatric exam: Normal Affect, Normal Mood - Skin Skin Exam: Dry, Intact, Normal Color, Warm Discharge Plan - Follow Up Plan Condition: GOOD Disposition: HOME/ ROUTINE Patient education suggested?: Yes Additional Instructions: discharge to subacute care
[2017-02-23 08:07] VITALS: BP 131/70; PULSE 78; TEMP 97.7; O2SAT 99
[2017-02-23] MEDS: Lidocaine 5% Patch TD SCH (09:18)
[2017-02-23] MEDS: Lactobacillus Acidophilus 500 MU Cap PO SCH (09:19)
[2017-02-23] MEDS: Pantoprazole 40 mg EC Tab PO SCH (09:22)
[2017-02-23] MEDS: Pravastatin Sodium 20 MG TAB PO SCH (09:22)
== END 2017-02-23 14:45 | DRG 192 ==
LOC: H.TCU 17:07
PROVIDERS: ADMIT Internal Medicine Pulmonary Disease; ATTEND Internal Medicine Pulmonary Disease
PROC: F07Z9FZ Gait Training/Functional Ambulation Treatment using Assistive, Adaptive, Supportive or Protective Equipment (ICD-10-PCS; 2017-02-15)
PROC: F07Z8ZZ Transfer Training Treatment (ICD-10-PCS; 2017-02-15)
PROC: F08Z1FZ Dressing Techniques Treatment using Assistive, Adaptive, Supportive or Protective Equipment (ICD-10-PCS; 2017-02-15)
PROC: F08Z0FZ Bathing/Showering Techniques Treatment using Assistive, Adaptive, Supportive or Protective Equipment (ICD-10-PCS; 2017-02-15)
PROC: F07L6FZ Therapeutic Exercise Treatment of Musculoskeletal System - Lower Back / Lower Extremity using Assistive, Adaptive, Supportive or Protective Equipment (ICD-10-PCS; 2017-02-15)
PROC: 5A0945Z Assistance with Respiratory Ventilation, 24-96 Consecutive Hours (ICD-10-PCS; 2017-02-15)
PROC: 0R9J3ZZ Drainage of Right Shoulder Joint, Percutaneous Approach (ICD-10-PCS; principal; 2017-02-22)
PROC: 3E0U33Z Introduction of Anti-inflammatory into Joints, Percutaneous Approach (ICD-10-PCS; 2017-02-22)
PROC: 3E0U3BZ Introduction of Anesthetic Agent into Joints, Percutaneous Approach (ICD-10-PCS; 2017-02-22)
DX: J44.1 Chronic obstructive pulmonary disease with (acute) exacerbation (principal); I10 Essential (primary) hypertension; F32.9 Major depressive disorder, single episode, unspecified; K59.00 Constipation, unspecified; E78.00 Pure hypercholesterolemia, unspecified; F41.9 Anxiety disorder, unspecified; I25.10 Atherosclerotic heart disease of native coronary artery without angina pectoris; J06.9 Acute upper respiratory infection, unspecified; Z88.3 Allergy status to other anti-infective agents; K29.70 Gastritis, unspecified, without bleeding; M25.511 Pain in right shoulder

== ENCOUNTER 2018-07-16 11:02 | Inpatient (IN) | payer MEDICARE, OTHER ==
[2018-07-16] MEDS ORDERED: Albuterol-Ipratrop 3 mg / 0.5 (3 ml) UD INH STA (11:32)
--- NOTE | 2018-07-16 11:36 | ED PDOC ---
HPI: Chest Pain Time Seen by Provider: 07/16/18 11:14 Chief Complaint (Nursing): Chest Pain Chief Complaint (Provider): chest pain History Per: Patient Additional Complaint(s): 78 y/o F with HTN, HL, CAD s/p stents last 2 years ago who presents with chest pressure that began last night while sitting down. Has occurred intermittently throughout the night. Lasts about a couple of minutes and was self alleviated. This morning episode lasted 30min, which was much longer than usual stating this morning was 8/10 on pain scale. Took 1 SL NTG with minimal relief. She has been having SOB throughout the weekend and developed a non-productive cough. Has been using her inhaler and nebulizer machine throughout the weekend. Currently no C/P, minimal SOB. Denies dizziness, palpitations. Went to see her PMD Dr. Camacho this morning who sent her to ED for further evaluation. Past Medical History Vital Signs: Last Vital Signs Temp 97.5 F L 07/16/18 11:09 Pulse 70 07/16/18 11:09 Resp 17 07/16/18 11:09 BP 175/97 H 07/16/18 11:09 Pulse Ox 98 07/16/18 11:09 - Medical History PMH: Anxiety, Arthritis, Asthma, Bronchitis, CAD, COPD, Emphysema, Gastritis, HTN, Pneumonia Denies: HIV, Chronic Kidney Disease - Surgical History Surgical History: Coronary Stent (x3) - Family History Family History: States: Unknown Family Hx - Home Medications Home Medications: Ambulatory Orders Medication Instructions Recorded RX: Clopidogrel [Plavix] 75 mg PO DAILY 10/08/16 RX: amLODIPine [Norvasc] 10 mg PO DAILY #90 tab 10/19/16 RX: Escitalopram [Lexapro] 10 mg PO DAILY 02/11/17 RX: hydroCHLOROthiazide 25 mg PO DAILY 02/11/17 [Hydrodiuril] ALPRAZolam [Xanax] 0.25 mg PO HS 07/16/18 Nitroglycerin [Nitromist] 400 mcg SL Q5MIN PRN 07/16/18 Oxycodone HCl/Acetaminophen 1 tab PO Q6 PRN 07/16/18 [Percocet 10-325 mg Tablet] RX: Baclofen [Lioresal] 10 mg PO Q12 PRN 07/16/18 Rosuvastatin Calcium [Crestor] 5 mg PO HS 07/16/18 - Allergies Allergies/Adverse Reactions: Allergies Allergy/AdvReac Type Severity Reaction Status Date / Time ciprofloxacin AdvReac ITCHING Verified 02/15/17 17:06 Physical Exam - Reviewed Nursing Documentation Reviewed: Yes Vital Signs Reviewed: Yes - Physical Exam Appears: Positive for: Non-toxic Skin: Positive for: Normal Color Cardiovascular/Chest: Positive for: Regular Rate, Rhythm, Chest Non Tender, Edema (trace pedal edema B/L), Murmur (III/ WILLY heard best at 2nd Right intercostal space w/o radiation to neck or axilla. ). Negative for: Gallop, JVD, Friction Rub Respiratory: Positive for: Wheezing (mild expiratory wheeze B/L). Negative for: Rales, Rhonchi Gastrointestinal/Abdominal: Positive for: Normal Exam Neurologic/Psych: Positive for: Alert, Oriented - Laboratory Results Result Diagrams: 07/16/18 11:55 07/16/18 11:55 - ECG O2 Sat by Pulse Oximetry: 98 Medical Decision Making Medical Decision Making: EKG CBC, CMP, Troponin, BNP CXR PA and lateral Tele DuoNeb x 1 EKG done in triage: sinus, HR 77, non-specific t wave abnormality in inferior leads, no ST depression or elevation. NO tele events CXR read by me: unchanged widened mediastinum; no consolidation or pulmonary edema appreciated Trop negative and BNP 100s 13:00: patient re-evaluated and denies further chest pain or discomfort since being in ED 13:50: case discussed and care transferred to Dr. Camacho re: admission to Obs- tele for R/O MO and cardiology consultation with Dr. Schultz. Disposition - Clinical Impression Clinical Impression: Chest pain - Patient ED Disposition Is Patient to be Admitted: Yes Discussed With : Christofer Camacho Doctor Will See Patient In The: Hospital Counseled Patient/Family Regarding: Studies Performed, Diagnosis, Need For Followup - Disposition Disposition: Transfer of Care (Dr. Camacho) Disposition Time: 14:05 Condition: STABLE
[2018-07-16 12:06] LABS: BASO % 0.5 % (0.0-2.0); EOS % 0.4 % (0.0-4.0); HEMOGLOBIN 13.6 g/dL (12.0-16.0); LYMPH # 2.3 K/uL (1.0-4.3); LYMPH % 24.9 % (20.0-40.0); MEAN CELL VOLUME 85.5 fl (81.0-99.0); MEAN CORPUSCULAR HEMOGLOBIN 28.5 pg (27.0-31.0); MEAN CORPUSCULAR HGB CONC 33.4 g/dL (33.0-37.0); MEAN PLATELET VOLUME 8.1 fl (7.2-11.7); MONO # 0.5 K/uL (0.0-0.8); MONO % 5.8 % (0.0-10.0); NEUT # 6.4 K/uL (1.8-7.0); NEUT % 68.4 % (50.0-75.0); RBC 4.76 Mil/uL (3.80-5.20); RED CELL DISTRIBUTION WIDTH 15.2 % (11.5-14.5); WHITE BLOOD COUNT 9.3 K/uL (4.8-10.8)
[2018-07-16] MEDS ORDERED: Albuterol-Ipratrop 3 mg / 0.5 (3 ml) UD ONE (12:12)
[2018-07-16 12:21] LABS: ALB/GLOB RATIO 1.6 (1.0-2.1); ALBUMIN 4.1 g/dL (3.5-5.0); ALT/SGPT 35 U/L (9-52); AST/SGOT 25 U/L (14-36); BLOOD UREA NITROGEN 18 mg/dl (7-17); CALCIUM 9.8 mg/dL (8.4-10.2); GFR NON-AFRICAN AMERICAN > 60
[2018-07-16 12:30] LABS: B-TYPE NATRIURETIC PEPTIDE 150 pg/ml (0-900)
--- NOTE | 2018-07-16 13:56 | RAD ---
Date of service: 07/16/2018 HISTORY: Shortness of breath, cough. Chest pain and hypertension COMPARISON: No prior. TECHNIQUE: Chest PA and lateral FINDINGS: LUNGS: No active pulmonary disease. PLEURA: No significant pleural effusion identified. No pneumothorax apparent. CARDIOVASCULAR: No aortic atherosclerotic calcification present. No radiographic findings to suggest acute or significant cardiovascular disease. No pulmonary vascular congestion. OSSEOUS STRUCTURES: No significant abnormalities. VISUALIZED UPPER ABDOMEN: Normal. OTHER FINDINGS: None. IMPRESSION: No active disease.
[2018-07-16 16:07] VITALS: BMI 25.8
--- NOTE | 2018-07-16 16:56 | CARD ---
APPROVED REPORT Date of service: 07/16/2018 EKG Measurement Heart [id number] <Conclusion> Normal sinus rhythm Left axis deviation Minimal voltage criteria for LVH, may be normal variant Abnormal ECG
[2018-07-16] MEDS: Enoxaparin 40 mg Syringe SC SCH (18:45)
--- NOTE | 2018-07-17 08:03 | CP.PCM.CON ---
Past Patient History - Past Medical History & Family History Past Medical History?: Yes - Past Social History Smoking Status: Never Smoked - CARDIAC Hx Hypertension: Yes - PULMONARY Hx Asthma: Yes Hx Bronchitis: Yes Hx Chronic Obstructive Pulmonary Disease (COPD): Yes Hx Emphysema: Yes Hx Pneumonia: Yes - NEUROLOGICAL Hx Neurological Disorder: No - HEENT Hx HEENT Problems: Yes Hx Glaucoma: Yes Other/Comment: Cataract surgery both eyes 2 yrs ago - RENAL Hx Chronic Kidney Disease: No - ENDOCRINE/METABOLIC Hx Endocrine Disorders: No Hx Diabetes Insipidus: No - HEMATOLOGICAL/ONCOLOGICAL Hx Human Immunodeficiency Virus (HIV): No - INTEGUMENTARY Hx Dermatological Problems: No - MUSCULOSKELETAL/RHEUMATOLOGICAL Hx Arthritis: Yes - GASTROINTESTINAL Hx Gastritis: Yes - GENITOURINARY/GYNECOLOGICAL Hx Genitourinary Disorders: No - PSYCHIATRIC Hx Anxiety: Yes - SURGICAL HISTORY Hx Coronary Stent: Yes (x3) - ANESTHESIA Hx Anesthesia: Yes Hx Anesthesia Reactions: No Hx Malignant Hyperthermia: No Meds Allergies/Adverse Reactions: Allergies Allergy/AdvReac Type Severity Reaction Status Date / Time ciprofloxacin AdvReac ITCHING Verified 02/15/17 17:06 - Medications Medications: Current Medications Alprazolam (Xanax) 0.25 mg PO [facility] Stop: 07/23/18 22:01 Last Admin: 07/16/18 23:55 Dose: 0.25 mg Amlodipine Besylate (Norvasc) 10 mg PO DAILY [facility] Last Admin: 07/16/18 18:43 Dose: 10 mg Aspirin (Aspirin Chewable) 81 mg PO DAILY [facility] Last Admin: 07/16/18 17:31 Dose: Not Given Atorvastatin Calcium (Lipitor) 10 mg PO [facility] Last Admin: 07/16/18 23:54 Dose: 10 mg Clopidogrel Bisulfate (Plavix) 75 mg PO DAILY [facility] Last Admin: 07/16/18 17:31 Dose: 75 mg Enoxaparin Sodium (Lovenox) 40 mg [place] DAILY [facility]; Protocol Last Admin: 07/16/18 18:45 Dose: 40 mg Escitalopram Oxalate (Lexapro) 10 mg PO DAILY [facility] Hydrochlorothiazide (Hydrodiuril) 25 mg PO DAILY [facility] Last Admin: 07/16/18 18:43 Dose: 25 mg Results - Vital Signs Recent Vital Signs: Last Vital Signs Temp 98.3 F 07/17/18 07:47 Pulse 79 07/17/18 07:47 Resp 18 07/17/18 07:47 BP 146/81 07/17/18 07:47 Pulse Ox 96 07/17/18 07:47 - Labs Result Diagrams: 07/16/18 11:55 07/16/18 11:55 Labs: Laboratory Results - last 24 hr 07/16/18 07/16/18 07/16/18 11:55 11:55 13:15 WBC 9.3 RBC 4.76 Hgb 13.6 Hct 40.7 MCV 85.5 MCH 28.5 MCHC 33.4 RDW 15.2 H Plt Count 283 MPV 8.1 Neut % (Auto) 68.4 Lymph % (Auto) 24.9 [place] % (Auto) 5.8 Eos % (Auto) 0.4 Baso % (Auto) 0.5 Neut # (Auto) 6.4 Lymph # (Auto) 2.3 [place] # (Auto) 0.5 Eos # (Auto) 0.0 Baso # (Auto) 0.0 Sodium 139 Potassium 3.8 Chloride 98 Carbon Dioxide 29 Anion Gap 16 BUN 18 H Creatinine 0.7 Est GFR ( Amer) > 60 Est GFR (Non-Af Amer) > 60 Random Glucose 94 Calcium 9.8 Total Bilirubin 1.3 AST 25 ALT 35 Alkaline Phosphatase 72 Troponin I < 0.0120 NT-Pro-B Natriuret Pep 150 Total Protein 6.7 Albumin 4.1 Globulin 2.6 Albumin/Globulin Ratio 1.6 Influenza Typ A,B (EIA) Negative for flu a/b 07/16/18 07/17/18 20:01 04:30 WBC RBC Hgb Hct MCV MCH MCHC RDW Plt Count MPV Neut % (Auto) Lymph % (Auto) [place] % (Auto) Eos % (Auto) Baso % (Auto) Neut # (Auto) Lymph # (Auto) [place] # (Auto) Eos # (Auto) Baso # (Auto) Sodium Potassium Chloride Carbon Dioxide Anion Gap BUN Creatinine Est GFR ( Amer) Est GFR (Non-Af Amer) Random Glucose Calcium Total Bilirubin AST ALT Alkaline Phosphatase Troponin I < 0.0120 < 0.0120 NT-Pro-B Natriuret Pep Total Protein Albumin Globulin Albumin/Globulin Ratio Influenza Typ A,B (EIA)
--- NOTE | 2018-07-17 08:03 | CP.PCM.CON ---
History of Present Illness - History of Present Illness History of Present Illness: patient seen/examined. full consult to follow echocardiogram blood pressure control will schedule outpatient stress test Past Patient History - Past Medical History & Family History Past Medical History?: Yes - Past Social History Smoking Status: Never Smoked - CARDIAC Hx Hypertension: Yes - PULMONARY Hx Asthma: Yes Hx Bronchitis: Yes Hx Chronic Obstructive Pulmonary Disease (COPD): Yes Hx Emphysema: Yes Hx Pneumonia: Yes - NEUROLOGICAL Hx Neurological Disorder: No - HEENT Hx HEENT Problems: Yes Hx Glaucoma: Yes Other/Comment: Cataract surgery both eyes 2 yrs ago - RENAL Hx Chronic Kidney Disease: No - ENDOCRINE/METABOLIC Hx Endocrine Disorders: No Hx Diabetes Insipidus: No - HEMATOLOGICAL/ONCOLOGICAL Hx Human Immunodeficiency Virus (HIV): No - INTEGUMENTARY Hx Dermatological Problems: No - MUSCULOSKELETAL/RHEUMATOLOGICAL Hx Arthritis: Yes - GASTROINTESTINAL Hx Gastritis: Yes - GENITOURINARY/GYNECOLOGICAL Hx Genitourinary Disorders: No - PSYCHIATRIC Hx Anxiety: Yes - SURGICAL HISTORY Hx Coronary Stent: Yes (x3) - ANESTHESIA Hx Anesthesia: Yes Hx Anesthesia Reactions: No Hx Malignant Hyperthermia: No Meds Allergies/Adverse Reactions: Allergies Allergy/AdvReac Type Severity Reaction Status Date / Time ciprofloxacin AdvReac ITCHING Verified 02/15/17 17:06 - Medications Medications: Current Medications Alprazolam (Xanax) 0.25 mg PO [facility] Stop: 07/23/18 22:01 Last Admin: 07/16/18 23:55 Dose: 0.25 mg Amlodipine Besylate (Norvasc) 10 mg PO DAILY [facility] Last Admin: 07/16/18 18:43 Dose: 10 mg Aspirin (Aspirin Chewable) 81 mg PO DAILY [facility] Last Admin: 07/16/18 17:31 Dose: Not Given Atorvastatin Calcium (Lipitor) 10 mg PO [facility] Last Admin: 07/16/18 23:54 Dose: 10 mg Clopidogrel Bisulfate (Plavix) 75 mg PO DAILY [facility] Last Admin: 07/16/18 17:31 Dose: 75 mg Enoxaparin Sodium (Lovenox) 40 mg SC DAILY [facility]; Protocol Last Admin: 07/16/18 18:45 Dose: 40 mg Escitalopram Oxalate (Lexapro) 10 mg PO DAILY [facility] Hydrochlorothiazide (Hydrodiuril) 25 mg PO DAILY [facility] Last Admin: 07/16/18 18:43 Dose: 25 mg Results - Vital Signs Recent Vital Signs: Last Vital Signs Temp 98.3 F 07/17/18 07:47 Pulse 79 07/17/18 07:47 Resp 18 07/17/18 07:47 BP 146/81 07/17/18 07:47 Pulse Ox 96 07/17/18 07:47 - Labs Result Diagrams: 07/16/18 11:55 07/16/18 11:55 Labs: Laboratory Results - last 24 hr 07/16/18 07/16/18 07/16/18 11:55 11:55 13:15 WBC 9.3 RBC 4.76 Hgb 13.6 Hct 40.7 MCV 85.5 MCH 28.5 MCHC 33.4 RDW 15.2 H Plt Count 283 MPV 8.1 Neut % (Auto) 68.4 Lymph % (Auto) 24.9 [place] % (Auto) 5.8 Eos % (Auto) 0.4 Baso % (Auto) 0.5 Neut # (Auto) 6.4 Lymph # (Auto) 2.3 [place] # (Auto) 0.5 Eos # (Auto) 0.0 Baso # (Auto) 0.0 Sodium 139 Potassium 3.8 Chloride 98 Carbon Dioxide 29 Anion Gap 16 BUN 18 H Creatinine 0.7 Est GFR ( Amer) > 60 Est GFR (Non-Af Amer) > 60 Random Glucose 94 Calcium 9.8 Total Bilirubin 1.3 AST 25 ALT 35 Alkaline Phosphatase 72 Troponin I < 0.0120 NT-Pro-B Natriuret Pep 150 Total Protein 6.7 Albumin 4.1 Globulin 2.6 Albumin/Globulin Ratio 1.6 Influenza Typ A,B (EIA) Negative for flu a/b 07/16/18 07/17/18 20:01 04:30 WBC RBC Hgb Hct MCV MCH MCHC RDW Plt Count MPV Neut % (Auto) Lymph % (Auto) [place] % (Auto) Eos % (Auto) Baso % (Auto) Neut # (Auto) Lymph # (Auto) [place] # (Auto) Eos # (Auto) Baso # (Auto) Sodium Potassium Chloride Carbon Dioxide Anion Gap BUN Creatinine Est GFR ( Amer) Est GFR (Non-Af Amer) Random Glucose Calcium Total Bilirubin AST ALT Alkaline Phosphatase Troponin I < 0.0120 < 0.0120 NT-Pro-B Natriuret Pep Total Protein Albumin Globulin Albumin/Globulin Ratio Influenza Typ A,B (EIA)
--- NOTE | 2018-07-17 08:19 | CP.PCM.HP ---
History of Present Illness - History of Present Illness History of Present Illness: 78 YR OLD FEMALE ADMITTED WITH CHEST PAINS AND SHORTNESS OF BREATH X SEVERAL DAYS.SHE HAD STOPPED TAKING HER BLOOD PRESSURE MEDS X SEVERAL WEEKS DUE TO ANXIETY.HER BP HAD REMAINED ELEVATED X SEVERAL DAYS ASSOCIATED WITH DIZZINESS AND HEADACHES. PMX--COPD,ASHD[S/P CARDIAC CATH AND STENT PLACEMENT],ANXIETY,HTN,ARTHRITIS,GASTRITIS UNREMARKABLE FAMILY HX SOC HX--NON-SMOKER,NO DRUG/ETOH USE -----LIVES ALONE BUT HAS A SUPPORTIVE FAMILY Present on Admission - Present on Admission Any Indicators Present on Admission: No Past Patient History - Past Medical History & Family History Past Medical History?: Yes - Past Social History Smoking Status: Never Smoked - CARDIAC Hx Hypertension: Yes - PULMONARY Hx Asthma: Yes Hx Bronchitis: Yes Hx Chronic Obstructive Pulmonary Disease (COPD): Yes Hx Emphysema: Yes Hx Pneumonia: Yes - NEUROLOGICAL Hx Neurological Disorder: No - HEENT Hx HEENT Problems: Yes Hx Glaucoma: Yes Other/Comment: Cataract surgery both eyes 2 yrs ago - RENAL Hx Chronic Kidney Disease: No - ENDOCRINE/METABOLIC Hx Endocrine Disorders: No Hx Diabetes Insipidus: No - HEMATOLOGICAL/ONCOLOGICAL Hx Human Immunodeficiency Virus (HIV): No - INTEGUMENTARY Hx Dermatological Problems: No - MUSCULOSKELETAL/RHEUMATOLOGICAL Hx Arthritis: Yes - GASTROINTESTINAL Hx Gastritis: Yes - GENITOURINARY/GYNECOLOGICAL Hx Genitourinary Disorders: No - PSYCHIATRIC Hx Anxiety: Yes - SURGICAL HISTORY Hx Coronary Stent: Yes (x3) - ANESTHESIA Hx Anesthesia: Yes Hx Anesthesia Reactions: No Hx Malignant Hyperthermia: No Meds Allergies/Adverse Reactions: Allergies Allergy/AdvReac Type Severity Reaction Status Date / Time ciprofloxacin AdvReac ITCHING Verified 02/15/17 17:06 Physical Exam - Constitutional Appears: Well, No Acute Distress, Chronically Ill - Head Exam Head Exam: ATRAUMATIC, NORMAL INSPECTION, NORMOCEPHALIC - Eye Exam Eye Exam: EOMI, Normal appearance, PERRL Pupil Exam: NORMAL ACCOMODATION, PERRL - ENT Exam ENT Exam: Mucous Membranes Moist, Normal Exam - Neck Exam Neck exam: Positive for: Normal Inspection - Respiratory Exam Respiratory Exam: Decreased Breath Sounds, Prolonged Expiratory Phase, Rales, Wheezes, NORMAL BREATHING PATTERN - Cardiovascular Exam Cardiovascular Exam: REGULAR RHYTHM - GI/Abdominal Exam GI & Abdominal Exam: Normal Bowel Sounds, Soft. absent: Tenderness - Rectal Exam Rectal Exam: NORMAL INSPECTION - Extremities Exam Extremities exam: Positive for: pedal edema Additional comments: ARTHRITIS CHANGES - Back Exam Back exam: NORMAL INSPECTION - Neurological Exam Neurological exam: Alert, CN II-XII Intact, Normal Gait, Oriented x3, Reflexes Normal - Psychiatric Exam Psychiatric exam: Flat Affect - Skin Skin Exam: Dry, Intact, Normal Color, Warm Results - Vital Signs Recent Vital Signs: Last Vital Signs Temp 98.3 F 07/17/18 07:47 Pulse 79 07/17/18 07:47 Resp 18 07/17/18 07:47 BP 146/81 07/17/18 07:47 Pulse Ox 96 07/17/18 07:47 - Labs Result Diagrams: 07/16/18 11:55 07/16/18 11:55 Labs: Laboratory Results - last 24 hr 07/16/18 07/16/18 07/16/18 11:55 11:55 13:15 WBC 9.3 RBC 4.76 Hgb 13.6 Hct 40.7 MCV 85.5 MCH 28.5 MCHC 33.4 RDW 15.2 H Plt Count 283 MPV 8.1 Neut % (Auto) 68.4 Lymph % (Auto) 24.9 [place] % (Auto) 5.8 Eos % (Auto) 0.4 Baso % (Auto) 0.5 Neut # (Auto) 6.4 Lymph # (Auto) 2.3 [place] # (Auto) 0.5 Eos # (Auto) 0.0 Baso # (Auto) 0.0 Sodium 139 Potassium 3.8 Chloride 98 Carbon Dioxide 29 Anion Gap 16 BUN 18 H Creatinine 0.7 Est GFR ( Amer) > 60 Est GFR (Non-Af Amer) > 60 Random Glucose 94 Calcium 9.8 Total Bilirubin 1.3 AST 25 ALT 35 Alkaline Phosphatase 72 Troponin I < 0.0120 NT-Pro-B Natriuret Pep 150 Total Protein 6.7 Albumin 4.1 Globulin 2.6 Albumin/Globulin Ratio 1.6 Influenza Typ A,B (EIA) Negative for flu a/b 07/16/18 07/17/18 20:01 04:30 WBC RBC Hgb Hct MCV MCH MCHC RDW Plt Count MPV Neut % (Auto) Lymph % (Auto) [place] % (Auto) Eos % (Auto) Baso % (Auto) Neut # (Auto) Lymph # (Auto) [place] # (Auto) Eos # (Auto) Baso # (Auto) Sodium Potassium Chloride Carbon Dioxide Anion Gap BUN Creatinine Est GFR ( Amer) Est GFR (Non-Af Amer) Random Glucose Calcium Total Bilirubin AST ALT Alkaline Phosphatase Troponin I < 0.0120 < 0.0120 NT-Pro-B Natriuret Pep Total Protein Albumin Globulin Albumin/Globulin Ratio Influenza Typ A,B (EIA) Assessment & Plan - Assessment and Plan (Free Text) Assessment: CHEST PAIN--R/O ACUTE CORONARY SYNDROME HX OF ASHD--S/P STENT PLACEMENT UNCONTROLLED HTN COPD EXACERBATION ANXIETY WITH DEPRESSION DECONDITIONING Plan: CARDIOLOGY EVAL ECHO NEBULIZED DUONEB RX O2 MONITOR IN TELE FLOOR REPRESENTATIVE FOR SUBACUTE CARE--REQUESTED BY PT[RE-DECONDITIONING] - Date & Time Date: 07/17/18 Time: 08:23
[2018-07-17] MEDS: Enoxaparin 40 mg Syringe SC SCH (08:51)
[2018-07-17] MEDS: Lactulose 10 gm/15 ml Syrup PO SCH (09:09)
--- NOTE | 2018-07-17 12:41 | CARD ---
APPROVED REPORT Date of service: 07/17/2018 EKG Measurement Heart [id number] <Conclusion> Normal sinus rhythm Left axis deviation Minimal voltage criteria for LVH, may be normal variant Abnormal ECG
[2018-07-17] MEDS: Albuterol-Ipratrop 3 mg / 0.5 (3 ml) UD INH SCH ×2 (15:40→18:59)
--- NOTE | 2018-07-17 21:08 | CARD ---
APPROVED REPORT Date of service: 07/17/2018 EXAM: Two-dimensional and M-mode echocardiogram with Doppler and color Doppler. Other Information Quality : GoodRhythm : NSR INDICATION Dyspnea 2D DIMENSIONS IVSd1.04 (0.7-1.1cm)LVDd4.31 (3.9-5.9cm) LVOT Diameter1.73 (1.8-2.4cm)PWd0.93 (0.7-1.1cm) IVSs1.44 (0.8-1.2cm)LVDs2.73 (2.5-4.0cm) FS (%) 36.6 %PWs1.51 (0.8-1.2cm) M-Mode DIMENSIONS Left Atrium (MM)3.06 (2.5-4.0cm)IVSd0.95 (0.7-1.1cm) Aortic Root3.06 (2.2-3.7cm)LVDd4.66 (4.0-5.6cm) Aortic Cusp Exc.1.29 (1.5-2.0cm)PWd1.08 (0.7-1.1cm) IVSs1.62 cmFS (%) 36 % LVDs2.99 (2.0-3.8cm)PWs1.42 cm Aortic Valve AoV Peak Rxrbsaaq102.2cm/sAoV VTI62.5cmAO Peak GR.36mmHg LVOT Peak Ylcxxcrf172.5cm/sLVOT VTI21.98cmAO Mean GR.20mmHg GREGORIO (VMAX)0.86fb1VKD (VTI)0.08su1ZH P 1/2 Bsrc104gk Mitral Valve MV E Mwoltokr50.5cm/sMV DECEL [id number] A Oitlzdvq34.8cm/s MV ZDD13tgX/A ratio0.7MVA (PHT)2.93cm2 TDI Lateral E' Peak V5.54cm/sMedial E' Peak V5.87cm/sE/Lateral E'9.8 E/Medial E'9.3 Tricuspid Valve TR Peak Zxsbzxhf080kt/sRAP IMHYTXHN44dxBpEI Peak Gr.24mmHg [id number] LEFT VENTRICLE The left ventricle is normal size. There is normal left ventricular wall thickness. The left ventricular systolic function is normal. The estimated ejection fraction is 60-65% No regional wall motion abnormalities noted.. Transmitral Doppler flow pattern is Grade I-abnormal relaxation pattern. No left ventricle thrombus noted on this study. There is no ventricular septal defect visualized. There is no left ventricular aneurysm. There is no mass noted in the left ventricle. RIGHT VENTRICLE The right ventricle is normal size. There is normal right ventricular wall thickness. The right ventricular systolic function is normal. ATRIA The left atrium size is normal. The right atrium size is normal. The interatrial septum is intact with no evidence for an atrial septal defect. AORTIC VALVE The aortic valve is normal in structure. Mild to moderate aortic regurgitation is present. There is no aortic valvular stenosis. There is no aortic valvular vegetation. MITRAL VALVE The mitral valve is normal in structure. There is no evidence of mitral valve prolapse. There is no mitral valve stenosis. There is trivial mitral valve regurgitation noted. TRICUSPID VALVE The tricuspid valve is normal in structure. There is trace tricuspid valve regurgitation noted. RVSP is calculated at 30 mm Hg. There is no tricuspid valve prolapse or vegetation. There is no tricuspid valve stenosis. PULMONIC VALVE The pulmonary valve is normal in structure. There is no pulmonic valvular regurgitation. There is no pulmonic valvular stenosis. GREAT VESSELS The aortic root is normal in size. The ascending aorta is normal in size. The pulmonary artery is normal. The IVC is normal in size and collapses >50% with inspiration. PERICARDIAL EFFUSION There is no pericardial effusion. There is no pleural effusion. <Conclusion> The estimated ejection fraction is 60-65% Transmitral Doppler flow pattern is Grade I-abnormal relaxation pattern. The left atrium size is normal. Mild to moderate aortic regurgitation is present. There is trivial mitral valve regurgitation noted. There is trace tricuspid valve regurgitation noted. RVSP is calculated at 30 mm Hg.
[2018-07-18] MEDS: Albuterol-Ipratrop 3 mg / 0.5 (3 ml) UD INH SCH ×4 (01:03→19:27)
--- NOTE | 2018-07-18 08:41 | CP.PCM.PN ---
Subjective - Date & Time of Evaluation Date of Evaluation: 07/18/18 Time of Evaluation: 08:41 - Subjective Subjective: STILL DYSPNEIC AT REST AND ON MILD EXERTION COUGH PERSISTS STILL FEELS WEAK C/O ANXIETY CHEST PAINS IMPROVED Objective - Vital Signs/Intake and Output Vital Signs (last 24 hours): Temp Pulse Resp BP Pulse Ox 97.9 F 72 18 135/77 95 07/18/18 07:53 07/18/18 07:53 07/18/18 07:53 07/18/18 07:53 07/18/18 07:53 - Medications Medications: Current Medications Albuterol/Ipratropium (Duoneb 3 Mg/0.5 Mg (3 Ml) Ud) 3 ml INH RQ6 [facility] Last Admin: 07/18/18 08:05 Dose: 3 ml Alprazolam (Xanax) 0.25 mg PO [facility] Stop: 07/23/18 22:01 Last Admin: 07/17/18 22:09 Dose: 0.25 mg Amlodipine Besylate (Norvasc) 10 mg PO DAILY [facility] Last Admin: 07/17/18 08:52 Dose: 10 mg Aspirin (Aspirin Chewable) 81 mg PO DAILY [facility] Last Admin: 07/17/18 08:48 Dose: 81 mg Atorvastatin Calcium (Lipitor) 10 mg PO HS [facility] Last Admin: 07/17/18 22:09 Dose: 10 mg Clopidogrel Bisulfate (Plavix) 75 mg PO DAILY [facility] Last Admin: 07/17/18 08:52 Dose: 75 mg Enoxaparin Sodium (Lovenox) 40 mg SC DAILY [facility]; Protocol Last Admin: 07/17/18 08:51 Dose: 40 mg Escitalopram Oxalate (Lexapro) 10 mg PO DAILY [facility] Last Admin: 07/17/18 08:51 Dose: 10 mg Hydrochlorothiazide (Hydrodiuril) 25 mg PO DAILY [facility] Last Admin: 07/17/18 08:51 Dose: 25 mg Lactulose (Enulose) 10 gm PO DAILY [facility] Last Admin: 07/17/18 09:09 Dose: 10 gm - Labs Labs: 07/16/18 11:55 07/16/18 11:55 - Constitutional Appears: Chronically Ill - Head Exam Head Exam: ATRAUMATIC, NORMAL INSPECTION, NORMOCEPHALIC - Eye Exam Eye Exam: EOMI, Normal appearance, PERRL Pupil Exam: NORMAL ACCOMODATION, PERRL - ENT Exam ENT Exam: Mucous Membranes Moist, Normal Exam - Neck Exam Neck Exam: Full ROM, Normal Inspection. absent: Lymphadenopathy - Respiratory Exam Respiratory Exam: Decreased Breath Sounds, Prolonged Expiratory Phase, Wheezes, NORMAL BREATHING PATTERN - Cardiovascular Exam Cardiovascular Exam: REGULAR RHYTHM, +S1, +S2. absent: Murmur - GI/Abdominal Exam GI & Abdominal Exam: Soft, Normal Bowel Sounds. absent: Tenderness - Rectal Exam Rectal Exam: NORMAL INSPECTION - Extremities Exam Extremities Exam: Full ROM, Normal Capillary Refill, Normal Inspection. absent: Joint Swelling, Pedal Edema - Back Exam Back Exam: NORMAL INSPECTION - Neurological Exam Neurological Exam: Alert, Awake, CN II-XII Intact, Normal Gait, Oriented x3 - Psychiatric Exam Psychiatric exam: Normal Affect, Normal Mood - Skin Skin Exam: Dry, Intact, Normal Color, Warm Assessment and Plan - Assessment and Plan (Free Text) Assessment: CHEST PAIN ACUTE EXAC OF COPD ASHD HTN ANXIETY Plan: CONTINUE CURRENT RX FOR SUBACUTE CARE
[2018-07-18] MEDS ORDERED: methylPREDNISolone 40 MG in Sodium Chloride 0.9% 50 ML IVPB SCH (09:00)
[2018-07-18] MEDS: Lactulose 10 gm/15 ml Syrup PO SCH (09:17)
[2018-07-18] MEDS: Enoxaparin 40 mg Syringe SC SCH (09:18)
[2018-07-18] MEDS: MethylPREDNISolone 40 mg Vial IVP SCH (09:25)
[2018-07-18] MEDS ORDERED: Bisacodyl 5mg EC Tab PO ONE (20:00)
[2018-07-18] MEDS ORDERED: guaiFENesin-DM 600-30 mg ER Tab PO ONE (21:53)
[2018-07-19] MEDS: Albuterol-Ipratrop 3 mg / 0.5 (3 ml) UD INH SCH ×4 (02:29→19:34)
[2018-07-19] MEDS: Lactulose 10 gm/15 ml Syrup PO SCH (08:42)
[2018-07-19] MEDS: Enoxaparin 40 mg Syringe SC SCH (08:44)
[2018-07-19] MEDS: MethylPREDNISolone 40 mg Vial IVP SCH (08:45)
[2018-07-19] MEDS ORDERED: Promethazine DM 12.5 mg-30 mg/10 ml Syrup PO PRN (10:10)
--- NOTE | 2018-07-19 10:15 | CP.PCM.PN ---
Subjective - Date & Time of Evaluation Date of Evaluation: 07/19/18 Time of Evaluation: 10:15 - Subjective Subjective: C/O HEADACHES/DIZZINESS AND GENERALIZED WEAKNESS C/O SOB AND OCCASSIONAL CHEST PAINS Objective - Vital Signs/Intake and Output Vital Signs (last 24 hours): Temp Pulse Resp BP Pulse Ox 98 F 86 18 117/67 96 07/19/18 08:16 07/19/18 09:00 07/19/18 08:16 07/19/18 08:44 07/19/18 08:16 - Medications Medications: Current Medications Albuterol/Ipratropium (Duoneb 3 Mg/0.5 Mg (3 Ml) Ud) 3 ml INH RQ6 [facility] Last Admin: 07/19/18 07:23 Dose: 3 ml Alprazolam (Xanax) 0.25 mg PO HS [facility] Stop: 07/23/18 22:01 Last Admin: 07/18/18 21:23 Dose: 0.25 mg Amlodipine Besylate (Norvasc) 10 mg PO DAILY [facility] Last Admin: 07/19/18 08:44 Dose: 10 mg Aspirin (Aspirin Chewable) 81 mg PO DAILY [facility] Last Admin: 07/19/18 08:42 Dose: 81 mg Atorvastatin Calcium (Lipitor) 10 mg PO HS [facility] Last Admin: 07/18/18 21:23 Dose: 10 mg Clopidogrel Bisulfate (Plavix) 75 mg PO DAILY [facility] Last Admin: 07/19/18 08:45 Dose: 75 mg Enoxaparin Sodium (Lovenox) 40 mg SC DAILY [facility]; Protocol Last Admin: 07/19/18 08:44 Dose: 40 mg Escitalopram Oxalate (Lexapro) 10 mg PO DAILY [facility] Last Admin: 07/19/18 08:43 Dose: 10 mg Hydrochlorothiazide (Hydrodiuril) 25 mg PO DAILY [facility] Last Admin: 07/19/18 08:43 Dose: 25 mg Lactulose (Enulose) 10 gm PO DAILY [facility] Last Admin: 07/19/18 08:42 Dose: 10 gm Methylprednisolone (Solu-Medrol) 40 mg IVP DAILY [facility] Last Admin: 07/19/18 08:45 Dose: 40 mg Promethazine HCl/Dextromethorphan (Phenergan Dm Syrup) 10 ml PO Q6 PRN PRN Reason: Cough - Labs Labs: 07/16/18 11:55 07/16/18 11:55 - Constitutional Appears: Chronically Ill - Head Exam Head Exam: ATRAUMATIC, NORMAL INSPECTION, NORMOCEPHALIC - Eye Exam Eye Exam: EOMI, Normal appearance, PERRL Pupil Exam: NORMAL ACCOMODATION, PERRL - ENT Exam ENT Exam: Mucous Membranes Moist, Normal Exam - Neck Exam Neck Exam: Full ROM, Normal Inspection. absent: Lymphadenopathy - Respiratory Exam Respiratory Exam: Decreased Breath Sounds, Prolonged Expiratory Phase, Rales, NORMAL BREATHING PATTERN - Cardiovascular Exam Cardiovascular Exam: REGULAR RHYTHM, +S1, +S2. absent: Murmur - GI/Abdominal Exam GI & Abdominal Exam: Soft, Normal Bowel Sounds. absent: Tenderness - Rectal Exam Rectal Exam: NORMAL INSPECTION - Extremities Exam Extremities Exam: Full ROM, Normal Capillary Refill, Normal Inspection. absent: Joint Swelling, Pedal Edema - Back Exam Back Exam: NORMAL INSPECTION - Neurological Exam Neurological Exam: Abnormal Gait, Alert, Awake, CN II-XII Intact, Oriented x3 - Psychiatric Exam Psychiatric exam: Normal Affect, Normal Mood - Skin Skin Exam: Dry, Intact, Normal Color, Warm Assessment and Plan - Assessment and Plan (Free Text) Assessment: CHEST PAIN ASHD HTN COPD EXAC HEADACHES/DIZZINESS--?[employer] PATHOLOGY Plan: CT SCAN OF BRAIN CONTINUE RX ORDERED FOR D/C TO SUBACUTE CARE IN AM IF STABLE
--- NOTE | 2018-07-19 11:19 | CT ---
Date of service: 07/19/2018 PROCEDURE: CT HEAD WITHOUT CONTRAST. HISTORY: Headache and dizziness COMPARISON: None available. TECHNIQUE: Axial computed tomography images were obtained through the head/brain without intravenous contrast. Radiation dose: Total exam DLP = 885.54 mGy-cm. This CT exam was performed using one or more of the following dose reduction techniques: Automated exposure control, adjustment of the mA and/or kV according to patient size, and/or use of iterative reconstruction technique. FINDINGS: HEMORRHAGE: No intracranial hemorrhage. BRAIN: There are mild chronic microangiopathic changes. There is no mass, mass effect or abnormal extra-axial fluid collection. There is no territorial infarction. The midline sagittal structures are normal. VENTRICLES: There is mild age-related global parenchymal volume loss and proportionate enlargement of the ventricles and cortical sulci. CALVARIUM: There is no calvarial fracture or extracranial soft tissue swelling. There is mild hyperostosis frontalis interna PARANASAL SINUSES: Predominantly clear. MASTOID AIR CELLS: Small left mastoid effusion. The right mastoid air cells are clear. OTHER FINDINGS: None. IMPRESSION: No acute intracranial abnormality. If there is a persistent focal neurologic deficit and an ongoing clinical concern for acute infarction, an MRI of the brain without intravenous contrast would be a more sensitive modality for evaluation of hyperacute/acute ischemic infarction. Small left mastoid effusion.
[2018-07-20] MEDS: Albuterol-Ipratrop 3 mg / 0.5 (3 ml) UD INH SCH ×4 (02:19→19:23)
[2018-07-20] MEDS: Lactulose 10 gm/15 ml Syrup PO SCH (09:19)
[2018-07-20] MEDS: Enoxaparin 40 mg Syringe SC SCH (09:20)
[2018-07-20] MEDS: MethylPREDNISolone 40 mg Vial IVP SCH (09:23)
--- NOTE | 2018-07-20 11:01 | CP.PCM.DIS ---
Provider - Provider Date of Admission: 07/17/18 08:08 Attending physician: Christofer Camacho MD Consults: 07/16/18 16:35 Cardiology Consult Routine Comment: Chest Pain, hx of cardiac stents x 2 Consulting Provider: Marcos Schultz Consulting Physician: Marcos Schultz Reason for Consult: Chest pain w/ Hx of cardiac stenst x 2 07/16/18 16:42 Case Management Referral Routine Comment: Always Company Physician Instructions: Reason For Exam: Patient w/ [facility] , 4 hrs/day Mon till Monday Reason for Referral: Discharge Planning 07/17/18 08:11 Social Work Referral Routine Comment: [facility] Physician Instructions: Reason For Exam: subacute care--[facility] Time Spent in preparation of Discharge (in minutes): 35 Diagnosis - Discharge Diagnosis (1) Chest pain Status: Acute (2) Anxiety and depression Status: Acute (3) Arthritis Status: Acute (4) COPD exacerbation Status: Acute (5) Constipation Status: Acute (6) Coronary artery disease Status: Acute (7) HTN (hypertension) Status: Acute (8) Respiratory distress Status: Acute Hospital Course - Lab Results Lab Results: Most Recent Lab Values WBC 9.3 K/uL (4.8-10.8) 07/16/18 11:55 RBC 4.76 Mil/uL (3.80-5.20) 07/16/18 11:55 Hgb 13.6 g/dL (12.0-16.0) 07/16/18 11:55 Hct 40.7 % (34.0-47.0) 07/16/18 11:55 MCV 85.5 fl (81.0-99.0) 07/16/18 11:55 MCH 28.5 pg (27.0-31.0) 07/16/18 11:55 MCHC 33.4 g/dL (33.0-37.0) 07/16/18 11:55 RDW 15.2 % (11.5-14.5) H 07/16/18 11:55 Plt Count 283 K/uL (130-400) 07/16/18 11:55 MPV 8.1 fl (7.2-11.7) 07/16/18 11:55 Neut % (Auto) 68.4 % (50.0-75.0) 07/16/18 11:55 Lymph % (Auto) 24.9 % (20.0-40.0) 07/16/18 11:55 [place] % (Auto) 5.8 % (0.0-10.0) 07/16/18 11:55 Eos % (Auto) 0.4 % (0.0-4.0) 07/16/18 11:55 Baso % (Auto) 0.5 % (0.0-2.0) 07/16/18 11:55 Neut # (Auto) 6.4 K/uL (1.8-7.0) 07/16/18 11:55 Lymph # (Auto) 2.3 K/uL (1.0-4.3) 07/16/18 11:55 [place] # (Auto) 0.5 K/uL (0.0-0.8) 07/16/18 11:55 Eos # (Auto) 0.0 K/uL (0.0-0.7) 07/16/18 11:55 Baso # (Auto) 0.0 K/uL (0.0-0.2) 07/16/18 11:55 Sodium 139 mmol/l (132-148) 07/16/18 11:55 Potassium 3.8 MMOL/L (3.6-5.0) 07/16/18 11:55 Chloride 98 mmol/L (98-107) 07/16/18 11:55 Carbon Dioxide 29 mmol/L (22-30) 07/16/18 11:55 Anion Gap 16 (10-20) 07/16/18 11:55 BUN 18 mg/dl (7-17) H 07/16/18 11:55 Creatinine 0.7 mg/dl (0.7-1.2) 07/16/18 11:55 Est GFR ( Amer) > 60 07/16/18 11:55 Est GFR (Non-Af Amer) > 60 07/16/18 11:55 Random Glucose 94 mg/dL (65-105) 07/16/18 11:55 Calcium 9.8 mg/dL (8.4-10.2) 07/16/18 11:55 Total Bilirubin 1.3 mg/dl (0.2-1.3) 07/16/18 11:55 AST 25 U/L (14-36) 07/16/18 11:55 ALT 35 U/L (9-52) 07/16/18 11:55 Alkaline Phosphatase 72 U/L (38-126) 07/16/18 11:55 Troponin I < 0.0120 ng/mL (0.00-0.120) 07/17/18 04:30 NT-Pro-B Natriuret Pep 150 pg/ml (0-900) 07/16/18 11:55 Total Protein 6.7 G/DL (6.3-8.2) 07/16/18 11:55 Albumin 4.1 g/dL (3.5-5.0) 07/16/18 11:55 Globulin 2.6 gm/dL (2.2-3.9) 07/16/18 11:55 Albumin/Globulin Ratio 1.6 (1.0-2.1) 07/16/18 11:55 Influenza Typ A,B (EIA) Negative for flu a/b (NEGATIVE) 07/16/18 13:15 - Hospital Course Hospital Course: STILL DIZZY--CT SCAN OF BRAIN--UNREMARKABLE SOB LESS STILL WEAK Discharge Exam - Head Exam Head Exam: ATRAUMATIC, NORMAL INSPECTION, NORMOCEPHALIC - Eye Exam Eye Exam: EOMI, Normal appearance, PERRL Pupil Exam: NORMAL ACCOMODATION, PERRL - Respiratory Exam Respiratory Exam: Decreased Breath Sounds, Prolonged Expiratory Phase, NORMAL BREATHING PATTERN - GI/Abdominal Exam GI & Abdominal Exam: Normal Bowel Sounds - Rectal Exam Rectal Exam: NORMAL INSPECTION - Neurological Exam Neurological exam: Abnormal Gait, Alert, CN II-XII Intact, Oriented x3, Reflexes Normal - Psychiatric Exam Psychiatric exam: Normal Affect, Normal Mood - Skin Skin Exam: Dry, Intact, Normal Color, Warm Discharge Plan - Discharge Medications Prescriptions: Aspirin [Aspirin Chewable] 81 mg PO DAILY #30 chew Albuterol/Ipratropium [Duoneb 3 mg/0.5 mg (3 ml) UD] 3 ml INH RQ6 #30 neb Atorvastatin [Lipitor] 10 mg PO HS #30 tab - Follow Up Plan Condition: STABLE Disposition: HOME/ ROUTINE Instructions: Chest Pain (DC), Exacerbation of COPD (DC) Additional Instructions: TRANSFER TO SUBACUTE CARE Referrals: Christofer Camacho MD [Staff Provider] - Marcos Schultz MD [Staff Provider] -
[2018-07-20 16:33] VITALS: RESP 16; O2SAT 95
[2018-07-20 20:13] VITALS: BP 134/78; PULSE 82; TEMP 98.4
--- NOTE | 2018-07-25 11:08 | PQF ---
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 DX: Chest pain R/O ACS The patient's Clinical Indicators include: Admitted with SOB and Chest pain. PMH: CAD, ASHD, S/P cardiac catheterization with stent placement, HTN, HLD EKG: NSR, LAD, minimal voltage criteria for LVH , may be normal variant Rx: Plavix, Aspirin, Norvasc, Lipitor ECHO: EF 60-65% Grade I abnormal relaxation pattern, mild to moderate AR, trivial MR, trace TR Cardiac enzymes x 3 negative Query created by: Anna Marie Greer on 07/20/2018 11:31 AM Electronically signed by: Christofer Camacho MD 07/25/2018 11:05 AM
== END 2018-07-20 19:45 | DRG 192 ==
LOC: H.ER 11:02 → H.ERHOLD 14:04 → H.TEL 15:14 → OBSVTOIN 07-17 08:08
PROVIDERS: ADMIT Internal Medicine Pulmonary Disease; ATTEND Internal Medicine Pulmonary Disease
DX: J43.9 Emphysema, unspecified (principal); R07.9 Chest pain, unspecified; I10 Essential (primary) hypertension; F41.8 Other specified anxiety disorders; I25.10 Atherosclerotic heart disease of native coronary artery without angina pectoris; Z95.5 Presence of coronary angioplasty implant and graft; M19.90 Unspecified osteoarthritis, unspecified site; R53.1 Weakness; K29.70 Gastritis, unspecified, without bleeding; K59.00 Constipation, unspecified; R42 Dizziness and giddiness; Z88.1 Allergy status to other antibiotic agents; E78.5 Hyperlipidemia, unspecified; Z79.02 Long term (current) use of antithrombotics/antiplatelets; R06.03 Acute respiratory distress